=== PATIENT | female | born 1970 | race Caucasian/White ===

== ENCOUNTER 2018-10-20 17:23 | Inpatient (IN) | payer BC ==
[2018-10-20] MEDS ORDERED: ONDANSETRON 4 MG/2 ML VIAL IVP STA (18:24)
[2018-10-20] MEDS ORDERED: MORPHINE SULFATE 4 MG/ML SYRINGE IV STA (18:24)
[2018-10-20] MEDS ORDERED: KETOROLAC 30 MG/ML 1 ML VIAL IVP STA (18:24)
[2018-10-20] MEDS ORDERED: SODIUM CHLORIDE 0.9% 1,000 ML IV STA ×2 (18:24)
--- NOTE | 2018-10-20 19:04 | ED ---
Abdominal Pain HPI - General Chief Complaint: Abdominal Pain Stated Complaint: abdominal pain Time Seen by Provider: 10/20/18 17:58 Source: patient, RN notes reviewed, old records reviewed Mode of arrival: ambulatory Limitations: no limitations - History of Present Illness Initial Comments: 48-year-old female presents emergency Department today. No lower abdominal pain , low-grade fevers and chills for the past 3 days. Patient states that she has had frequent urination. She reports that she's also been having heavy menstrual cycles and bleeding for the past few months. She reports that she has started estrogen and progesterone creams week or 2 ago. She states that her bleeding has stopped. Patient states she is following up with her [facility] doctor Jhoana. She is scheduled to have a hysterectomy due to his prolonged bleeding every fibroids. Patient states that when she called her OB they're concerned because she described a fever and there is concern for not origin for pain. - Related Data Home Medications Medication Instructions Recorded Confirmed Calcium/Magnesium 1 tab PO DAILY 10/20/18 10/20/18 Cyanocobalamin (Vitamin B-12) 1,000 mcg PO DAILY 10/20/18 10/20/18 [Vitamin B-12] Diflucan (Unknown Dose) 1 tab PO MCCORMICK 10/20/18 10/20/18 Happy Pms 1 tab PO DAILY 10/20/18 10/20/18 Licorice Root 1 tab PO DAILY 10/20/18 10/20/18 Vitamin D3 10,000 Iu Oral Solution 5,000 units PO DAILY 10/20/18 10/20/18 Allergies Allergy/AdvReac Type Severity Reaction Status Date / Time No Known Allergies Allergy Verified 10/20/18 17:27 Review of Systems ROS Statement: Those systems with pertinent positive or pertinent negative responses have been documented in the HPI. ROS Other: All systems not noted in ROS Statement are negative. Past Medical History Past Medical History: Diabetes Mellitus Additional Past Medical History / Comment(s): MENORRHAGIA History of Any Multi-Drug Resistant Organisms: None Reported Past Surgical History: Section, Tonsillectomy, Tubal Ligation Additional Past Surgical History / Comment(s): tummy tuck, meliton cataracts, PILONIDAL CYST X3 (LAST 12/26/15), HEMORRHOIDECTOMY (12/26/15), uterine ablation Past Anesthesia/Blood Transfusion Reactions: Motion Sickness, Postoperative Nausea & Vomiting (PONV) Past Psychological History: Anxiety, Depression Smoking Status: Current every day smoker Past Alcohol Use History: Occasional Past Drug Use History: None Reported - Past Family History Mother Family Medical History: No Reported History General Exam - General Exam Comments Initial Comments: Well appearing 48-year-old female. No significant distress. Limitations: no limitations General appearance: alert, in no apparent distress Head exam: Present: atraumatic, normocephalic, normal inspection Eye exam: Present: normal appearance, PERRL, EOMI. Absent: scleral icterus, conjunctival injection, periorbital swelling ENT exam: Present: normal exam, mucous membranes moist Neck exam: Present: normal inspection. Absent: tenderness, meningismus, lymphadenopathy Respiratory exam: Present: normal lung sounds bilaterally. Absent: respiratory distress, wheezes, rales, rhonchi, stridor Cardiovascular Exam: Present: regular rate, normal rhythm, normal heart sounds. Absent: systolic murmur, diastolic murmur, rubs, gallop, clicks GI/Abdominal exam: Present: tenderness, normal bowel sounds. Absent: soft (His abdominal tenderness, guarding over the right lower quadrant.), distended, guarding, rebound, rigid Course Vital Signs 10/20/18 10/20/18 10/20/18 17:24 19:00 20:30 Temperature 98.4 F 101.7 F H 98.7 F Pulse Rate 99 76 Respiratory 18 18 Rate Blood Pressure 136/61 101/60 O2 Sat by Pulse 99 93 L Oximetry Medical Decision Making - Medical Decision Making 48-year-old female 3 days abdominal pain, low-grade fevers presents emergency Department today. She also reports some diarrhea. Treatment urination. At this time patient's white blood count cell count is significantly elevated at 21 ,000. She had a fever 101.7. She is given IV fluids, Toradol IV morphine for pain. She continues to describe lower abdominal pain despite pain medicine. CT was completed. Evidence of diffuse sigmoid diverticulitis. With white blood cell count being elevated 21,000 like to admit the Patient for IV antibiotics, she does meet sepsis criteria. Patient was initially hesitant about admission. I did discuss will she can leave on her own well being signing AMA. She eventually decided to stay. Started the Patient on IV Levaquin and Flagyl. Patient will be on a clear liquid diet. - Lab Data Result diagrams: 10/20/18 18:50 10/20/18 18:50 Lab Results 10/20/18 10/20/18 10/20/18 Range/Units 18:50 18:50 18:50 WBC 21.1 H (3.8-10.6) k/uL RBC 4.35 (3.80-5.40) m/uL Hgb 13.6 (11.4-16.0) gm/dL Hct 41.3 (34.0-46.0) % MCV 94.8 (80.0-100.0) fL MCH 31.4 (25.0-35.0) pg MCHC 33.1 (31.0-37.0) g/dL RDW 12.6 (11.5-15.5) % Plt Count 266 (150-450) k/uL Neutrophils % 81 % Lymphocytes % 13 % Monocytes % 4 % Eosinophils % 1 % Basophils % 0 % Neutrophils # 17.2 H (1.3-7.7) k/uL Lymphocytes # 2.7 (1.0-4.8) k/uL Monocytes # 0.8 (0-1.0) k/uL Eosinophils # 0.2 (0-0.7) k/uL Basophils # 0.1 (0-0.2) k/uL PT (9.0-12.0) sec INR (<1.2) APTT (22.0-30.0) sec Sodium 138 (137-145) mmol/L Potassium 4.1 (3.5-5.1) mmol/L Chloride 101 (98-107) mmol/L Carbon Dioxide 24 (22-30) mmol/L Anion Gap 13 mmol/L BUN 8 (7-17) mg/dL Creatinine 0.83 (0.52-1.04) mg/dL Est GFR (CKD-EPI)AfAm >90 (>60 ml/min/1.73 sqM) Est GFR (CKD-EPI)NonAf 83 (>60 ml/min/1.73 sqM) Glucose 101 H (74-99) mg/dL Plasma Lactic Acid Jose M 1.0 (0.7-2.0) mmol/L Calcium 9.5 (8.4-10.2) mg/dL Total Bilirubin 0.7 (0.2-1.3) mg/dL AST 17 (14-36) U/L ALT 31 (9-52) U/L Alkaline Phosphatase 57 (38-126) U/L Total Protein 7.3 (6.3-8.2) g/dL Albumin 4.3 (3.5-5.0) g/dL Amylase 38 (30-110) U/L Lipase 31 (23-300) U/L Urine Color Urine Appearance (Clear) Urine pH (5.0-8.0) Ur Specific [place] (1.001-1.035) Urine Protein (Negative) Urine Glucose (UA) (Negative) Urine Ketones (Negative) Urine Blood (Negative) Urine Nitrite (Negative) Urine Bilirubin (Negative) Urine Urobilinogen (<2.0) mg/dL Ur Leukocyte Esterase (Negative) Urine RBC (0-5) /hpf Urine WBC (0-5) /hpf Ur Squamous Epith Cells (0-4) /hpf Amorphous Sediment (None) /hpf Urine Bacteria (None) /hpf Urine Mucus (None) /hpf 10/20/18 10/20/18 Range/Units 18:50 18:50 WBC (3.8-10.6) k/uL RBC (3.80-5.40) m/uL Hgb (11.4-16.0) gm/dL Hct (34.0-46.0) % MCV (80.0-100.0) fL MCH (25.0-35.0) pg MCHC (31.0-37.0) g/dL RDW (11.5-15.5) % Plt Count (150-450) k/uL Neutrophils % % Lymphocytes % % Monocytes % % Eosinophils % % Basophils % % Neutrophils # (1.3-7.7) k/uL Lymphocytes # (1.0-4.8) k/uL Monocytes # (0-1.0) k/uL Eosinophils # (0-0.7) k/uL Basophils # (0-0.2) k/uL PT 10.2 (9.0-12.0) sec INR 1.0 (<1.2) APTT 26.1 (22.0-30.0) sec Sodium (137-145) mmol/L Potassium (3.5-5.1) mmol/L Chloride (98-107) mmol/L Carbon Dioxide (22-30) mmol/L Anion Gap mmol/L BUN (7-17) mg/dL Creatinine (0.52-1.04) mg/dL Est GFR (CKD-EPI)AfAm (>60 ml/min/1.73 sqM) Est GFR (CKD-EPI)NonAf (>60 ml/min/1.73 sqM) Glucose (74-99) mg/dL Plasma Lactic Acid Jose M (0.7-2.0) mmol/L Calcium (8.4-10.2) mg/dL Total Bilirubin (0.2-1.3) mg/dL AST (14-36) U/L ALT (9-52) U/L Alkaline Phosphatase (38-126) U/L Total Protein (6.3-8.2) g/dL Albumin (3.5-5.0) g/dL Amylase (30-110) U/L Lipase (23-300) U/L Urine Color Yellow Urine Appearance Cloudy H (Clear) Urine pH 6.0 (5.0-8.0) Ur Specific [place] 1.018 (1.001-1.035) Urine Protein 1+ H (Negative) Urine Glucose (UA) Negative (Negative) Urine Ketones 1+ H (Negative) Urine Blood Moderate H (Negative) Urine Nitrite Negative (Negative) Urine Bilirubin Negative (Negative) Urine Urobilinogen 2.0 (<2.0) mg/dL Ur Leukocyte Esterase Trace H (Negative) Urine RBC 18 H (0-5) /hpf Urine WBC 6 H (0-5) /hpf Ur Squamous Epith Cells 20 H (0-4) /hpf Amorphous Sediment Rare H (None) /hpf Urine Bacteria Few H (None) /hpf Urine Mucus Many H (None) /hpf - Radiology Data Radiology results: report reviewed Moderate marked sigmoid diverticulitis. Patient hasn't had a colonoscopy within the past 2 years when advised eventual follow-up with direct visualization. Disposition Clinical Impression: Sepsis, Diverticulitis Disposition: ADMITTED IP TO THIS HOSP Condition: Good Is patient prescribed a controlled substance at d/c from ED?: No Referrals: Aiden Rush III, MD [Primary Care Provider] - 1-2 days Time of Disposition: 21:14
[2018-10-20 19:22] LABS: Basophils # (A) 0.1 k/uL (0-0.2); Basophils % (A) 0 %; Eosinophils # (A) 0.2 k/uL (0-0.7); Eosinophils % (A) 1 %; HCT 41.3 % (34.0-46.0); HGB 13.6 gm/dL (11.4-16.0); Lymphocytes # (A) 2.7 k/uL (1.0-4.8); Lymphocytes % (A) 13 %; MCH 31.4 pg (25.0-35.0); MCHC 33.1 g/dL (31.0-37.0); MCV 94.8 fL (80.0-100.0); Mean Platelet Volume 6.5; Monocytes # (A) 0.8 k/uL (0-1.0); Monocytes % (A) 4 %; Neutrophils # (A) 17.2 k/uL (1.3-7.7); Neutrophils % (A) 81 %; Platelet Count 266 k/uL (150-450); RBC 4.35 m/uL (3.80-5.40); RDW 12.6 % (11.5-15.5); WBC 21.1 k/uL (3.8-10.6)
[2018-10-20 19:33] LABS: ALT 31 U/L (9-52); AST 17 U/L (14-36); Albumin 4.3 g/dL (3.5-5.0); Alkaline Phosphatase 57 U/L (38-126); Amylase 38 U/L (30-110); Anion Gap 13 mmol/L; Blood Urea Nitrogen 8 mg/dL (7-17); Calcium 9.5 mg/dL (8.4-10.2); Carbon Dioxide 24 mmol/L (22-30); Chloride 101 mmol/L (98-107); Glucose 101 mg/dL (74-99); Lipase 31 U/L (23-300); Potassium 4.1 mmol/L (3.5-5.1); Sodium 138 mmol/L (137-145); Total Bilirubin 0.7 mg/dL (0.2-1.3); Total Protein 7.3 g/dL (6.3-8.2)
[2018-10-20 19:40] LABS: Amorphous Sediment,Urine Rare /hpf; Appearance,Urine Cloudy (Clear); Bacteria,Urine Few /hpf; Bilirubin,Urine Negative (Negative); Blood,Urine Moderate (Negative); Color,Urine Yellow; Glucose,Urine (UA) Negative (Negative); Ketones,Urine 1+ (Negative); Leukocyte Esterase,Urine Trace (Negative); Mucus,Urine Many /hpf; Nitrite,Urine Negative (Negative); Protein,Urine 1+ (Negative); RBC,Urine 18 /hpf (0-5); Specific Gravity,Urine 1.018 (1.001-1.035); Squamous Epithelial Cell,Urine 20 /hpf (0-4); WBC,Urine 6 /hpf (0-5)
[2018-10-20 19:46] LABS: Partial Thromboplastin Time 26.1 sec (22.0-30.0); Prothrombin Time 10.2 sec (9.0-12.0)
--- NOTE | 2018-10-20 20:31 | CT ---
EXAMINATION TYPE: CT abdomen pelvis w con DATE OF EXAM: 10/20/2018 COMPARISON: None HISTORY: Abdominal pain, fever and diarrhea CT DLP: 1011 mGycm. Automated exposure control for dose reduction was used. TECHNIQUE: Helical acquisition of images was performed from the lung bases through the pelvis. CONTRAST: Performed without Oral Contrast and with IV Contrast, patient injected with 100 mL of Isovu e 300. FINDINGS: LUNG BASES: No significant abnormality is appreciated. LIVER/GB: No significant abnormality is appreciated. PANCREAS: No significant abnormality is seen. SPLEEN: No significant abnormality is seen. ADRENALS: No significant abnormality is seen. KIDNEYS: No significant abnormality is seen. PERITONEAL CAVITY: No pneumoperitoneum or peritoneal fluid. RETROPERITONEAL ADENOPATHY: None visualized REPRODUCTIVE ORGANS: No significant abnormality is seen URINARY BLADDER: No significant abnormality is seen. PELVIC ADENOPATHY: None visualized. OSSEOUS STRUCTURES: No significant abnormality is seen. BOWEL: The mid sigmoid colon shows prominent circumferential mural thickening and marked indistinctn ess with edematous reticulation throughout the associated mesocolon -including a few tiny bubbles of extraluminal gas within the mesocolon (perforated into the extraperitoneal space of the mesocolon - n ot the peritoneal cavity). There is no pneumoperitoneum, and there is no peritoneal fluid. No bowel o bstruction. Mesenteric circulation is unremarkable. VASCULATURE: No acute findings. IMPRESSION: MODERATE MARKED SIGMOID DIVERTICULITIS. If the patient has not had colonoscopy in the last 2 years, would advise eventual follow-up direct v isualization.
[2018-10-20] MEDS ORDERED: LEVOFLOXACIN 750MG-D5W PMX 750 MG in DEXTROSE/WATER 1 150ML.BAG IVPB STA (21:04)
[2018-10-20] MEDS ORDERED: metroNIDAZOLE-NS PMX 500 MG in SALINE 1 100ML.BAG IVPB STA (21:07)
[2018-10-20] MEDS ORDERED: NALOXONE 0.4 MG/ML 1 ML VIAL IV PRN (21:15)
[2018-10-20] MEDS: MORPHINE SULFATE 4 MG/ML SYRINGE IV PRN (22:40)
[2018-10-21] MEDS: HYDROmorphone 1 MG/ML 1 ML SYRINGE IVP PRN (02:26)
[2018-10-21] MEDS: SODIUM CHLORIDE 0.9% 1,000 ML IV SCH ×3 (02:28→18:09)
[2018-10-21] MEDS: metroNIDAZOLE-NS PMX 500 MG in SALINE 1 100ML.BAG IVPB SCH ×2 (03:09→07:54)
[2018-10-21] MEDS: PANTOPRAZOLE 40 MG/10 ML VIAL IV SCH (07:54)
[2018-10-21] MEDS: MORPHINE SULFATE 4 MG/ML SYRINGE IV PRN ×3 (07:54→18:25)
[2018-10-21] MEDS: NICOTINE 21MG/24HR PATCH TRANSDERM SCH (09:28)
[2018-10-21] MEDS ORDERED: TEMAZEPAM 15 MG CAP PO PRN (11:28)
[2018-10-21 11:44] LABS: Basophils % (A) 0 %; Eosinophils # (A) 0.3 k/uL (0-0.7); Eosinophils % (A) 2 %; HCT 36.6 % (34.0-46.0); HGB 12.1 gm/dL (11.4-16.0); Lymphocytes # (A) 1.5 k/uL (1.0-4.8); Lymphocytes % (A) 10 %; MCH 31.5 pg (25.0-35.0); MCV 95.5 fL (80.0-100.0); Mean Platelet Volume 6.9; Monocytes # (A) 0.7 k/uL (0-1.0); Monocytes % (A) 4 %; Neutrophils % (A) 82 %; Platelet Count 244 k/uL (150-450); RBC 3.83 m/uL (3.80-5.40); RDW 12.5 % (11.5-15.5); WBC 15.8 k/uL (3.8-10.6)
[2018-10-21] MEDS: MULTIVITAMINS, THERA 1 EACH TAB PO SCH (12:18)
[2018-10-21 12:19] LABS: Albumin 3.6 g/dL (3.5-5.0); Calcium 8.7 mg/dL (8.4-10.2); Potassium 4.7 mmol/L (3.5-5.1); Total Bilirubin 0.6 mg/dL (0.2-1.3); Total Protein 6.4 g/dL (6.3-8.2)
[2018-10-21] MEDS: HEPARIN SODIUM,PORCINE 5,000 UNIT/ML 1 ML VIAL SQ SCH ×2 (12:19→20:11)
[2018-10-21] MEDS: PIPERACILLIN-TAZOBACTAM 3.375 GM in SODIUM CHLORIDE 0.9% 100 ML IVPB SCH ×2 (13:20→20:11)
[2018-10-21] MEDS: HYDROcodone/APAP 5-325MG 1 EACH TAB PO PRN (15:01)
[2018-10-21] MEDS ORDERED: LEVOFLOXACIN 750MG-D5W PMX 750 MG in DEXTROSE/WATER 1 150ML.BAG IVPB SCH (21:00)
--- NOTE | 2018-10-22 00:05 | HP ---
HISTORY AND PHYSICAL CHIEF COMPLAINTS: Abdominal pain. HISTORY OF PRESENT ILLNESS: This 48-year-old woman with a past medical history of diabetes, history of menorrhagia, history of tonsillectomy, anxiety and depression, being followed by Dr. Sunni Dee in the outpatient setting was complaining of abdominal pain for the last several days. The pain was felt in the lower part of the abdomen. Patient initially thought it was related to her uterus and the patient consulted [facility] [employer]. Subsequently, because of lack of improvement, the patient came to [facility] and was admitted for further evaluation and treatment. A CT scan of the abdomen was done and showed moderate marked sigmoid diverticulitis. The patient was admitted to the hospital for further evaluation and treatment. White count is elevated. There is no history of fever, rigors or chills. No history of headache, loss of consciousness, seizures. PAST MEDICAL HISTORY: Diabetes, menorrhagia, section, tonsillectomy, anxiety and depression. MEDICATIONS: Prior to admission include home medications are: 1. Calcium magnesium 1 p.o. daily. 2. Vitamin D 5000 daily. 3. root 1 tab p.o. daily. 4. Happy PMs 1 tablet p.o. daily. 5. Senokot. 6. Vitamin B12 1000 mcg p.o. daily. 7. Diflucan 1 tablet p.o. ALLERGIES: None. FAMILY HISTORY: No history of heart disease or strokes in the family. SOCIAL HISTORY: History of smoking, continued ongoing. No history of alcohol intake. REVIEW OF SYSTEMS: ENT: No diminished hearing or diminished vision. CARDIOVASCULAR: No angina or palpitations. RESPIRATORY: As mentioned earlier. GI: As mentioned earlier. : No dysuria. NERVOUS SYSTEM: No numbness or weakness. ALLERGY/IMMUNOLOGY: No asthma or hayfever. MUSCULOSKELETAL : As mentioned earlier. HEMATOLOGY/ONCOLOGY: No history of anemia. ENDOCRINE: History of diabetes. CONSTITUTIONAL: As mentioned earlier. Dermatology: Negative. Rheumatology: Negative. Psychiatry: As mentioned earlier. PHYSICAL EXAMINATION: Alert and oriented times three. Pulse is 90, blood pressure 119/72, respiration 16, temperature 97.9, pulse ox 93% on room air. HEENT: Conjunctivae normal. Oral mucosa moist. NECK is no jugular venous distention. No carotid bruit. No lymph node enlargement. Cardiovascular system: S1, S2. RESPIRATORY: Breath sounds diminished in the bases. A few rhonchi. No crackles. ABDOMEN: Soft. Mild diffuse tenderness especially in the lower part. No guarding. No rigidity. No mass palpable. LEGS: No edema. No swelling. NERVOUS SYSTEM: No focal deficits. LABS: WBC 15.8, hemoglobin is 12.1, sodium is 136. The UA noted. ASSESSMENT: 1. Acute diverticulitis with severe acute respiratory syndrome. 2. Increased WBC. 3. Abdominal pain. 4. Diabetes mellitus type 2. 5. History of menorrhagia. 6. History of section. 7. History of tonsillectomy. 8. History of anxiety, depression. 9. History of nicotine dependence. 10.FULL CODE. RECOMMENDATIONS AND DISCUSSION: In this 48-year-old woman who presented with multiple complex medical issues, we will monitor the patient closely. Continue the current medications, management and symptomatic treatment. We will initiate broad-spectrum IV antibiotics. Surgical consultation. Follow the cultures. Symptomatic treatment. DVT prophylaxis. See orders for details. Prognosis guarded. Further recommendations to follow. Smoking cessation has been advised. Copy of dictation forwarded to Dr. Sunni Dee who is the primary physician. MMODL / IJN: [id number] / MTDD
[2018-10-22] MEDS: SODIUM CHLORIDE 0.9% 1,000 ML IV SCH ×2 (03:05→21:05)
[2018-10-22] MEDS: PIPERACILLIN-TAZOBACTAM 3.375 GM in SODIUM CHLORIDE 0.9% 100 ML IVPB SCH ×3 (03:46→20:05)
[2018-10-22] MEDS: HYDROcodone/APAP 5-325MG 1 EACH TAB PO PRN ×2 (04:01→12:06)
[2018-10-22] MEDS: NICOTINE 21MG/24HR PATCH TRANSDERM SCH (07:49)
[2018-10-22] MEDS: PANTOPRAZOLE 40 MG/10 ML VIAL IV SCH (07:50)
[2018-10-22] MEDS: HEPARIN SODIUM,PORCINE 5,000 UNIT/ML 1 ML VIAL SQ SCH ×2 (07:50→20:04)
[2018-10-22 08:58] LABS: Basophils % (A) 0 %; Eosinophils # (A) 0.4 k/uL (0-0.7); Eosinophils % (A) 3 %; HCT 36.6 % (34.0-46.0); HGB 12.1 gm/dL (11.4-16.0); Lymphocytes # (A) 2.1 k/uL (1.0-4.8); Lymphocytes % (A) 17 %; MCH 31.7 pg (25.0-35.0); MCHC 33.2 g/dL (31.0-37.0); MCV 95.4 fL (80.0-100.0); Mean Platelet Volume 7.1; Monocytes # (A) 0.4 k/uL (0-1.0); Monocytes % (A) 3 %; Neutrophils # (A) 9.1 k/uL (1.3-7.7); Neutrophils % (A) 75 %; Platelet Count 265 k/uL (150-450); RBC 3.83 m/uL (3.80-5.40); RDW 12.6 % (11.5-15.5); WBC 12.1 k/uL (3.8-10.6)
[2018-10-22 09:00] LABS: Anion Gap 9 mmol/L; Blood Urea Nitrogen 5 mg/dL (7-17); Calcium 8.7 mg/dL (8.4-10.2); Carbon Dioxide 22 mmol/L (22-30); Chloride 108 mmol/L (98-107); Glucose 161 mg/dL (74-99); Potassium 4.4 mmol/L (3.5-5.1); Sodium 139 mmol/L (137-145)
--- NOTE | 2018-10-22 10:12 | P.GSCN ---
History of Present Illness Consult date: 10/22/18 Reason for Consult: Diverticulitis History of present illness: Patient hospitalized because of suprapubic abdominal pain. She was having fevers while at home. The symptoms began 3-4 days prior to admission. Patient spoke with gynecology while she was at home and they'll instruct her to come to the hospital. CAT scan showed diverticulitis with a small focus of extraluminal air adjacent fat. There is no free intraperitoneal air seen. Patient has improved. When she arrived she said her pain was 9 out of 10. Currently 4 out of 10. T-max 100 white blood cell count improved now at 12. She is tolerating clears. Some constipation now but had some loose stools initially. Similar episode approximately one to 2 years ago. No previous colonoscopy. No rectal bleeding or melena. Review of Systems The patient denies any acute changes in vision or hearing, no dysphagia or odynophagia, no chest pain or shortness of breath, no dysuria or hematuria, no headache, no runny nose, no rectal bleeding or melena, no unexplained weight loss Past Medical History Past Medical History: Diabetes Mellitus Additional Past Medical History / Comment(s): MENORRHAGIA History of Any Multi-Drug Resistant Organisms: None Reported Past Surgical History: Section, Tonsillectomy, Tubal Ligation Additional Past Surgical History / Comment(s): tummy tuck, meliton cataracts, PILONIDAL CYST X3 (LAST 12/26/15), HEMORRHOIDECTOMY (12/26/15), uterine ablation Past Anesthesia/Blood Transfusion Reactions: Motion Sickness, Postoperative Nausea & Vomiting (PONV) Past Psychological History: Anxiety, Depression Smoking Status: Current every day smoker Past Alcohol Use History: Occasional Additional Past Alcohol Use History / Comment(s): smokes 1/2 PPD, started smoking age 11. smoked for 33 yrs Past Drug Use History: None Reported - Past Family History Mother Family Medical History: No Reported History Medications and Allergies Home Medications Medication Instructions Recorded Confirmed Type Calcium/Magnesium 1 tab PO DAILY 10/20/18 10/20/18 History Cyanocobalamin (Vitamin B-12) 1,000 mcg PO DAILY 10/20/18 10/20/18 History [Vitamin B-12] Diflucan (Unknown Dose) 1 tab PO MCCORMICK 10/20/18 10/20/18 History Happy Pms 1 tab PO DAILY 10/20/18 10/20/18 History Licorice Root 1 tab PO DAILY 10/20/18 10/20/18 History Vitamin D3 10,000 Iu Oral Solution 5,000 units PO DAILY 10/20/18 10/20/18 History Allergies Allergy/AdvReac Type Severity Reaction Status Date / Time No Known Allergies Allergy Verified 10/20/18 17:27 Surgical - Exam Vital Signs Temp Pulse Resp BP Pulse Ox 98.4 F 99 18 136/61 99 10/20/18 17:24 10/20/18 17:24 10/20/18 17:24 10/20/18 17:24 10/20/18 17:24 Physical exam: General: Well-developed, well-nourished HEENT: Normocephalic, sclerae nonicteric Abdomen: Suprapubic tenderness, no rebound or guarding, nondistended Extremities: No edema Neuro: Alert and oriented Results - Labs 10/22/18 08:30 10/22/18 08:30 Abnormal Lab Results - Last 24 Hours (Table) 10/21/18 10/21/18 10/22/18 Range/Units 11:11 11: 08:30 WBC 15.8 H 12.1 H (3.8-10.6) k/uL Neutrophils # 13.0 H 9.1 H (1.3-7.7) k/uL Sodium 136 L (137-145) mmol/L Chloride (98-107) mmol/L BUN (7-17) mg/dL Glucose (74-99) mg/dL 10/22/18 Range/Units 08:30 WBC (3.8-10.6) k/uL Neutrophils # (1.3-7.7) k/uL Sodium (137-145) mmol/L Chloride 108 H (98-107) mmol/L BUN 5 L (7-17) mg/dL Glucose 161 H (74-99) mg/dL Microbiology - Last 24 Hours (Table) 10/20/18 18:50 Urine Culture - Final Urine,Catheterized Strep agalactiae - (group b) 10/20/18 18:50 Blood Culture - Preliminary Blood No Growth after 24 hours Diabetes panel 10/21/18 10/22/18 Range/Units 11:11 08:30 Sodium 136 L 139 (137-145) mmol/L Potassium 4.7 4.4 (3.5-5.1) mmol/L Chloride 102 108 H (98-107) mmol/L Carbon Dioxide 26 22 (22-30) mmol/L BUN 8 5 L (7-17) mg/dL Creatinine 0.89 0.75 (0.52-1.04) mg/dL Glucose 90 161 H (74-99) mg/dL Calcium 8.7 8.7 (8.4-10.2) mg/dL AST 15 (14-36) U/L ALT 26 (9-52) U/L Alkaline Phosphatase 56 (38-126) U/L Total Protein 6.4 (6.3-8.2) g/dL Albumin 3.6 (3.5-5.0) g/dL Calcium panel 10/21/18 10/22/18 Range/Units 11:11 08:30 Calcium 8.7 8.7 (8.4-10.2) mg/dL Albumin 3.6 (3.5-5.0) g/dL Pituitary panel 10/21/18 10/22/18 Range/Units 11:11 08:30 Sodium 136 L 139 (137-145) mmol/L Potassium 4.7 4.4 (3.5-5.1) mmol/L Chloride 102 108 H (98-107) mmol/L Carbon Dioxide 26 22 (22-30) mmol/L BUN 8 5 L (7-17) mg/dL Creatinine 0.89 0.75 (0.52-1.04) mg/dL Glucose 90 161 H (74-99) mg/dL Calcium 8.7 8.7 (8.4-10.2) mg/dL Adrenal panel 10/21/18 10/22/18 Range/Units 11:11 08:30 Sodium 136 L 139 (137-145) mmol/L Potassium 4.7 4.4 (3.5-5.1) mmol/L Chloride 102 108 H (98-107) mmol/L Carbon Dioxide 26 22 (22-30) mmol/L BUN 8 5 L (7-17) mg/dL Creatinine 0.89 0.75 (0.52-1.04) mg/dL Glucose 90 161 H (74-99) mg/dL Calcium 8.7 8.7 (8.4-10.2) mg/dL Total Bilirubin 0.6 (0.2-1.3) mg/dL AST 15 (14-36) U/L ALT 26 (9-52) U/L Alkaline Phosphatase 56 (38-126) U/L Total Protein 6.4 (6.3-8.2) g/dL Albumin 3.6 (3.5-5.0) g/dL Assessment and Plan (1) Diverticulitis Narrative/Plan: Continue IV antibiotics. Continue clear liquids. Recheck CBC tomorrow. Plan colonoscopy 6-8 weeks. Current Visit: Yes Status: Acute Code(s): K57.92 - DVTRCLI OF INTEST, PART UNSP, W/O PERF OR ABSCESS W/O BLEED SNOMED Code(s): 540176362
[2018-10-22] MEDS: MULTIVITAMINS, THERA 1 EACH TAB PO SCH (11:31)
[2018-10-22] MEDS: MORPHINE SULFATE 4 MG/ML SYRINGE IV PRN (13:45)
[2018-10-22] MEDS ORDERED: KETOROLAC 30 MG/ML 1 ML VIAL IVP STA (15:07)
[2018-10-22] MEDS: HYDROmorphone 1 MG/ML 1 ML SYRINGE IVP PRN (20:04)
--- NOTE | 2018-10-22 20:06 | PN ---
PROGRESS NOTE DATE OF SERVICE: 10/22/2018 This is a 48-year-old woman who was admitted with acute diverticulitis, SARS, is being closely monitored. Dr. French has re-evaluated the CT scan of the abdomen which showed a small foci of extraluminal air consistent with fat and a possible microperforation was suspected. The patient is on IV antibiotics. The patient is complaining of some mild abdominal pain. No guarding, no rigidity. Patient is being closely monitored. Patient on broad-spectrum IV antibiotics. PHYSICAL EXAM: Alert and oriented x3. The pulse is 75, blood pressure 107/78, respiration 20, temperature 98.4, pulse ox 98% on room air. HEENT: Conjunctivae normal. Oral mucosa moist. NECK: No jugular venous distention. No lymph node enlargement. CARDIOVASCULAR: S1, S2. RESPIRATORY: Diminished breath sounds at the bases. No rhonchi, no crackles. ABDOMEN: Soft, mild diffuse discomfort. No guarding. No rigidity. No mass palpable. No rebound tenderness. Bowel sounds present. No ascites. LEGS: No swelling. NERVOUS SYSTEM: No focal deficits. LABS: WBC 12.1, sodium 139, potassium 4.4. ASSESSMENT: 1. Acute diverticulitis with microperforation with possibly minimal diverticular abscess with air extraluminal. 2. Severe acute respiratory syndrome, present on admission. 3. Increased WBC. 4. Abdominal pain. 5. Diabetes mellitus type 2. 6. History of menorrhagia. 7. Status history of tonsillectomy. 8. History of anxiety, depression. 9. History of nicotine dependence. 10.FULL CODE. RECOMMENDATIONS: Continue current management, continue symptomatic treatment. At this time I recommend continue with broad-spectrum IV antibiotics, closely follow with Dr. French, stay on clear liquids. Prognosis guarded. Further recommendations to follow. MMODL / IJN: [id number] /
[2018-10-22] MEDS ORDERED: ACETAMINOPHEN IV (For NPO) 1,000 MG in EMPTY BAG 1 BAG IVPB PRN (20:25)
[2018-10-22] MEDS ORDERED: KETOROLAC 30 MG/ML 1 ML VIAL IVP PRN (20:30)
[2018-10-22] MEDS: SIMETHICONE 40 MG/0.6 ML DROPS 2,000 MG/30 ML BOTTLE PO PRN (22:10)
[2018-10-23] MEDS: PIPERACILLIN-TAZOBACTAM 3.375 GM in SODIUM CHLORIDE 0.9% 100 ML IVPB SCH ×3 (03:32→21:16)
[2018-10-23] MEDS: SODIUM CHLORIDE 0.9% 1,000 ML IV SCH (03:32)
[2018-10-23] MEDS: HYDROcodone/APAP 5-325MG 1 EACH TAB PO PRN (05:43)
--- NOTE | 2018-10-23 07:10 | XR ---
EXAMINATION TYPE: XR abdomen acute w cxr DATE OF EXAM: 10/23/2018 COMPARISON: CT abdomen pelvis dated 10/20/2018 HISTORY: Diverticulitis. Follow-up exam. TECHNIQUE: Frontal upright chest radiograph, upright abdominal radiograph, and supine abdominal radi ographs were obtained FINDINGS: Curvilinear air is seen beneath both hemidiaphragms, however the hemidiaphragms appear thic k measuring 5 mm bilaterally and therefore this likely represents apposition of colon and stomach aga inst the hemidiaphragms rather than pneumoperitoneum although small volume pneumoperitoneum is a poss ibility. Scattered colonic air-fluid levels are seen within the nondilated large bowel throughout. Cecal gaseo us distention without dilation is present on the supine image only. No dilated loops of small bowel. There is a very mild levoscoliotic curvature of the lumbar spine. Tubal ligation clips are seen withi n the pelvis. Left basilar atelectasis is seen within the lungs. No focal consolidation, pleural effusion or pneumo thorax. Cardia mediastinal fluid is within normal limits. IMPRESSION: 1. Small volume air beneath both hemidiaphragms is favored to be within the colon and gastric fundus given the bilateral hemidiaphragms thickness, however small volume pneumoperitoneum remains a possibi lity and short-term follow-up is recommended. 2. Scattered colonic air-fluid levels within the nondilated colon relate to colonic malabsorption. No nobstructive bowel gas pattern. 3. Minimal left basilar subsegmental atelectasis.
[2018-10-23] MEDS: NICOTINE 21MG/24HR PATCH TRANSDERM SCH (07:45)
[2018-10-23] MEDS: PANTOPRAZOLE 40 MG/10 ML VIAL IV SCH (07:45)
[2018-10-23] MEDS: HEPARIN SODIUM,PORCINE 5,000 UNIT/ML 1 ML VIAL SQ SCH ×2 (07:45→21:16)
--- NOTE | 2018-10-23 08:46 | CT ---
EXAMINATION TYPE: CT abdomen pelvis wo con DATE OF EXAM: 10/23/2018 COMPARISON: 10/20/2018 HISTORY: diverticulitis, possible perforation CT DLP: 885.5 mGycm Automated exposure control for dose reduction was used. TECHNIQUE: Helical acquisition of images was performed from the lung bases through the pelvis. FINDINGS: LUNG BASES: Subsegmental changes at both lung bases are incidentally noted.. LIVER/GB: Liver is enlarged there is reduced attenuation compatible hepatic steatosis. Cannot exclude tiny gallstones.. PANCREAS: No significant abnormality is seen. SPLEEN: No significant abnormality is seen. ADRENALS: No significant abnormality is seen. KIDNEYS: No significant abnormality is seen. ADENOPATHY: None visualized. OSSEOUS STRUCTURES: No significant abnormality is seen. BOWEL: The mid sigmoid colon shows prominent circumferential mural thickening and marked indistinctn ess with edematous reticulation throughout the associated mesocolon -including a few bubbles of extr aluminal gas within the mesocolon. Diverticular disease noted. There is moderate pneumoperitoneum exa m which suggest evidence of bowel perforation. Report called the patient's nurse immediately. OTHER: Uterus is somewhat prominent in size and is evidence of previous surgical procedure. Small ant erior abdominal wall hernia noted. Soft tissue nodule in the left adnexa likely representing a normal -appearing ovary with a small cyst which is stable from the prior exam. There is thickening of the la teral conal fascia with a tiny amount of fluid bilaterally. IMPRESSION: 1. Persistent changes of acute diverticulitis of the sigmoid colon with evidence of free intraperiton eal air now noted in the upper abdomen correlate for bowel perforation. Results were immediately call ed to the patient's nurse by telephone. 2. Hepatic steatosis.
[2018-10-23] MEDS: MULTIVITAMINS, THERA 1 EACH TAB PO SCH (11:09)
[2018-10-23 11:21] LABS: Basophils % (A) 0 %; Eosinophils # (A) 0.2 k/uL (0-0.7); Eosinophils % (A) 2 %; Lymphocytes # (A) 1.5 k/uL (1.0-4.8); Lymphocytes % (A) 11 %; MCH 30.2 pg (25.0-35.0); MCHC 31.5 g/dL (31.0-37.0); MCV 96.1 fL (80.0-100.0); Mean Platelet Volume 6.7; Monocytes # (A) 0.5 k/uL (0-1.0); Monocytes % (A) 4 %; Neutrophils # (A) 10.8 k/uL (1.3-7.7); Neutrophils % (A) 82 %; Platelet Count 329 k/uL (150-450); RBC 3.64 m/uL (3.80-5.40); RDW 12.5 % (11.5-15.5); WBC 13.2 k/uL (3.8-10.6)
[2018-10-23 11:38] LABS: Calcium 8.8 mg/dL (8.4-10.2); Potassium 4.4 mmol/L (3.5-5.1)
[2018-10-23] MEDS ORDERED: LORazepam 2 MG/ML INJ IV STA (12:39)
--- NOTE | 2018-10-23 12:52 | P.PN ---
<Loly Garciane M - Last Filed: 10/23/18 12:36> Subjective Progress Note Date: 10/23/18 48-year-old female seen sitting up in a chair this morning states there is an improvement in the pain that she had been experiencing yesterday the pain has decreased but continues to persist in the left lower quadrant patient stated that she had 1 loose stool yesterday morning. Nausea sensation no active emesis. Attempted max to 102.1 at 10:00 last night. Current temp is 98 white count 13.2 patient had undergone this morning a computed tomography scan of the abdomen and pelvis. Reviewing the report showed persistent changes of acute diverticulitis of the sigmoid colon with evidence of free intraperitoneal air now noted in the upper abdomen correlate for bowel perforation. Sitting up crying patient states is overwhelmed by everything that has been going on and feeling overly anxious Objective - Vital Signs Vital signs: Vital Signs Temp 98.0 F 10/23/18 06:27 Pulse 80 10/23/18 06:27 Resp 16 10/23/18 06:27 BP 108/68 10/23/18 06:27 Pulse Ox 91 L 10/23/18 06:27 Intake & Output 10/22/18 10/23/18 10/23/18 18:59 06:59 18:59 Weight 88 kg Other: Voiding Method Toilet Toilet # Voids 3 2 1 # Bowel Movements 1 - Exam Physical exam 48-year-old female sitting up in a chair continues to report having left lower quadrant abdominal pain persist not as intense "" Lungs adequate air movement bilaterally on room air heart S1-S2 regular no murmur denying chest pain Abdomen diffuse tenderness across the abdominal wall left lower quadrant greater than the right active bowel tones reports a nausea sensation no active emesis states had one bowel movement last evening small amount Studies no edema noted - Labs CBC & Chem 7: 10/23/18 10:39 10/23/18 10:39 Labs: Abnormal Lab Results - Last 24 Hours (Table) 10/23/18 Range/Units 10:39 WBC 13.2 H (3.8-10.6) k/uL RBC 3.64 L (3.80-5.40) m/uL Hgb 11.0 L (11.4-16.0) gm/dL Neutrophils # 10.8 H (1.3-7.7) k/uL Microbiology - Last 24 Hours (Table) 10/20/18 18:50 Blood Culture - Preliminary Blood No Growth after 48 hours Assessment and Plan Assessment: Impression Present on admission right lower quadrant pain suspect due to an acute diverticulitis with computed tomography scan abdomen and pelvis showing evidence of free intraperitoneal air Present on admission lower abdominal pain low-grade temp fever chills leukocytosis suspect due to acute diverticulitis meet SIRS criteria Present on admission right lower quadrant abdominal pain suspect due to moderate sigmoid diverticulitis as evident on a CAT scan of the abdomen pelvis Anxiety nonspecified Plan Dr. French did explain treatment options with patient will be scheduled today for exploratory laparotomy sigmoid colectomy,end colostomy Keep nothing by mouth Pain control DVT and GI prophylaxis IV fluid hydration One-time dose of 0.5 IV Ativan for anxiety IV Zosyn as ordered Further surgical recommendations pending The above impression and plan of care have been discussed and directed by signing physician. Camille Garcia nurse practitioner acting as scribe for signing physician. <Logan French - Last Filed: 10/23/18 16:48> Objective - Vital Signs Vital signs: Vital Signs Temp 98.8 F 10/23/18 15:29 Pulse 92 10/23/18 15:29 Resp 16 10/23/18 15:29 BP 133/79 10/23/18 15:29 Pulse Ox 93 L 10/23/18 15:29 Intake & Output 10/22/18 10/23/18 10/23/18 18:59 06:59 18:59 Intake Total 100 Balance 100 Weight 88 kg Intake: IV 100 Other: Voiding Method Toilet Toilet # Voids 3 2 1 # Bowel Movements 1 - Labs CBC & Chem 7: 10/23/18 10:39 10/23/18 10:39 Labs: Abnormal Lab Results - Last 24 Hours (Table) 10/23/18 Range/Units 10:39 WBC 13.2 H (3.8-10.6) k/uL RBC 3.64 L (3.80-5.40) m/uL Hgb 11.0 L (11.4-16.0) gm/dL Neutrophils # 10.8 H (1.3-7.7) k/uL Microbiology - Last 24 Hours (Table) 10/20/18 18:50 Blood Culture - Preliminary Blood No Growth after 48 hours Assessment and Plan Assessment: As above. Patient with evidence of reperforation that likely occurred yesterday afternoon. Still having ongoing pain. Fevers last night of 102. White blood cell count came back up somewhat. Options discussed in detail with the patient and also her mother. Further observation versus exploratory laparotomy with colectomy and colostomy discussed. We decided to proceed with Garsia's procedure. Risks of bleeding, infection, abscess, ureteral injury, bladder injury, hernia, ostomy related complications including ischemia retraction and bleeding reviewed. They understand and wish to proceed. (1) Diverticulitis Current Visit: Yes Status: Acute Code(s): K57.92 - DVTRCLI OF INTEST, PART UNSP, W/O PERF OR ABSCESS W/O BLEED SNOMED Code(s): 348993753
[2018-10-23] MEDS ORDERED: IV FLUID CONTINUATION 1,000 ML IV ONE (15:28)
[2018-10-23] MEDS ORDERED: NALOXONE 0.4 MG/ML 1 ML VIAL IV PRN ×2 (16:09→16:10)
[2018-10-23] MEDS ORDERED: PROPOFOL 10 MG/ML 20 ML VIAL IV ONE (16:26)
[2018-10-23] MEDS ORDERED: NEOSTIGMINE 1 MG/ML 10 ML VIAL ONE (16:26)
[2018-10-23] MEDS ORDERED: ROCURONIUM BROMIDE 10 MG/ML 10 ML VIAL IV ONE (16:26)
[2018-10-23] MEDS ORDERED: MIDAZOLAM 2 MG/2 ML VIAL ONE (16:26)
[2018-10-23] MEDS ORDERED: fentaNYL (PF) 50 MCG/ML 2 ML AMP ONE (16:26)
[2018-10-23] MEDS ORDERED: LIDOCAINE 1% INJ 10MG/ML (20 ML MDV) ONE (16:26)
[2018-10-23] MEDS ORDERED: GLYCOPYRROLATE 0.2 MG/ML 2 ML VIAL ONE (16:26)
[2018-10-23] MEDS ORDERED: LACTATED RINGERS 1,000 ML IV ONE ×2 (17:21→18:45)
[2018-10-23] MEDS: ROPIVACAINE 400 MG, fentaNYL (PF) 1,250 MCG in SODIUM CHLORIDE 0.9% 145 ML EPIDURAL PRN ×2 (18:59→19:57)
[2018-10-23] MEDS ORDERED: MIDAZOLAM 2 MG/2 ML VIAL IVP ONE (19:20)
--- NOTE | 2018-10-23 19:32 | P.OP ---
Date of Procedure: 10/23/18 Procedure(s) Performed: PREOPERATIVE DIAGNOSIS: Perforated sigmoid diverticulitis POSTOPERATIVE DIAGNOSIS: Same PROCEDURE: Sigmoid colectomy with end colostomy, incidental appendectomy SURGEON: Gillian EBL: 48 Shannan ANESTHESIA: General COMPLICATIONS: None OPERATIVE PROCEDURE: Patient place in the operative table in the supine position. The patient was placed under general anesthesia. The abdomen was prepped and draped in usual sterile fashion. A vertical incision was made encompassing extending from the suprapubic region above the umbilicus. The fascia was divided as well. The patient had a fascial defect at the umbilicus that was incorporated into our incision and later closed with our fascial closure. Upon entrance into the peritoneal cavity purulent fluid was identified. The Bookwalter retractor was utilized. There were small bowel loops that were gently adherence to the inflamed sigmoid colon loop. These were able to be lysed quite easily. The patient's appendix was also incorporated into that inflammatory. The appendix itself however appeared normal. I did decide to remove the appendix at this time. The base of the appendix was divided using a linear 75 stapler. The mesoappendix was divided using a LigaSure device. The site of perforation was identified. I divided the sigmoid colon proximal to this using a linear 75 stapler. The mesentery was divided at that time using the LigaSure device. Beyond the inflamed segment I divided the distal sigmoid colon using a contour stapler. 2 separate 2-0 Prolene sutures were used on the staple line for future identification. The sigmoid colon was then mobilized further by dividing a portion of mesentery proximally and also dividing the white line of Toldt. The patient's uterus it should be mentioned was fairly large greater than fist sized. The patient had at least a left ovarian cyst. I could not visualize the right ovary well. Once I had enough length on the colon the abdomen was copiously irrigated with 3 L of saline. No further purulence was encountered at that time. A circular incision was made in the left midabdomen. Dissection through the subcutaneous fat and fascia took place using electrocautery. I bluntly entered the perineal cavity and this was further bluntly opened. The bowel was brought out through this defect in the left midabdomen. The midline fascia was then reapproximated using 2 separate double-stranded #1 PDS sutures. The saphenous tissues were irrigated. The subcutaneous tissues were closed using 3-0 Vicryl sutures. The skin was then closed using kasi. 3 separate sites were left open along the midline incision for Telfa wick placement. The ostomy was then addressed. A portion of the pericolonic fat was removed using the LigaSure device. The staple line was then removed using electrocautery. The ostomy was then matured in a ekuk fashion using interrupted 3-0 Vicryl sutures. An ostomy appliance was then applied. Sterile dressings were then applied to the midline incision. DISPOSITION: Stable to recovery room
[2018-10-23 20:06] LABS: Glucose,Whole Blood 96 mg/dL (75-99)
[2018-10-23] MEDS: DEXTROSE 5%-0.45% NACL 1,000 ML IV SCH (20:32)
--- NOTE | 2018-10-23 21:08 | PN ---
PROGRESS NOTE DATE OF SERVICE: 10/23/2018 48-year-old woman was admitted with acute diverticulitis with microperforation, had significant air under the diaphragm. Dr. French is planning surgery today. No chest pain. No palpitations. No fever. PHYSICAL EXAM: Alert and oriented times three. Pulse is 92, blood pressure 130/79, respiration 16, temperature 99.4, pulse ox 93% on room air. HEENT: Conjunctivae normal. NECK: No jugular venous distention. CARDIOVASCULAR: S1, S2. Respiratory: Breath sounds diminished in the bases. A few scattered rhonchi. ABDOMEN: Soft. Mild diffuse distention. Mild diffuse tenderness. No guarding. No rigidity. Legs are no edema. No swelling. Nervous system: No focal deficits. LABS: WBC 13.2, hemoglobin 11. ASSESSMENT: 1. Acute severe diverticulitis with perforation with diverticular abscess. 2. Systemic inflammatory response syndrome present on admission. 3. Increased WBC. 4. Abdominal pain. 5. Diabetes mellitus type 2. 6. History of menorrhagia. 7. History of tonsillectomy. 8. History of anxiety, depression. 9. History of nicotine dependence. 10.FULL CODE. RECOMMENDATIONS AND DISCUSSION: Recommend to continue current medications, management and symptomatic treatment. Continue with antibiotics. DVT prophylaxis. Otherwise, closely monitor with Dr. French. Guarded prognosis. Further recommendations to follow. See orders for details. Incentive spirometry. MMODL / IJN: [id number] /
[2018-10-23] MEDS ORDERED: diphenhydrAMINE 50 MG/ML 1 ML VIAL IVP PRN (21:25)
[2018-10-23] MEDS ORDERED: ACETAMINOPHEN IV (For NPO) 1,000 MG in EMPTY BAG 1 BAG IVPB PRN (22:43)
[2018-10-23] MEDS: metroNIDAZOLE-NS PMX 500 MG in SALINE 1 100ML.BAG IVPB SCH (23:50)
[2018-10-24] MEDS: PIPERACILLIN-TAZOBACTAM 3.375 GM in SODIUM CHLORIDE 0.9% 100 ML IVPB SCH ×3 (04:28→20:23)
[2018-10-24] MEDS: DEXTROSE 5%-0.45% NACL 1,000 ML IV SCH ×4 (04:28→21:11)
--- NOTE | 2018-10-24 07:23 | P.PN ---
Progress Note - Text Progress Note Date: 10/24/18 patient evaluated VAS 4/10 epidural Running at 10 ml/hr Denies any complications continue current rate and management per primary team
[2018-10-24] MEDS: HEPARIN SODIUM,PORCINE 5,000 UNIT/ML 1 ML VIAL SQ SCH ×2 (08:03→20:31)
[2018-10-24] MEDS: NICOTINE 21MG/24HR PATCH TRANSDERM SCH (08:03)
[2018-10-24] MEDS: PANTOPRAZOLE 40 MG/10 ML VIAL IV SCH (08:03)
--- NOTE | 2018-10-24 08:21 | XR ---
EXAMINATION TYPE: XR chest 2V DATE OF EXAM: 10/24/2018 COMPARISON: Prior chest x-ray and CT 10/23/2018 HISTORY: Fever, abnormal chest x-ray, pneumoperitoneum TECHNIQUE: Frontal and lateral views of the chest are obtained. FINDINGS: Pneumoperitoneum is again noted. No evident pneumothorax. Patient is rotated. Atelectatic changes are suspected, lung volumes are low. Heart size accentuated due to rotation. IMPRESSION: Expiratory rotated exam. Suspect bilateral atelectatic changes. Pneumoperitoneum as desc ribed in prior reports.
[2018-10-24] MEDS: metroNIDAZOLE-NS PMX 500 MG in SALINE 1 100ML.BAG IVPB SCH ×3 (08:38→23:33)
[2018-10-24 09:32] LABS: Basophils % (A) 0 %; Eosinophils # (A) 0.2 k/uL (0-0.7); Eosinophils % (A) 1 %; HCT 37.3 % (34.0-46.0); HGB 11.9 gm/dL (11.4-16.0); Lymphocytes # (A) 1.3 k/uL (1.0-4.8); Lymphocytes % (A) 8 %; MCH 31.1 pg (25.0-35.0); MCHC 31.9 g/dL (31.0-37.0); MCV 97.6 fL (80.0-100.0); Mean Platelet Volume 6.7; Monocytes # (A) 0.7 k/uL (0-1.0); Monocytes % (A) 4 %; Neutrophils # (A) 14.2 k/uL (1.3-7.7); Neutrophils % (A) 85 %; Platelet Count 338 k/uL (150-450); RBC 3.82 m/uL (3.80-5.40); RDW 12.6 % (11.5-15.5); WBC 16.7 k/uL (3.8-10.6)
[2018-10-24 10:01] LABS: Calcium 8.3 mg/dL (8.4-10.2); Potassium 4.1 mmol/L (3.5-5.1)
--- NOTE | 2018-10-24 10:26 | P.PN ---
<Camille Garcia M - Last Filed: 10/24/18 10:12> Subjective Progress Note Date: 10/24/18 48-year-old female seen this morning in a postop visit sitting up in a chair teary-eyed states this is overwhelming I don't think I can deal with this. Epidural in place for pain control wbc 16.7 electrolytes within normal limits febrile temp maxed 102.8 at midnight current 100.5 surgical dressing dry indwelling Saunders catheter in place reports no nausea vomiting Postop October 23 Sigmoid colectomy with end colostomy, incidental appendectomy for perforated sigmoid diverticulitis Objective - Vital Signs Vital signs: Vital Signs Temp 100.5 F H 10/24/18 06:14 Pulse 93 10/24/18 06:14 Resp 20 10/24/18 06:14 BP 110/60 10/24/18 06:14 Pulse Ox 94 L 10/24/18 06:14 Intake & Output 10/23/18 10/24/18 10/24/18 18:59 06:59 18:59 Intake Total 1700 658 Output Total 100 400 Balance 1600 258 Intake: IV 1700 658 Dextrose 5%-0.45% NaCl 1, 150 000 ml @ 150 mls/hr IV . Q6H40M [facility] Rx#:[id number] Output: Urine 50 400 Estimated Blood Loss 50 Other: Voiding Method Indwelling Catheter Indwelling Catheter # Voids 1 - Exam Physical exam 48-year-old female sitting up in a chair crying states feels overwhelmed overly anxious Lungs adequate air movement bilaterally on room air no cough noted heart S1-S2 regular no murmur denying chest pain Abdomen soft few hypoactive bowel tones ostomy with an ostomy appliance in place no stool not passing gas no nausea tolerating ice chips surgical tenderness appropriate indwelling Saunders catheter in place surgical dressing dry 2 midline incision no edema noted to extremities - Labs CBC & Chem 7: 10/24/18 09:13 10/24/18 09:13 Labs: Abnormal Lab Results - Last 24 Hours (Table) 10/23/18 10/24/18 10/24/18 Range/Units 10:39 09:13 09:13 WBC 13.2 H 16.7 H (3.8-10.6) k/uL RBC 3.64 L (3.80-5.40) m/uL Hgb 11.0 L (11.4-16.0) gm/dL Neutrophils # 10.8 H 14.2 H (1.3-7.7) k/uL Glucose 116 H (74-99) mg/dL Calcium 8.3 L (8.4-10.2) mg/dL Microbiology - Last 24 Hours (Table) 10/22/18 20:53 Blood Culture - Preliminary Blood No Growth after 24 hours 10/22/18 21:03 Blood Culture - Preliminary Blood No Growth after 24 hours 10/20/18 18:50 Blood Culture - Preliminary Blood No Growth after 72 hours Assessment and Plan Assessment: Impression Present on admission right lower quadrant pain suspect due to an acute diverticulitis with computed tomography scan abdomen and pelvis showing evidence of free intraperitoneal air Present on admission lower abdominal pain low-grade temp fever chills leukocytosis suspect due to acute diverticulitis meet SIRS criteria Present on admission right lower quadrant abdominal pain suspect due to moderate sigmoid diverticulitis as evident on a CAT scan of the abdomen pelvis Anxiety nonspecified Present on admission right lower quadrant abdominal pain due to Perforated sigmoid diverticulitis Postop October 23 Sigmoid colectomy with end colostomy, incidental appendectomy Postop febrile Plan Continue postop surgical care Keep nothing by mouth Pain control DVT and GI prophylaxis IV fluid hydration IV Zosyn and Flagyl as ordered Further surgical recommendations pending Use IS as directed Increase activity Epidural per anesthesia for pain control Continue recommendations per infectious disease for antibiotics The above impression and plan of care have been discussed and directed by signing physician. Camille Garcia nurse practitioner acting as scribe for signing physician. <Logan French - Last Filed: 10/24/18 13:16> Objective - Vital Signs Vital signs: Vital Signs Temp 100.5 F H 10/24/18 06:14 Pulse 93 10/24/18 06:14 Resp 20 10/24/18 06:14 BP 110/60 10/24/18 06:14 Pulse Ox 94 L 10/24/18 06:14 Intake & Output 10/23/18 10/24/18 10/24/18 18:59 06:59 18:59 Intake Total 1700 658 Output Total 100 400 Balance 1600 258 Intake: IV 1700 658 Dextrose 5%-0.45% NaCl 1, 150 000 ml @ 150 mls/hr IV . Q6H40M [facility] Rx#:[id number] Output: Urine 50 400 Estimated Blood Loss 50 Other: Voiding Method Indwelling Catheter Indwelling Catheter # Voids 1 - Labs CBC & Chem 7: 10/24/18 09:13 10/24/18 09:13 Labs: Abnormal Lab Results - Last 24 Hours (Table) 10/24/18 10/24/18 Range/Units 09:13 09:13 WBC 16.7 H (3.8-10.6) k/uL Neutrophils # 14.2 H (1.3-7.7) k/uL Glucose 116 H (74-99) mg/dL Calcium 8.3 L (8.4-10.2) mg/dL Microbiology - Last 24 Hours (Table) 10/24/18 00:05 Urine Culture - Preliminary Urine,Catheterized 10/22/18 20:53 Blood Culture - Preliminary Blood No Growth after 24 hours 10/22/18 21:03 Blood Culture - Preliminary Blood No Growth after 24 hours 10/20/18 18:50 Blood Culture - Preliminary Blood No Growth after 72 hours Assessment and Plan Assessment: As above. Patient says she did pretty well overnight. She was able to sleep. This morning she said after she ambulated she had more incisional pain. She is requesting her pain medication be increased. Ostomy remains pink. No function. Small amount of serosanguineous drainage from the dressings. Significant fevers last night although better today. White blood cell count went up somewhat to 16. (1) Diverticulitis Current Visit: Yes Status: Acute Code(s): K57.92 - DVTRCLI OF INTEST, PART UNSP, W/O PERF OR ABSCESS W/O BLEED SNOMED Code(s): 988875547
[2018-10-24] MEDS: MULTIVITAMINS, THERA 1 EACH TAB PO SCH (11:24)
[2018-10-24] MEDS: ALPRAZolam 0.25 MG TAB PO PRN ×2 (11:25→20:31)
[2018-10-24] MEDS: SIMETHICONE 40 MG/0.6 ML DROPS 2,000 MG/30 ML BOTTLE PO PRN (11:26)
--- NOTE | 2018-10-24 17:54 | PN ---
PROGRESS NOTE DATE OF SERVICE 10/24/2018 This 48-year-old woman who was admitted with acute severe diverticulitis and perforation, diverticular abscess, is being closely monitored. Dr. French performed exploratory laparotomy as well as sigmoid colectomy and end colostomy and incidental appendectomy yesterday. The patient is complaining of severe pain. Patient is on epidural at this time. No chest pain. No palpitations. No fever. PHYSICAL EXAMINATION: Alert and oriented x3. Pulse is 94, blood pressure 132/73, respiration 16, temperature 98.5, pulse ox 92% on room air. HEENT: Conjunctivae normal. NECK: No jugular venous distention. CARDIOVASCULAR SYSTEM: S1, S2 muffled. RESPIRATORY SYSTEM: Breath sounds diminished at the bases. A few rhonchi. No crackles. ABDOMEN: Soft. Status post surgery. LEGS: No edema. No swelling. NERVOUS SYSTEM: No focal deficit. LABS: WBC 16.7. ASSESSMENT: 1. Acute severe diverticulitis with perforation with diverticular abscess, status post sigmoid colectomy with end colostomy and incidental appendectomy for perforated sigmoid diverticulitis. 2. Systemic inflammatory response syndrome, present on admission. 3. Increased white count. 4. Diabetes mellitus, type 2. 5. History of menorrhagia. 6. History of tonsillectomy. 7. History of anxiety, depression. 8. History of nicotine dependence. 9. FULL CODE. RECOMMENDATIONS AND DISCUSSION: I recommend to continue current medication, continue the monitoring, symptomatic treatment. Otherwise at this time we will continue with IV antibiotics, pain medications. Guarded prognosis because of multiple complex medical issues. Further recommendations to follow. MMODL / IJN: [id number] /
[2018-10-24] MEDS: HYDROmorphone 1 MG/ML 1 ML SYRINGE IVP PRN ×2 (18:00→21:11)
[2018-10-24] MEDS: ROPIVACAINE 400 MG, fentaNYL (PF) 1,250 MCG in SODIUM CHLORIDE 0.9% 145 ML EPIDURAL PRN (19:29)
[2018-10-24] MEDS ORDERED: ACETAMINOPHEN IV (For NPO) 1,000 MG in EMPTY BAG 1 BAG IVPB PRN (20:29)
[2018-10-25] MEDS: AMPICILLIN-SULBACTAM 3 GM in SODIUM CHLORIDE 0.9% 100 ML IVPB SCH ×4 (01:00→17:04)
[2018-10-25] MEDS: DEXTROSE 5%-0.45% NACL 1,000 ML IV SCH ×3 (05:15→21:35)
[2018-10-25] MEDS: NICOTINE 21MG/24HR PATCH TRANSDERM SCH (07:28)
[2018-10-25] MEDS: metroNIDAZOLE-NS PMX 500 MG in SALINE 1 100ML.BAG IVPB SCH ×2 (07:33→15:50)
[2018-10-25] MEDS: HEPARIN SODIUM,PORCINE 5,000 UNIT/ML 1 ML VIAL SQ SCH ×2 (07:33→21:35)
[2018-10-25] MEDS: PANTOPRAZOLE 40 MG/10 ML VIAL IV SCH (07:34)
--- NOTE | 2018-10-25 07:57 | CONS ---
CONSULTATION DATE OF SERVICE: 10/24/2018. REASON FOR CONSULTATION: Fever and sepsis. HISTORY OF PRESENT ILLNESS: The patient is a 48-year-old female who presented to the [facility] ER on 10/20/2018 with the chief complaints of abdominal pain. Her pain has been going on for about 3 days. Before she presented to the hospital pain has been mostly in the lower abdominal area, mostly on the left side, described it to more of sharp in nature about 7 to 8 out of 10 on presentation. Did have some associated nausea, but no vomiting. No diarrhea or constipation. The patient on presentation to the hospital did have a fever of 101.7 degrees Fahrenheit. The patient did have elevated white count. The patient did have CT of abdomen and pelvis, which did show marked sigmoid diverticulitis with microperforation. The patient subsequently was admitted to the hospital was started on Zosyn, a clear liquid diet of the next few days. The patient's abdominal pain continued to get worse with associated nausea and vomiting and persistent fever. Repeat CAT scan was performed yesterday morning, which did show evidence of intraperitoneal air and perforated bowel. The patient was taken to the OR in the evening by Dr. French. Patient is status post laparotomy with diverting colostomy and incidental appendectomy. With persistent fever and elevated white count, infectious Disease was consulted last evening for further recommendation regarding antibiotic. Repeat blood cultures were ordered. Antibiotic will be adjusted. The patient was able to this afternoon, but the patient continued complaining of pain in the lower abdominal area almost 10 out of 10, which is sharp in nature in the lower abdominal area with associated nausea, no vomiting. Denies having any chest pain. No shortness of breath or cough. REVIEW OF SYSTEMS: CONSTITUTIONAL: Positive for weakness along with the fever. EYES: No complaint. ENT: No complaint. RESPIRATORY: No complaint. CARDIOVASCULAR: No complaint. GENITOURINARY: No complaint. GASTROINTESTINAL: As per HPI. MUSCULOSKELETAL: No complaint. INTEGUMENTARY: No complaint. PSYCHOLOGICAL: No complaint. ENDOCRINE: No complaint. NEUROLOGIC: No complaint. PAST MEDICAL HISTORY: Diabetes mellitus, pilonidal cyst. PAST SURGICAL HISTORY: , tonsillectomy, tubal ligation, bilateral cataract surgery, pilonidal cyst removal, tummy tuck, uterine ablation. SOCIAL HISTORY: Current everyday smoker, smokes about a 1/2 a pack a day since age of 11. Occasionally drinks. No drug use. FAMILY HISTORY: No pertinent findings noticed. ALLERGIES: No known drug allergies. MEDICATION: Medications include the patient is currently on Tylenol, Girard, Xanax, Benadryl, heparin, Dilaudid, Flagyl 500 q.8, nicotine patch, Zosyn 3.375 grams q.8 hour and Restoril. PHYSICAL EXAMINATION: On examination, blood pressure 132/73 with a pulse of 84, temperature 98.5, T-max is 101. She is 92% on room air. General description is a middle aged female lying in bed in no distress. No tachypnea or accessory muscle of respiration use. HEENT examination shows no pallor or scleral icterus. Oral mucous membrane is dry. No pharyngeal erythema or thrush. NECK: Trachea central. No thyromegaly. LUNGS: Unlabored breathing with decreased breath sounds at the bases. No wheeze or crackle. HEART: S1, S2. Regular rate and rhythm. ABDOMEN: Soft, mildly distended and tender in lower quadrant area. No organomegaly. EXTREMITIES: No edema of feet. SKIN EXAMINATION: No rash or mass palpable. NEUROLOGICAL: Patient is awake, alert, oriented x3. Mood and affect normal. LABS: Hemoglobin 11.9, white count 16.7 with BUN of 8, creatinine 0.95. Electrolytes have been normal. Blood culture obtained currently pending. Urine was Streptococcus agalactiae. DIAGNOSTIC IMPRESSION AND PLAN: Patient with sepsis in this patient who presented to the hospital with abdominal pain of about 3 days duration in a patient who did have evidence of severe diverticulitis with microperforation. Subsequently did have a complete perforation of the bowel for which the patient had been taken to the OR. The patient is status post laparotomy and diverting colostomy. cultures though likely organism gram negative both aerobes and anaerobes in the patient who had been exposed outpatient setting could be sensitive pathogen. PLAN: 1. We will transition antibiotic therapy to Unasyn 3 grams q.6 hours and continue with the Flagyl. 2. IV fluid. 3. Depending on clinical response as well as cultures, will adjust the medication further if needed. Thank you for this consultation. Will follow this patient along with you. MMODL / IJN: [id number] /
[2018-10-25 10:07] LABS: Anion Gap 8 mmol/L; Blood Urea Nitrogen 6 mg/dL (7-17); Calcium 8.4 mg/dL (8.4-10.2); Carbon Dioxide 26 mmol/L (22-30); Chloride 105 mmol/L (98-107); Glucose 121 mg/dL (74-99); Potassium 3.7 mmol/L (3.5-5.1); Sodium 139 mmol/L (137-145)
[2018-10-25 10:13] LABS: Basophils % (A) 0 %; Eosinophils # (A) 0.5 k/uL (0-0.7); Eosinophils % (A) 4 %; HCT 36.6 % (34.0-46.0); HGB 11.7 gm/dL (11.4-16.0); Lymphocytes # (A) 1.5 k/uL (1.0-4.8); Lymphocytes % (A) 11 %; MCH 30.9 pg (25.0-35.0); MCV 96.7 fL (80.0-100.0); Mean Platelet Volume 6.4; Monocytes # (A) 0.5 k/uL (0-1.0); Monocytes % (A) 4 %; Neutrophils % (A) 80 %; Platelet Count 373 k/uL (150-450); RBC 3.78 m/uL (3.80-5.40); RDW 12.6 % (11.5-15.5); WBC 13.8 k/uL (3.8-10.6)
[2018-10-25 10:24] VITALS: BMI 34.3
--- NOTE | 2018-10-25 10:51 | P.PN ---
<Camille Garcia - Last Filed: 10/25/18 10:56> Subjective Progress Note Date: 10/25/18 48-year-old female seen in a postop surgical visit epidural in place anesthesia at the bedside did discuss with the patient the plan for the epidural which will be due tapering likely to be removed within 24 hours. Patient reports with any movement has "increased abdominal pain" becomes teary- eyed states she cannot tolerate the pain. Ostomy right lower quadrant stoma pink scant amount of serous drainage in the bag. Tolerating ice chips states belching reports no nausea vomiting asking for diet to be increased a few hypoactive bowel tones surgical dressing dry Patient states she has been up ambulating in the herrera once this morning Temp this morning 100.2 white count 13.8 this morning electrolytes within normal limits Postop October 23 Sigmoid colectomy with end colostomy, incidental appendectomy for perforated sigmoid diverticulitis Objective - Vital Signs Vital signs: Vital Signs Temp 100.2 F H 10/25/18 07:00 Pulse 89 10/25/18 07:00 Resp 20 10/25/18 07:00 BP 119/68 10/25/18 07:00 Pulse Ox 92 L 10/25/18 07:05 Intake & Output 10/24/18 10/25/18 10/25/18 18:59 06:59 18:59 Intake Total 76 Output Total 250 Balance -174 Weight 88 kg Intake: Intake, IV Titration 56 Amount Ropivacaine 400 mg 56 fentaNYL (PF) 1,250 mcg In Sodium Chloride 0.9% 145 ml @ Per Protocol EPIDURAL .Q0M PRN Rx#: [id number] Oral 20 Output: Urine 250 Other: Voiding Method Indwelling Catheter Indwelling Catheter - Exam Physical exam 48-year-old female currently just returned from walking in the hallway resting in bed easily teary-eyed again this morning states feels overly anxious and overwhelmed dealing with the ostomy concerned about the pain medication not being effective for pain control with any movement patient states has pain currently has an epidural in place per anesthesia's recommendations Lungs decreased posterior at the bases needs encouragement to use IS sats 92 on room air Heart S1-S2 audible regular denying chest pain Abdomen surgical tenderness appropriate soft not distended indwelling Saunders catheter in place taking ice chips tolerating no nausea vomiting reports hungry sensation belching not passing gas no stool from ostomy stoma pink surgical dressing dry few hypoactive bowel tones Extremities no edema noted - Labs CBC & Chem 7: 10/25/18 09:41 10/25/18 09:41 Labs: Abnormal Lab Results - Last 24 Hours (Table) 10/25/18 10/25/18 Range/Units 09:41 09:41 WBC 13.8 H (3.8-10.6) k/uL RBC 3.78 L (3.80-5.40) m/uL Neutrophils # 11.0 H (1.3-7.7) k/uL BUN 6 L (7-17) mg/dL Glucose 121 H (74-99) mg/dL Microbiology - Last 24 Hours (Table) 10/23/18 23:59 Blood Culture - Preliminary Blood No Growth after 24 hours 10/23/18 23:45 Blood Culture - Preliminary Blood No Growth after 24 hours 10/22/18 20:53 Blood Culture - Preliminary Blood No Growth after 48 hours 10/22/18 21:03 Blood Culture - Preliminary Blood No Growth after 48 hours 10/20/18 18:50 Blood Culture - Preliminary Blood No Growth after 96 hours 10/24/18 00:05 Urine Culture - Preliminary Urine,Catheterized Assessment and Plan Assessment: Impression Present on admission right lower quadrant pain suspect due to an acute diverticulitis with computed tomography scan abdomen and pelvis showing evidence of free intraperitoneal air Present on admission lower abdominal pain low-grade temp fever chills leukocytosis suspect due to acute diverticulitis meet SIRS criteria Present on admission right lower quadrant abdominal pain suspect due to moderate sigmoid diverticulitis as evident on a CAT scan of the abdomen pelvis Anxiety nonspecified Present on admission right lower quadrant abdominal pain due to Perforated sigmoid diverticulitis Postop October 23 Sigmoid colectomy with end colostomy, incidental appendectomy Postop febrile Plan Start ostomy teaching per ostomy nurse Continue postop surgical care Keep nothing by mouth except ice chips Pain control DVT and GI prophylaxis IV fluid hydration IV Unasyn and Flagyl as ordered Further surgical recommendations pending Use IS as directed Increase activity Epidural per anesthesia for pain control Continue recommendations per infectious disease for antibiotics The above impression and plan of care have been discussed and directed by signing physician. Camille Garcia nurse practitioner acting as scribe for signing physician. <Logan French - Last Filed: 10/25/18 12:48> Objective - Vital Signs Vital signs: Vital Signs Temp 97.6 F 10/25/18 09:25 Pulse 89 10/25/18 07:00 Resp 20 10/25/18 07:00 BP 119/68 10/25/18 07:00 Pulse Ox 95 10/25/18 09:25 Intake & Output 10/24/18 10/25/18 10/25/18 18:59 06:59 18:59 Intake Total 76 Output Total 250 Balance -174 Weight 88 kg Intake: Intake, IV Titration 56 Amount Ropivacaine 400 mg 56 fentaNYL (PF) 1,250 mcg In Sodium Chloride 0.9% 145 ml @ Per Protocol EPIDURAL .Q0M PRN Rx#: [id number] Oral 20 Output: Urine 250 Other: Voiding Method Indwelling Catheter Indwelling Catheter Indwelling Catheter - Labs CBC & Chem 7: 10/25/18 09:41 10/25/18 09:41 Labs: Abnormal Lab Results - Last 24 Hours (Table) 10/25/18 10/25/18 Range/Units 09:41 09:41 WBC 13.8 H (3.8-10.6) k/uL RBC 3.78 L (3.80-5.40) m/uL Neutrophils # 11.0 H (1.3-7.7) k/uL BUN 6 L (7-17) mg/dL Glucose 121 H (74-99) mg/dL Microbiology - Last 24 Hours (Table) 10/24/18 00:05 Urine Culture - Final Urine,Catheterized 10/23/18 23:59 Blood Culture - Preliminary Blood No Growth after 24 hours 10/23/18 23:45 Blood Culture - Preliminary Blood No Growth after 24 hours 10/22/18 20:53 Blood Culture - Preliminary Blood No Growth after 48 hours 10/22/18 21:03 Blood Culture - Preliminary Blood No Growth after 48 hours 10/20/18 18:50 Blood Culture - Preliminary Blood No Growth after 96 hours Assessment and Plan Assessment: Patient doing better today. She is having some flatus. Pain seems improved. We'll advance to clear liquids. Keep epidural for 1 more day. Ambulate. Ostomy nurse to evaluate later today. (1) Diverticulitis Current Visit: Yes Status: Acute Code(s): K57.92 - DVTRCLI OF INTEST, PART UNSP, W/O PERF OR ABSCESS W/O BLEED SNOMED Code(s): 718735551
[2018-10-25] MEDS: MULTIVITAMINS, THERA 1 EACH TAB PO SCH (12:19)
--- NOTE | 2018-10-25 12:56 | P.PN ---
Subjective This is a pleasant 48 years old female with past medical history of diabetes mellitus, section, who presents because of abdominal pain and found to have perforated diverticulitis with an abscess as well as urinary tract infection. She is a status post sigmoid colectomy with end colostomy, incidental appendectomy for perforative diverticulitis. Patient states that she has little abdominal pain is 1-2/10 in the lower abdomen. Her pain is worse with movement. Wound looks excellent and the closed end colostomy back showing some little of brown fluid. Patient still has a Saunders. She has a fever today of 100.2. WBC is trending down from 16.7 to 13.8 K. BMP was unremarkable. Her urine culture was positive for strep agalactiae. Patient currently on Flagyl and Zosyn and IV fluids. With pain management she is on a epidural analgesics Objective - Vital Signs Vital signs: Vital Signs Temp 97.6 F 10/25/18 09:25 Pulse 89 10/25/18 07:00 Resp 20 10/25/18 07:00 BP 119/68 10/25/18 07:00 Pulse Ox 95 10/25/18 09:25 Intake & Output 10/24/18 10/25/18 10/25/18 18:59 06:59 18:59 Intake Total 76 Output Total 250 Balance -174 Weight 88 kg Intake: Intake, IV Titration 56 Amount Ropivacaine 400 mg 56 fentaNYL (PF) 1,250 mcg In Sodium Chloride 0.9% 145 ml @ Per Protocol EPIDURAL .Q0M PRN Rx#: [id number] Oral 20 Output: Urine 250 Other: Voiding Method Indwelling Catheter Indwelling Catheter Indwelling Catheter - Exam GENERAL: The patient is alert and oriented x3, not in any acute distress. Well developed, well nourished. HEENT: Pupils are round and equally reacting to light. EOMI. No scleral icterus. No conjunctival pallor. Normocephalic, atraumatic. No pharyngeal erythema. No thyromegaly. CARDIOVASCULAR: S1 and S2 present. No murmurs, rubs, or gallops. PULMONARY: Chest is clear to auscultation, no wheezing or crackles. ABDOMEN: Soft, nontender, nondistended, normoactive bowel sounds. No palpable organomegaly. Midline incision closed and healing. Left side colostomy bag is in a Place MUSCULOSKELETAL: No joint swelling or deformity. EXTREMITIES: No cyanosis, clubbing, or pedal edema. NEUROLOGICAL: Gross neurological examination did not reveal any focal deficits. SKIN: No rashes. - Labs CBC & Chem 7: 10/25/18 09:41 10/25/18 09:41 Labs: Abnormal Lab Results - Last 24 Hours (Table) 10/25/18 10/25/18 Range/Units 09:41 09:41 WBC 13.8 H (3.8-10.6) k/uL RBC 3.78 L (3.80-5.40) m/uL Neutrophils # 11.0 H (1.3-7.7) k/uL BUN 6 L (7-17) mg/dL Glucose 121 H (74-99) mg/dL Microbiology - Last 24 Hours (Table) 10/24/18 00:05 Urine Culture - Final Urine,Catheterized 10/23/18 23:59 Blood Culture - Preliminary Blood No Growth after 24 hours 10/23/18 23:45 Blood Culture - Preliminary Blood No Growth after 24 hours 10/22/18 20:53 Blood Culture - Preliminary Blood No Growth after 48 hours 10/22/18 21:03 Blood Culture - Preliminary Blood No Growth after 48 hours 10/20/18 18:50 Blood Culture - Preliminary Blood No Growth after 96 hours Assessment and Plan Assessment: Perforated diverticulitis with abscess Status post sigmoid colectomy with end colostomy, incidental appendectomy for perforative diverticulitis Diabetes mellitus, type tone History of menorrhagia History of tonsillectomy History of anxiety/depressive History of nicotine dependence Plan: This is a pleasant 48 years old female presents with diverticulitis status post surgery for perforated viscus. Surgery team are following the patient. Continue with IV fluids and antibiotics.Labs and medication were reviewed.. Continue same treatment. Continue with symptomatic treatment. Resume home medication. Monitor lytes and vitals. DVT and GI prophylaxis. Further recommendations of the clinical course of the patient DVT prophylaxis: Subcutaneous heparin GI Prophylaxis: Protonix Prognosis is guarded
--- NOTE | 2018-10-25 14:16 | P.PN ---
Progress Note - Text 10/25 744am 48-year-old female status post exploratory lap. Patient has an epidural catheter for postop pain control running at 10 mL an hour with a VAS of 2. Patient has been ambulating no motor or sensory deficits. Plan to continue to epidural infusion for 1 more day
--- NOTE | 2018-10-25 15:18 | CDI ---
Last Revision, October 2017 Documentation Clarification Form Date: 10/25/2018 3:05:33 PM From: Gay Hensley, [facility], CCDS Admit Date: 10/20/2018 9:27:00 PM Patient Name: Nathalia Swanson Visit Number: [id number] Discharge Date: ATTENTION: The Clinical Documentation Specialists (CDI) and [facility] Coding Staff appreciate your assistance in clarifying documentation. Please respond to the clarification below the line at the bottom and electronically sign. The CDI & [facility] Coding staff will review the response and follow-up if needed. Please note: Queries are made part of the Legal Health Record. If you have any questions, please contact the author of this message via ITS. Ryan Suarez MD: Per the ED note 10/20: Meets sepsis criteria. Diagnosed with Sepsis & diverticulitis. Per the 10/24 ID consult 10/24: Reason for consult: Fever & sepsis. IMP: Patient with sepsis who presented with abdominal pain. Per the surgical PNs: POA lower abdominal pain, low grade temp, fever, chills, leukocytosis suspect due to acute diverticulitis meet SIRS criteria. History/Risk Factors: Diabetes, Menorrhagia, Fibroids, Anxiety & Depression Clinical Indicators: Presented to ED with abdominal pain, fever, chills, frequent urination. Procedure 10/23: Sigmoid colectomy with end colostomy, incidental appendectomy for Perforated sigmoid diverticulitis w/abscess. VS: T 98.4-101.7^, P 99, R 18, BP 136/61 - 99/60; PO 99 RA - 93 RA LAB: WBC 21.1^, Neut 17.2^, Lactic Acid (1.0). UA: cloudy, 1+ protein, 1+ ketones, Moderate blood, trace esterase. RAD: CT Abdomen & Pelvis: Moderate marked sigmoid diverticulitis. Treatment: IV toradol, IV Ms, IV Zofran, IV fluid bolus, IV fluid 100, IV Levaquin, IV Flagyl, IV Narcan, IV Zofran, IV fluid rate 60, IV Dilaudid. In your professional opinion, please clarify if these findings signify one of the following conditions, whether the condition is POA, and cause, if known: Sepsis ruled out Sepsis ruled in o If ruled in: please identify source & organism if known. Severe Sepsis Septic Shock Other, please specify Unable to determine Present on Admission: Yes or No pt with SIRS with fever and leukocytosis on admission , with sepsis secondary to abd diverticulitis and abscess. MTDD
[2018-10-25] MEDS ORDERED: diphenhydrAMINE 25 MG CAP PO PRN (15:20)
--- NOTE | 2018-10-25 20:24 | PN ---
PROGRESS NOTE DATE OF SERVICE: 10/25/2018 REASON FOR FOLLOWUP: Abdominal abscess from ruptured diverticulitis. INTERVAL HISTORY: The patient is afebrile. She has been breathing comfortably. Denies significant chest pain or cough. Her abdominal pain has improved compared to yesterday. No nausea. No vomiting. PHYSICAL EXAMINATION: Blood pressure 177/77 with a pulse of 85, temperature 97.3. She is 92% on room air. General description is a middle-aged female lying in bed in no distress. RESPIRATORY SYSTEM: Unlabored breathing with decreased breath sounds in the bases. No wheeze. HEART: S1, S2. Regular rate and rhythm. ABDOMEN: Soft. Mildly distended. No guarding or rigidity. EXTREMITIES: No edema of the feet. LABS: Hemoglobin is 11.7, white count down to 13.8 with a BUN of 6, creatinine 0.74. DIAGNOSTIC IMPRESSION AND PLAN: Patient with abdominal abscess from a ruptured sigmoid diverticulitis, failing medical therapy, status post laparotomy with diverting colostomy. Plan at this time to keep the patient on Unasyn 3 grams q.6. She has been advised to use incentive spirometry to prevent development of any pneumonia. Continue with supportive care. MMODL / IJN: [id number] /
[2018-10-25] MEDS: ONDANSETRON 4 MG/2 ML VIAL IVP PRN (22:14)
[2018-10-25] MEDS: ROPIVACAINE 400 MG, fentaNYL (PF) 1,250 MCG in SODIUM CHLORIDE 0.9% 145 ML EPIDURAL PRN (22:15)
[2018-10-25] MEDS: HYDROmorphone 1 MG/ML 1 ML SYRINGE IVP PRN (22:52)
[2018-10-26] MEDS: metroNIDAZOLE-NS PMX 500 MG in SALINE 1 100ML.BAG IVPB SCH ×4 (00:07→23:32)
[2018-10-26] MEDS: AMPICILLIN-SULBACTAM 3 GM in SODIUM CHLORIDE 0.9% 100 ML IVPB SCH ×4 (00:07→19:43)
--- NOTE | 2018-10-26 06:45 | P.PN ---
Progress Note - Text Progress Note Date: 10/26/18 48 yo lety s/p Exploratory Laparotomy. POD #4. Patient had a good night sleep. No complaints overnight. VAS=0. No motor or sensory deficit. No nausea, vomiting or itching. Epidural running at 10 cc/hr. Plan is to D/c today.
[2018-10-26 08:19] LABS: Basophils % (A) 0 %; Eosinophils # (A) 0.7 k/uL (0-0.7); Eosinophils % (A) 8 %; HCT 35.4 % (34.0-46.0); HGB 11.3 gm/dL (11.4-16.0); Lymphocytes # (A) 1.3 k/uL (1.0-4.8); Lymphocytes % (A) 15 %; MCH 30.8 pg (25.0-35.0); MCHC 31.9 g/dL (31.0-37.0); MCV 96.7 fL (80.0-100.0); Mean Platelet Volume 6.3; Monocytes # (A) 0.4 k/uL (0-1.0); Monocytes % (A) 4 %; Neutrophils # (A) 6.4 k/uL (1.3-7.7); Neutrophils % (A) 70 %; Platelet Count 410 k/uL (150-450); RBC 3.66 m/uL (3.80-5.40); RDW 12.5 % (11.5-15.5); WBC 9.1 k/uL (3.8-10.6)
[2018-10-26 08:47] LABS: Anion Gap 5 mmol/L; Blood Urea Nitrogen 5 mg/dL (7-17); Calcium 8.2 mg/dL (8.4-10.2); Carbon Dioxide 29 mmol/L (22-30); Chloride 105 mmol/L (98-107); Glucose 98 mg/dL (74-99); Potassium 4.1 mmol/L (3.5-5.1); Sodium 139 mmol/L (137-145)
[2018-10-26] MEDS: HEPARIN SODIUM,PORCINE 5,000 UNIT/ML 1 ML VIAL SQ SCH ×2 (10:48→20:06)
[2018-10-26] MEDS: PANTOPRAZOLE 40 MG/10 ML VIAL IV SCH (10:50)
[2018-10-26] MEDS: NICOTINE 21MG/24HR PATCH TRANSDERM SCH (10:50)
[2018-10-26] MEDS: MULTIVITAMINS, THERA 1 EACH TAB PO SCH (10:51)
--- NOTE | 2018-10-26 11:10 | P.PN ---
Subjective This is a pleasant 48 years old female with past medical history of diabetes mellitus, section, who presents because of abdominal pain and found to have perforated diverticulitis with an abscess as well as urinary tract infection. She is a status post sigmoid colectomy with end colostomy, incidental appendectomy for perforative diverticulitis. Patient states that she has little abdominal pain is 1-2/10 in the lower abdomen. Her pain is worse with movement. Wound looks excellent and the closed end colostomy back showing some little of brown fluid. Patient still has a Saunders. She has a fever today of 100.2. WBC is trending down from 16.7 to 13.8 K. BMP was unremarkable. Her urine culture was positive for strep agalactiae. Patient currently on Flagyl and Zosyn and IV fluids. With pain management she is on a epidural analgesics 10/26/2018 Patient lower abdominal pain looks much control. She has an episode of pain at last night however today is significantly improved. Patient tolerating clear liquid diet however she could not take soft diet last night however she is willing to try today. Pain management team are planning to take off her epidural analgesia. No more fever since yesterday of 100.2. And WBC is back to normal at 9.1. Objective - Vital Signs Vital signs: Vital Signs Temp 98.7 F 10/26/18 07:00 Pulse 79 10/26/18 07:00 Resp 16 10/26/18 07:00 BP 112/72 10/26/18 07:00 Pulse Ox 92 L 10/26/18 07:00 Intake & Output 10/25/18 10/26/18 10/26/18 18:59 06:59 18:59 Intake Total 800 856.333 Output Total 530 Balance 800 326.333 Weight 88 kg Intake: IV 800 Ampicillin-Sulbactam 3 gm 100 In Sodium Chloride 0.9% 100 ml @ 200 mls/hr IVPB Q6HR [facility] Rx#:[id number] Dextrose 5%-0.45% NaCl 1, 600 000 ml @ 75 mls/hr IV . [id number] [facility] Rx#:[id number] metroNIDAZOLE-NS PMX 500 100 mg In Saline 1 100ml.bag @ 100 mls/hr IVPB Q8HR [facility] Rx#:[id number] Intake, IV Titration 856.333 Amount Dextrose 5%-0.45% NaCl 1, 600 000 ml @ 75 mls/hr IV . [id number] [facility] Rx#:[id number] Ropivacaine 400 mg 256.333 fentaNYL (PF) 1,250 mcg In Sodium Chloride 0.9% 145 ml @ Per Protocol EPIDURAL .Q0M PRN Rx#: [id number] Output: Urine 510 Emesis 20 Other: Voiding Method Indwelling Catheter Indwelling Catheter # Voids 1 - Exam GENERAL: The patient is alert and oriented x3, not in any acute distress. Well developed, well nourished. HEENT: Pupils are round and equally reacting to light. EOMI. No scleral icterus. No conjunctival pallor. Normocephalic, atraumatic. No pharyngeal erythema. No thyromegaly. CARDIOVASCULAR: S1 and S2 present. No murmurs, rubs, or gallops. PULMONARY: Chest is clear to auscultation, no wheezing or crackles. ABDOMEN: Soft, nontender, nondistended, normoactive bowel sounds. No palpable organomegaly. Midline incision closed and healing. Left side colostomy bag is in a Place MUSCULOSKELETAL: No joint swelling or deformity. EXTREMITIES: No cyanosis, clubbing, or pedal edema. NEUROLOGICAL: Gross neurological examination did not reveal any focal deficits. SKIN: No rashes. - Labs CBC & Chem 7: 10/26/18 07:50 10/26/18 07:50 Labs: Abnormal Lab Results - Last 24 Hours (Table) 10/26/18 10/26/18 Range/Units 07:50 07:50 RBC 3.66 L (3.80-5.40) m/uL Hgb 11.3 L (11.4-16.0) gm/dL BUN 5 L (7-17) mg/dL Calcium 8.2 L (8.4-10.2) mg/dL Microbiology - Last 24 Hours (Table) 10/23/18 23:59 Blood Culture - Preliminary Blood No Growth after 48 hours 10/23/18 23:45 Blood Culture - Preliminary Blood No Growth after 48 hours 10/22/18 20:53 Blood Culture - Preliminary Blood No Growth after 72 hours 10/22/18 21:03 Blood Culture - Preliminary Blood No Growth after 72 hours 10/20/18 18:50 Blood Culture - Preliminary Blood No Growth after 120 hours 10/24/18 00:05 Urine Culture - Final Urine,Catheterized Assessment and Plan Assessment: Perforated diverticulitis with abscess Status post sigmoid colectomy with end colostomy, incidental appendectomy for perforative diverticulitis Diabetes mellitus, type tone History of menorrhagia History of tonsillectomy History of anxiety/depressive History of nicotine dependence Plan: This is a pleasant 48 years old female presents with diverticulitis status post surgery for perforated viscus. Surgery team are following the patient. Continue with IV fluids and antibiotics.Labs and medication were reviewed.. Continue same treatment. Continue with symptomatic treatment. Resume home medication. Monitor lytes and vitals. DVT and GI prophylaxis. Further recommendations of the clinical course of the patient DVT prophylaxis: Subcutaneous heparin GI Prophylaxis: Protonix Prognosis is guarded
[2018-10-26] MEDS: DEXTROSE 5%-0.45% NACL 1,000 ML IV SCH ×2 (11:32→22:47)
--- NOTE | 2018-10-26 16:06 | P.PN ---
Subjective Progress Note Date: 10/26/18 Principal diagnosis: Diverticulitis Patient doing well today. Her pain is improved. White blood cell count normal. She is afebrile at this time. Small amount of flatus. She did have episodes of nausea and vomiting last night. That is improved now. Objective - Vital Signs Vital signs: Vital Signs Temp 98.6 F 10/26/18 15:00 Pulse 74 10/26/18 15:00 Resp 22 10/26/18 15:00 BP 115/77 10/26/18 15:00 Pulse Ox 93 L 10/26/18 15:00 Intake & Output 10/25/18 10/26/18 10/26/18 18:59 06:59 18:59 Intake Total 800 856.333 Output Total 530 500 Balance 800 326.333 -500 Weight 88 kg Intake: IV 800 Ampicillin-Sulbactam 3 gm 100 In Sodium Chloride 0.9% 100 ml @ 200 mls/hr IVPB Q6HR [facility] Rx#:[id number] Dextrose 5%-0.45% NaCl 1, 600 000 ml @ 75 mls/hr IV . [id number] [facility] Rx#:[id number] metroNIDAZOLE-NS PMX 500 100 mg In Saline 1 100ml.bag @ 100 mls/hr IVPB Q8HR [facility] Rx#:[id number] Intake, IV Titration 856.333 Amount Dextrose 5%-0.45% NaCl 1, 600 000 ml @ 75 mls/hr IV . [id number] [facility] Rx#:[id number] Ropivacaine 400 mg 256.333 fentaNYL (PF) 1,250 mcg In Sodium Chloride 0.9% 145 ml @ Per Protocol EPIDURAL .Q0M [facility] Rx#: [id number] Output: Urine 510 500 Emesis 20 Other: Voiding Method Indwelling Catheter Indwelling Catheter # Voids 1 - Exam Abdomen: Soft, mild distention, incision clean, wounds clean, ostomy pink - Labs CBC & Chem 7: 10/26/18 07:50 10/26/18 07:50 Labs: Abnormal Lab Results - Last 24 Hours (Table) 10/26/18 10/26/18 Range/Units 07:50 07:50 RBC 3.66 L (3.80-5.40) m/uL Hgb 11.3 L (11.4-16.0) gm/dL BUN 5 L (7-17) mg/dL Calcium 8.2 L (8.4-10.2) mg/dL Microbiology - Last 24 Hours (Table) 10/23/18 23:59 Blood Culture - Preliminary Blood No Growth after 48 hours 10/23/18 23:45 Blood Culture - Preliminary Blood No Growth after 48 hours 10/22/18 20:53 Blood Culture - Preliminary Blood No Growth after 72 hours 10/22/18 21:03 Blood Culture - Preliminary Blood No Growth after 72 hours 10/20/18 18:50 Blood Culture - Preliminary Blood No Growth after 120 hours 10/24/18 00:05 Urine Culture - Final Urine,Catheterized Assessment and Plan (1) Diverticulitis Narrative/Plan: Continue clear liquids. Remove Saunders and epidural. Continue local wound care. Current Visit: Yes Status: Acute Code(s): K57.92 - DVTRCLI OF INTEST, PART UNSP, W/O PERF OR ABSCESS W/O BLEED SNOMED Code(s): 383936471
[2018-10-26] MEDS: KETOROLAC 30 MG/ML 1 ML VIAL IVP SCH ×2 (18:00→23:32)
[2018-10-26] MEDS: HYDROmorphone 1 MG/ML 1 ML SYRINGE IVP PRN ×2 (18:45→22:07)
[2018-10-26] MEDS: ONDANSETRON 4 MG/2 ML VIAL IVP PRN (20:06)
[2018-10-26] MEDS: HYDROcodone/APAP 5-325MG 1 EACH TAB PO PRN (20:06)
--- NOTE | 2018-10-26 22:44 | PN ---
PROGRESS NOTE DATE OF SERVICE: 10/26/2018 REASON FOR FOLLOWUP: Abdominal abscess from ruptured diverticulitis. INTERVAL HISTORY: The patient is afebrile. She has been breathing comfortably. Her abdominal pain is currently controlled. The patient denies having any nausea. No vomiting. No chest pain, shortness of breath or cough. PHYSICAL EXAMINATION: Blood pressure 133/80 with a pulse of 73, temperature 98.3. She is 93% on 2 L nasal cannula. General description is a middle-aged female lying in bed in no distress. RESPIRATORY SYSTEM: Unlabored breathing with decreased breath sounds in the bases. No wheeze. HEART: S1, S2. Regular rate and rhythm. ABDOMEN: Soft. No tenderness. LABS: Hemoglobin 11.3, white count 9.1. BUN of 5, creatinine 0.65. Blood culture has been negative. DIAGNOSTIC IMPRESSION AND PLAN: Patient with abdominal abscess from a perforated sigmoid diverticulitis, status post diverting colostomy. The patient seems to have shown clinical improvement on Unasyn, and that will be continued at this point. Hopefully transition to oral antibiotic on discharge. Continue with supportive care. MMODL / IJN: [id number] /
[2018-10-26] MEDS: ALPRAZolam 0.25 MG TAB PO PRN (22:47)
[2018-10-26] MEDS: SIMETHICONE 40 MG/0.6 ML DROPS 2,000 MG/30 ML BOTTLE PO PRN (23:55)
[2018-10-27] MEDS: AMPICILLIN-SULBACTAM 3 GM in SODIUM CHLORIDE 0.9% 100 ML IVPB SCH ×4 (01:19→18:07)
[2018-10-27] MEDS: HYDROmorphone 1 MG/ML 1 ML SYRINGE IVP PRN ×4 (01:20→12:49)
[2018-10-27] MEDS: KETOROLAC 30 MG/ML 1 ML VIAL IVP SCH ×4 (05:55→23:59)
[2018-10-27] MEDS: DEXTROSE 5%-0.45% NACL 1,000 ML IV SCH ×2 (05:56→23:59)
[2018-10-27 08:27] LABS: Basophils % (A) 0 %; Eosinophils # (A) 0.7 k/uL (0-0.7); Eosinophils % (A) 10 %; HCT 35.6 % (34.0-46.0); HGB 11.7 gm/dL (11.4-16.0); Lymphocytes # (A) 1.2 k/uL (1.0-4.8); Lymphocytes % (A) 18 %; MCH 31.4 pg (25.0-35.0); MCHC 32.7 g/dL (31.0-37.0); MCV 95.8 fL (80.0-100.0); Mean Platelet Volume 6.5; Monocytes # (A) 0.3 k/uL (0-1.0); Monocytes % (A) 4 %; Neutrophils # (A) 4.6 k/uL (1.3-7.7); Neutrophils % (A) 66 %; Platelet Count 411 k/uL (150-450); RBC 3.72 m/uL (3.80-5.40); RDW 12.7 % (11.5-15.5)
[2018-10-27] MEDS: PANTOPRAZOLE 40 MG/10 ML VIAL IV SCH (08:36)
[2018-10-27] MEDS: HEPARIN SODIUM,PORCINE 5,000 UNIT/ML 1 ML VIAL SQ SCH ×2 (08:36→21:19)
[2018-10-27] MEDS: HYDROcodone/APAP 5-325MG 1 EACH TAB PO PRN ×2 (08:36→16:48)
[2018-10-27] MEDS: NICOTINE 21MG/24HR PATCH TRANSDERM SCH (08:38)
[2018-10-27] MEDS: metroNIDAZOLE-NS PMX 500 MG in SALINE 1 100ML.BAG IVPB SCH ×2 (08:42→16:36)
[2018-10-27 08:45] LABS: Anion Gap 6 mmol/L; Blood Urea Nitrogen 7 mg/dL (7-17); Calcium 8.5 mg/dL (8.4-10.2); Carbon Dioxide 30 mmol/L (22-30); Chloride 103 mmol/L (98-107); Glucose 115 mg/dL (74-99); Potassium 4.3 mmol/L (3.5-5.1); Sodium 139 mmol/L (137-145)
--- NOTE | 2018-10-27 09:20 | P.PN ---
Subjective Progress Note Date: 10/27/18 Principal diagnosis: Diverticulitis Patient doing well today. He had another episode of spastic abdominal pain yesterday evening. That is resolved now. Passing flatus through ostomy. No fevers. White blood cell count normal. Tolerating small amount of clear liquids. Objective - Vital Signs Vital signs: Vital Signs Temp 97.7 F 10/27/18 07:10 Pulse 71 10/27/18 07:10 Resp 16 10/27/18 07:10 BP 102/66 10/27/18 07:10 Pulse Ox 93 L 10/27/18 07:10 Intake & Output 10/26/18 10/27/18 10/27/18 18:59 06:59 18:59 Intake Total 1400 Output Total 500 450 Balance -500 950 Intake: IV 800 Ampicillin-Sulbactam 3 gm 100 In Sodium Chloride 0.9% 100 ml @ 200 mls/hr IVPB Q6HR [facility] Rx#:[id number] Dextrose 5%-0.45% NaCl 1, 600 000 ml @ 75 mls/hr IV . [id number] [facility] Rx#:[id number] metroNIDAZOLE-NS PMX 500 100 mg In Saline 1 100ml.bag @ 100 mls/hr IVPB Q8HR [facility] Rx#:[id number] Intake, IV Titration 600 Amount Dextrose 5%-0.45% NaCl 1, 600 000 ml @ 75 mls/hr IV . [id number] [facility] Rx#:[id number] Output: Urine 500 450 Uretheral (Saunders) 250 Other: Voiding Method Indwelling Catheter Indwelling Catheter # Voids 1 - Exam Abdomen: Soft, minimal distention, mild tenderness, wounds clean, ostomy pink with flatus - Labs CBC & Chem 7: 10/27/18 07:47 10/27/18 07:47 Labs: Abnormal Lab Results - Last 24 Hours (Table) 10/27/18 10/27/18 Range/Units 07:47 07:47 RBC 3.72 L (3.80-5.40) m/uL Glucose 115 H (74-99) mg/dL Microbiology - Last 24 Hours (Table) 10/23/18 23:59 Blood Culture - Preliminary Blood No Growth after 72 hours 10/23/18 23:45 Blood Culture - Preliminary Blood No Growth after 72 hours 10/22/18 20:53 Blood Culture - Preliminary Blood No Growth after 96 hours 10/22/18 21:03 Blood Culture - Preliminary Blood No Growth after 96 hours 10/20/18 18:50 Blood Culture - Final Blood No Growth after 144 hours Assessment and Plan (1) Diverticulitis Narrative/Plan: Advance diet to full liquids. Continue antibiotics. Ambulate. Continue local wound care. Current Visit: Yes Status: Acute Code(s): K57.92 - DVTRCLI OF INTEST, PART UNSP, W/O PERF OR ABSCESS W/O BLEED SNOMED Code(s): 859015999
[2018-10-27] MEDS: ALPRAZolam 0.25 MG TAB PO PRN ×2 (10:03→21:30)
--- NOTE | 2018-10-27 13:06 | P.PN ---
Subjective This is a pleasant 48 years old female with past medical history of diabetes mellitus, section, who presents because of abdominal pain and found to have perforated diverticulitis with an abscess as well as urinary tract infection. She is a status post sigmoid colectomy with end colostomy, incidental appendectomy for perforative diverticulitis. Patient states that she has little abdominal pain is 1-2/10 in the lower abdomen. Her pain is worse with movement. Wound looks excellent and the closed end colostomy back showing some little of brown fluid. Patient still has a Saunders. She has a fever today of 100.2. WBC is trending down from 16.7 to 13.8 K. BMP was unremarkable. Her urine culture was positive for strep agalactiae. Patient currently on Flagyl and Zosyn and IV fluids. With pain management she is on a epidural analgesics 10/26/2018 Patient lower abdominal pain looks much control. She has an episode of pain at last night however today is significantly improved. Patient tolerating clear liquid diet however she could not take soft diet last night however she is willing to try today. Pain management team are planning to take off her epidural analgesia. No more fever since yesterday of 100.2. And WBC is back to normal at 9.1. 09/27/2018 Patient epidural analgesia has been discontinued today. The patient is managed to get out of bed. Patient seen and examined while she was sitting in the chair. She had some abdominal pain but looks controlled. Saunders was taken off. Then she is able to be as per patient and staff. No more nausea vomiting. No more fever over the last 48 hours. Blood pressure 102/66. Saturating 93% on room air. WBC is 7.0K. Rest of CBC and BMP was unremarkable. Sugar controlled. Surgery R following the patient and advancing the diet. Objective - Vital Signs Vital signs: Vital Signs Temp 97.7 F 10/27/18 07:10 Pulse 71 10/27/18 07:10 Resp 16 10/27/18 07:10 BP 102/66 10/27/18 07:10 Pulse Ox 93 L 10/27/18 07:10 Intake & Output 10/26/18 10/27/18 10/27/18 18:59 06:59 18:59 Intake Total 1400 Output Total 500 450 Balance -500 950 Weight 88 kg Intake: IV 800 Ampicillin-Sulbactam 3 gm 100 In Sodium Chloride 0.9% 100 ml @ 200 mls/hr IVPB Q6HR [facility] Rx#:[id number] Dextrose 5%-0.45% NaCl 1, 600 000 ml @ 75 mls/hr IV . [id number] [facility] Rx#:[id number] metroNIDAZOLE-NS PMX 500 100 mg In Saline 1 100ml.bag @ 100 mls/hr IVPB Q8HR [facility] Rx#:[id number] Intake, IV Titration 600 Amount Dextrose 5%-0.45% NaCl 1, 600 000 ml @ 75 mls/hr IV . [id number] [facility] Rx#:[id number] Output: Urine 500 450 Uretheral (Saunders) 250 Other: Voiding Method Indwelling Catheter Indwelling Catheter # Voids 1 - Exam GENERAL: The patient is alert and oriented x3, not in any acute distress. Well developed, well nourished. HEENT: Pupils are round and equally reacting to light. EOMI. No scleral icterus. No conjunctival pallor. Normocephalic, atraumatic. No pharyngeal erythema. No thyromegaly. CARDIOVASCULAR: S1 and S2 present. No murmurs, rubs, or gallops. PULMONARY: Chest is clear to auscultation, no wheezing or crackles. ABDOMEN: Soft, nontender, nondistended, normoactive bowel sounds. No palpable organomegaly. Midline incision closed and healing. Left side colostomy bag is in a Place MUSCULOSKELETAL: No joint swelling or deformity. EXTREMITIES: No cyanosis, clubbing, or pedal edema. NEUROLOGICAL: Gross neurological examination did not reveal any focal deficits. SKIN: No rashes. - Labs CBC & Chem 7: 10/27/18 07:47 10/27/18 07:47 Labs: Abnormal Lab Results - Last 24 Hours (Table) 10/27/18 10/27/18 Range/Units 07:47 07:47 RBC 3.72 L (3.80-5.40) m/uL Glucose 115 H (74-99) mg/dL Microbiology - Last 24 Hours (Table) 10/23/18 23:59 Blood Culture - Preliminary Blood No Growth after 72 hours 10/23/18 23:45 Blood Culture - Preliminary Blood No Growth after 72 hours 10/22/18 20:53 Blood Culture - Preliminary Blood No Growth after 96 hours 10/22/18 21:03 Blood Culture - Preliminary Blood No Growth after 96 hours 10/20/18 18:50 Blood Culture - Final Blood No Growth after 144 hours Assessment and Plan Assessment: Perforated diverticulitis with abscess Status post sigmoid colectomy with end colostomy, incidental appendectomy for perforative diverticulitis Diabetes mellitus, type tone History of menorrhagia History of tonsillectomy History of anxiety/depressive History of nicotine dependence Plan: This is a pleasant 48 years old female presents with diverticulitis status post surgery for perforated viscus. Surgery team are following the patient. Continue with IV fluids and antibiotics.Labs and medication were reviewed.. Continue same treatment. Continue with symptomatic treatment. Resume home medication. Monitor lytes and vitals. DVT and GI prophylaxis. Further recommendations of the clinical course of the patient DVT prophylaxis: Subcutaneous heparin GI Prophylaxis: Protonix Prognosis is guarded
[2018-10-27] MEDS: MULTIVITAMINS, THERA 1 EACH TAB PO SCH (16:49)
--- NOTE | 2018-10-27 23:14 | PN ---
PROGRESS NOTE DATE OF SERVICE: 10/27/2018. REASON FOR FOLLOWUP: Abdominal abscess from a ruptured peritoneal diverticulitis. INTERVAL HISTORY: The patient is currently afebrile. She is feeling better. Abdominal pain has improved. Denies any significant chest pain or shortness of breath. Occasional cough and no diarrhea. EXAMINATION: Blood pressure 190/82 with a pulse of 78, temperature 98.3. She is 93% on room air. General description is a middle aged female, lying in bed in no distress. Respiratory system: Unlabored breathing. Clear to auscultation anteriorly. Heart S1, S2. Regular rate and rhythm. Abdomen soft, mildly tender. No guarding, no rigidity. LABS: Hemoglobin 11.7, white count 7.0, BUN of 7, creatinine 0.71. DIAGNOSTIC IMPRESSION AND PLAN: Patient with secondary peritonitis from perforated sigmoid diverticulitis status post laparotomy with diverting colostomy. The patient at this time will continue on Unasyn, hopefully transition to oral antibiotics once his oral intake is improved. Continue supportive care. MMODL / IJN: [id number] /
[2018-10-28] MEDS: AMPICILLIN-SULBACTAM 3 GM in SODIUM CHLORIDE 0.9% 100 ML IVPB SCH ×5 (00:01→23:25)
[2018-10-28] MEDS: metroNIDAZOLE-NS PMX 500 MG in SALINE 1 100ML.BAG IVPB SCH ×3 (01:23→19:16)
[2018-10-28 08:05] LABS: Basophils # (A) 0.1 k/uL (0-0.2); Basophils % (A) 1 %; Eosinophils # (A) 0.4 k/uL (0-0.7); Eosinophils % (A) 4 %; HCT 35.4 % (34.0-46.0); HGB 11.4 gm/dL (11.4-16.0); Lymphocytes # (A) 1.2 k/uL (1.0-4.8); Lymphocytes % (A) 12 %; MCH 31.3 pg (25.0-35.0); MCHC 32.3 g/dL (31.0-37.0); MCV 96.9 fL (80.0-100.0); Mean Platelet Volume 6.6; Monocytes # (A) 0.3 k/uL (0-1.0); Monocytes % (A) 3 %; Neutrophils # (A) 7.9 k/uL (1.3-7.7); Neutrophils % (A) 78 %; Platelet Count 468 k/uL (150-450); RBC 3.65 m/uL (3.80-5.40); RDW 12.8 % (11.5-15.5); WBC 10.2 k/uL (3.8-10.6)
[2018-10-28 08:22] LABS: Anion Gap 5 mmol/L; Blood Urea Nitrogen 5 mg/dL (7-17); Calcium 8.5 mg/dL (8.4-10.2); Carbon Dioxide 27 mmol/L (22-30); Chloride 107 mmol/L (98-107); Glucose 119 mg/dL (74-99); Potassium 3.7 mmol/L (3.5-5.1); Sodium 139 mmol/L (137-145)
[2018-10-28] MEDS: NICOTINE 21MG/24HR PATCH TRANSDERM SCH (09:16)
[2018-10-28] MEDS: HEPARIN SODIUM,PORCINE 5,000 UNIT/ML 1 ML VIAL SQ SCH ×2 (09:22→21:15)
[2018-10-28] MEDS: PANTOPRAZOLE 40 MG TABLET PO SCH (09:22)
[2018-10-28] MEDS ORDERED: ALPRAZolam 0.5 MG TAB PO STA (09:50)
--- NOTE | 2018-10-28 09:51 | P.PN ---
Subjective This is a pleasant 48 years old female with past medical history of diabetes mellitus, section, who presents because of abdominal pain and found to have perforated diverticulitis with an abscess as well as urinary tract infection. She is a status post sigmoid colectomy with end colostomy, incidental appendectomy for perforative diverticulitis. Patient states that she has little abdominal pain is 1-2/10 in the lower abdomen. Her pain is worse with movement. Wound looks excellent and the closed end colostomy back showing some little of brown fluid. Patient still has a Saunders. She has a fever today of 100.2. WBC is trending down from 16.7 to 13.8 K. BMP was unremarkable. Her urine culture was positive for strep agalactiae. Patient currently on Flagyl and Zosyn and IV fluids. With pain management she is on a epidural analgesics 10/26/2018 Patient lower abdominal pain looks much control. She has an episode of pain at last night however today is significantly improved. Patient tolerating clear liquid diet however she could not take soft diet last night however she is willing to try today. Pain management team are planning to take off her epidural analgesia. No more fever since yesterday of 100.2. And WBC is back to normal at 9.1. 10/27/2018 Patient epidural analgesia has been discontinued today. The patient is managed to get out of bed. Patient seen and examined while she was sitting in the chair. She had some abdominal pain but looks controlled. Saunders was taken off. Then she is able to be as per patient and staff. No more nausea vomiting. No more fever over the last 48 hours. Blood pressure 102/66. Saturating 93% on room air. WBC is 7.0K. Rest of CBC and BMP was unremarkable. Sugar controlled. Surgery R following the patient and advancing the diet. 10/28/2018 Patient was sitting in the chair little distressed due to pain and she's feeling sad because she is away of home and because of her medical illness. She has little pain around the surgery site. Wound looks clean and closed and colostomy back is in a Place. Little nauseated though vomited we advancing diet but tolerance needs to be monitored. Patient states she is able to be with no problem after discontinuing the Saunders catheter. Surgery follow-up is appreciated. Objective - Vital Signs Vital signs: Vital Signs Temp 98.8 F 10/28/18 07:00 Pulse 77 12/08/18 07:00 Resp 16 10/28/18 07:00 BP 141/88 10/28/18 07:00 Pulse Ox 94 L 10/28/18 07:00 Intake & Output 10/27/18 10/28/18 10/28/18 18:59 06:59 18:59 Intake Total 600 1400 Output Total 1 150 Balance 600 1399 -150 Weight 88 kg Intake: IV 800 Ampicillin-Sulbactam 3 gm 100 In Sodium Chloride 0.9% 100 ml @ 200 mls/hr IVPB Q6HR [facility] Rx#:[id number] Dextrose 5%-0.45% NaCl 1, 600 000 ml @ 75 mls/hr IV . [id number] [facility] Rx#:[id number] metroNIDAZOLE-NS PMX 500 100 mg In Saline 1 100ml.bag @ 100 mls/hr IVPB Q8HR [facility] Rx#:[id number] Intake, IV Titration 600 600 Amount Dextrose 5%-0.45% NaCl 1, 600 600 000 ml @ 75 mls/hr IV . [id number] [facility] Rx#:[id number] Output: Urine 1 Emesis 150 Other: Voiding Method Toilet # Voids 2 2 1 - Exam GENERAL: The patient is alert and oriented x3, not in any acute distress. Well developed, well nourished. HEENT: Pupils are round and equally reacting to light. EOMI. No scleral icterus. No conjunctival pallor. Normocephalic, atraumatic. No pharyngeal erythema. No thyromegaly. CARDIOVASCULAR: S1 and S2 present. No murmurs, rubs, or gallops. PULMONARY: Chest is clear to auscultation, no wheezing or crackles. ABDOMEN: Soft, nontender, nondistended, normoactive bowel sounds. No palpable organomegaly. Midline incision closed and healing. Left side colostomy bag is in a Place MUSCULOSKELETAL: No joint swelling or deformity. EXTREMITIES: No cyanosis, clubbing, or pedal edema. NEUROLOGICAL: Gross neurological examination did not reveal any focal deficits. SKIN: No rashes. - Labs CBC & Chem 7: 10/28/18 07:36 10/28/18 07:36 Labs: Abnormal Lab Results - Last 24 Hours (Table) 10/28/18 10/28/18 Range/Units 07:36 07:36 RBC 3.65 L (3.80-5.40) m/uL Plt Count 468 H (150-450) k/uL Neutrophils # 7.9 H (1.3-7.7) k/uL BUN 5 L (7-17) mg/dL Glucose 119 H (74-99) mg/dL Microbiology - Last 24 Hours (Table) 10/23/18 23:59 Blood Culture - Preliminary Blood No Growth after 96 hours 10/23/18 23:45 Blood Culture - Preliminary Blood No Growth after 96 hours 10/22/18 20:53 Blood Culture - Preliminary Blood No Growth after 120 hours 10/22/18 21:03 Blood Culture - Preliminary Blood No Growth after 120 hours Assessment and Plan Assessment: Perforated diverticulitis with abscess Status post sigmoid colectomy with end colostomy, incidental appendectomy for perforative diverticulitis Diabetes mellitus, type tone History of menorrhagia History of tonsillectomy History of anxiety/depressive History of nicotine dependence Plan: This is a pleasant 48 years old female presents with diverticulitis status post surgery for perforated viscus. Surgery team are following the patient. Continue with IV fluids and antibiotics.Labs and medication were reviewed.. Continue same treatment. Continue with symptomatic treatment. Resume home medication. Monitor lytes and vitals. DVT and GI prophylaxis. Further recommendations of the clinical course of the patient DVT prophylaxis: Subcutaneous heparin GI Prophylaxis: Protonix Prognosis is guarded
--- NOTE | 2018-10-28 10:27 | P.PN ---
Progress Note - Text Progress Note Date: 10/28/18 The patient states she feels better. She is requesting a home. She is only been on full liquids. On exam her vital signs are stable. Her abdomen soft. Colostomy is functioning. Patient will have her diet advanced to regular diet today. She will be discharged home in the a.m.
[2018-10-28] MEDS: MULTIVITAMINS, THERA 1 EACH TAB PO SCH (13:01)
[2018-10-28] MEDS: HYDROcodone/APAP 5-325MG 1 EACH TAB PO PRN (18:11)
[2018-10-28] MEDS: ALPRAZolam 0.25 MG TAB PO PRN (18:12)
--- NOTE | 2018-10-28 23:40 | PN ---
PROGRESS NOTE DATE OF SERVICE: 10/28/2018. REASON FOR FOLLOWUP: Abdominal abscess from ruptured sigmoid diverticulitis. INTERVAL HISTORY: The patient is currently afebrile. She has been breathing comfortably. Denies having any chest pain, shortness of breath or cough. Abdominal pain is currently controlled. No nausea, vomiting. Did have output in the colostomy bag. EXAMINATION: Blood pressure 127/89 with a pulse of 74, temperature 98.4. She is 93% on room air. General description is a middle aged female lying in bed in no distress. Respiratory system unlabored breathing. Clear to auscultation anteriorly. Heart S1, S2. Regular rate and rhythm. Abdomen soft, no tenderness. Extremities: No edema of the feet. LABS: Hemoglobin 11.8, white count 10.2, BUN of 5, creatinine 0.67. Blood culture has been negative. DIAGNOSTIC IMPRESSION AND PLAN: Patient with abdominal abscess from a ruptured sigmoid diverticulitis, status post diverting colostomy. The patient at this time covered with the Unasyn that will continue over the weekend to finish therapy with oral Augmentin on discharge. Continue supportive care. MMODL / IJN: [id number] /
[2018-10-29] MEDS: metroNIDAZOLE-NS PMX 500 MG in SALINE 1 100ML.BAG IVPB SCH ×2 (00:25→07:54)
[2018-10-29] MEDS: AMPICILLIN-SULBACTAM 3 GM in SODIUM CHLORIDE 0.9% 100 ML IVPB SCH ×2 (06:08→12:24)
[2018-10-29 07:04] VITALS: BP 126/79; PULSE 80; RESP 17; TEMP 98.5
[2018-10-29] MEDS: PANTOPRAZOLE 40 MG TABLET PO SCH (07:04)
[2018-10-29] MEDS: HEPARIN SODIUM,PORCINE 5,000 UNIT/ML 1 ML VIAL SQ SCH (07:04)
[2018-10-29] MEDS: NICOTINE 21MG/24HR PATCH TRANSDERM SCH (07:04)
[2018-10-29] MEDS: MULTIVITAMINS, THERA 1 EACH TAB PO SCH (12:24)
--- NOTE | 2018-10-29 13:04 | P.PN ---
Progress Note - Text Progress Note Date: 10/29/18 The patient feels well. She has no significant pain. On exam her vital signs are stable. Her abdomen soft. Patient discharged home today. She'll follow-up Dr. French next week.
--- NOTE | 2018-10-29 16:47 | PN ---
PROGRESS NOTE DATE OF SERVICE: 10/29/2018. REASON FOR FOLLOWUP: Secondary peritonitis from perforated diverticulitis. INTERVAL HISTORY: The patient is afebrile. She is feeling much better today. She is breathing comfortably. Denies having any chest pain or shortness of breath. Cough. No abdominal pain. No nausea, vomiting. We were able to change her colostomy bag and is insisting on going home. EXAMINATION: Blood pressure 126/79 with a pulse of 80, temperature 98.5. She is 92% on room air. General description is a middle aged female, lying in bed in no distress. Respiratory system unlabored breathing. Clear to auscultation anteriorly. Heart is S1, S2. Regular rate and rhythm. Abdomen soft, no tenderness. LABORATORY DATA: No new labs have been obtained today. Her blood culture has been negative. DIAGNOSTIC IMPRESSION AND PLAN: Patient with secondary peritonitis from a perforated sigmoid diverticulitis, status post laparotomy and diverting colostomy. The patient has shown overall clinical improvement on Unasyn. Has received about 9 days of IV antibiotic therapy. Patient to transition to a short course of oral Augmentin 875 b.i.d. for another 10 days. Prescription had been sent to the pharmacy with a follow up in the office in a week. Continue supportive care. MMODL / IJN: [id number] /
--- NOTE | 2018-10-29 23:47 | P.DS ---
Providers Date of admission: 10/20/18 21:27 Attending physician: Shilpi Alegria Consults: 10/21/18 13:05 Consult Physician Routine Consulting Provider: Logan French Consult Reason/Comments: diverticulitis Do you want consulting provider notified?: Yes 10/23/18 22:45 Consult Physician Stat Consulting Provider: Phylicia Rapp Consult Reason/Comments: fever Do you want consulting provider notified?: Yes Primary care physician: Aiden Rush Hospital Course: Dx: Perforated diverticulitis with abscess Status post sigmoid colectomy with end colostomy, incidental appendectomy for perforative diverticulitis Diabetes mellitus, type tone History of menorrhagia History of tonsillectomy History of anxiety/depressive History of nicotine dependence hospital course: This is a pleasant 48 years old female with past medical history of diabetes mellitus, section, who presents because of abdominal pain and found to have perforated diverticulitis with an abscess as well as urinary tract infection. She is a status post sigmoid colectomy with end colostomy, incidental appendectomy for perforative diverticulitis.pt has been followed up by surgical team during her hospital stay. on the day of discharge pt abd pain has resolved and pt did not need pain medication or very minimal , she tolerated her diet very well , she is having normal bowel movement . no n/v. fever subsided and WBC back to normal . she is able to move around with ease and gait is normal. ID team cleared pt for DC and send augmentin script to the pharmacy. pt was cleared by surgical and ID teams for Discharge pt was eager to go home . Pt was instructed about the problems and management plan and Pt verbalized understanding and acceptance Pt is found stable and can be discharged to the community but needs follow up as outpt Discharge exam Gen.: Patient alert awake and oriented X 3, NOT IN DISTRESS CVS: s1-s2, RRR, no murmur CHEST:bilateral CTA, no wheezing or crepitation Abdomen: Soft, no tenderness, no distention, positive bowel sounds. wound is clean and is healing , kasi is in place. Extremities: No leg edema or induration time spent : more than 35 min Patient Condition at Discharge: Good Plan - Discharge Summary New Discharge Prescriptions: New Amoxic-Pot Clav 875-125Mg [Augmentin 875-125] 1 tab PO Q12HR #20 tablet Pantoprazole [Protonix] 40 mg PO DAILY #30 tablet. HYDROcodone/APAP 5-325MG [[place] 5-325] 1 tab PO DAILY PRN #5 tab PRN Reason: Pain Continue Vitamin D3 10,000 Iu Oral Solution 5,000 units PO DAILY Happy Pms 1 tab PO DAILY Cyanocobalamin (Vitamin B-12) [Vitamin B-12] 1,000 mcg PO DAILY Diflucan (Unknown Dose) 1 tab PO [place]ICK Calcium/Magnesium 1 tab PO DAILY Discontinued Licorice Root 1 tab PO DAILY Discharge Medication List Calcium/Magnesium 1 tab PO DAILY 10/20/18 [History] Cyanocobalamin (Vitamin B-12) [Vitamin B-12] 1,000 mcg PO DAILY 10/20/18 [ History] Diflucan (Unknown Dose) 1 tab PO M[place]ICK 10/20/18 [History] Happy Pms 1 tab PO DAILY 10/20/18 [History] Vitamin D3 10,000 Iu Oral Solution 5,000 units PO DAILY 10/20/18 [History] Amoxic-Pot Clav 875-125Mg [Augmentin 875-125] 1 tab PO Q12HR #20 tablet [Rx] HYDROcodone/APAP 5-325MG [[place] 5-325] 1 tab PO DAILY PRN #5 tab 10/29/18 [Rx] Pantoprazole [Protonix] 40 mg PO DAILY #30 tablet. 10/29/18 [Rx] Follow up Appointment(s)/Referral(s): Logan French MD [Medical Doctor] - 1 Week Aiden Rush III, MD [Primary Care Provider] - 1-2 days [facility], [NON-STAFF] - Phylicia Rapp MD [STAFF PHYSICIAN] - 1 Week Patient Instructions/Handouts: Diverticulitis (GEN), Colostomy Care (GEN) Activity/Diet/Wound Care/Special Instructions: Abdominal Incision Care: Colostomy Care for Discharge: Last Appliance change: 10.29.2018 Ostomy Supplies for Home from the Hospital: Convatec Flange #[id number] (three) moldable technology Convatec pouches with filter #[id number] No sting prep around stoma with each pouching system change (10) form hospital Ostomy powder Only to use when skin around the stoma is irritated Ms. Swanson also will be receiving sample ostomy appliances kacie Ayon by Tuesday to her home for home use including disposable pouches for 2 weeks down the line. Home Health Please set patient up in 3 weeks with Durable Medical Supplies for ostomy products as needed. Diet: Regular as tolerated Activity is limited till you see your doctor. No lifting over 5 pounds. No driving until cleared by Surgeon. Discharge Disposition: HOME WITH HOME HEALTH SERVICES
== END 2018-10-29 16:15 | disposition home health service (06) | DRG 853 ==
LOC: EC 17:23 → 4MS4W 21:27 → 4SSUR 10-25 18:19
PROVIDERS: ADMIT Hospitalist; ATTEND Hospitalist
PROC: 0D1N0Z4 Bypass Sigmoid Colon to Cutaneous, Open Approach (ICD-10-PCS; 2018-10-23)
PROC: 0DTJ0ZZ Resection of Appendix, Open Approach (ICD-10-PCS; 2018-10-23)
PROC: 0DTN0ZZ Resection of Sigmoid Colon, Open Approach (ICD-10-PCS; principal; 2018-10-23 12:10)
DX: A41.9 Sepsis, unspecified organism (principal); J80 Acute respiratory distress syndrome; K57.20 Diverticulitis of large intestine with perforation and abscess without bleeding; N39.0 Urinary tract infection, site not specified; D25.9 Leiomyoma of uterus, unspecified; N92.0 Excessive and frequent menstruation with regular cycle; E11.9 Type 2 diabetes mellitus without complications; K59.00 Constipation, unspecified; F17.210 Nicotine dependence, cigarettes, uncomplicated; Z71.6 Tobacco abuse counseling; Z79.899 Other long term (current) drug therapy; Z86.59 Personal history of other mental and behavioral disorders; Z98.891 History of uterine scar from previous surgery; Z98.51 Tubal ligation status; Z98.42 Cataract extraction status, left eye; Z98.41 Cataract extraction status, right eye
CPT/HCPCS: 36415; 71046; 74022; 74176; 74177; 80048; 80053; 81001; 81025; 82150; 83605; 83690; 85025; 85610; 85730; 86850; 86900; 86901; 86902; 87040; 87086; 87324; 88302; 88307; 96361; 96365; 96375; 96376; 99285

== ENCOUNTER → 2019-01-23 | Outpatient (CLI) | payer BC ==
--- NOTE | 2019-01-23 11:22 | MM ---
Reason for exam: screening (asymptomatic). Last mammogram was performed 3 years and 2 months ago. History: Took hormonal contraceptives for 15 years. Physical Findings: A clinical breast exam by your physician is recommended on an annual basis and results should be correlated with mammographic findings. MG Screening Mammo w CAD Bilateral CC and MLO view(s) were taken. Prior study comparison: November 10, 2015, bilateral MG 3d screening mammo w/cad. July 16, 2013, mammogram, performed at [facility]. The breast tissue is heterogeneously dense. This may lower the sensitivity of mammography. Finding: There is a 6 mm circumscribed round mass in the upper outer quadrant, middle position of the left breast. New finding and increase in size since November 10, 2015 and July 16, 2013. ASSESSMENT: Incomplete: need additional imaging evaluation, BI-RAD 0 RECOMMENDATION: Ultrasound of the left breast. [facility] will attempt to contact patient to return for ultrasound.
== END | disposition home or self-care (01) ==
LOC: RADMAMWWP 09:16
PROVIDERS: ATTEND Obstetrics & Gynecology
DX: Z12.31 Encounter for screening mammogram for malignant neoplasm of breast (principal)
CPT/HCPCS: 77067

== ENCOUNTER → 2019-02-02 | Outpatient (CLI) | payer BC ==
--- NOTE | 2019-02-02 09:47 | USB ---
Reason for exam: additional evaluation requested from abnormal screening. History: Took hormonal contraceptives for 15 years. Physical Findings: Nurse did not find any significant physical abnormalities on exam. US Breast Workup Limited LT Left limited breast ultrasound including focal area of concern, retroareolar and axilla demonstrates a 0.5 x 0.6 x 0.4cm oval, solid, vascular lesion at 2 o'clock, possible node. These results were verbally communicated with the patient and result sheet given to the patient on 02/02/19. ASSESSMENT: Benign, BI-RAD 2 RECOMMENDATION: Return to routine screening mammogram schedule for both breasts.
== END | disposition home or self-care (01) ==
LOC: RADUSWWP 07:26
PROVIDERS: ATTEND Obstetrics & Gynecology
DX: R92.8 Other abnormal and inconclusive findings on diagnostic imaging of breast (principal)

== ENCOUNTER → 2019-02-22 | Outpatient (CLI) | payer BC ==
[2019-02-22 11:58] LABS: Basophils # (A) 0.1 k/uL (0-0.2); Basophils % (A) 1 %; Eosinophils # (A) 0.2 k/uL (0-0.7); Eosinophils % (A) 2 %; HGB 15.1 gm/dL (11.4-16.0); Lymphocytes # (A) 3.1 k/uL (1.0-4.8); Lymphocytes % (A) 33 %; MCH 30.6 pg (25.0-35.0); MCHC 34.4 g/dL (31.0-37.0); Mean Platelet Volume 7.3; Monocytes # (A) 0.4 k/uL (0-1.0); Monocytes % (A) 4 %; Neutrophils # (A) 5.5 k/uL (1.3-7.7); Neutrophils % (A) 59 %; Platelet Count 298 k/uL (150-450); RBC 4.94 m/uL (3.80-5.40); RDW 14.8 % (11.5-15.5); WBC 9.5 k/uL (3.8-10.6)
[2019-02-22 12:19] LABS: Anion Gap 10 mmol/L; Blood Urea Nitrogen 13 mg/dL (7-17); Calcium 9.8 mg/dL (8.4-10.2); Carbon Dioxide 26 mmol/L (22-30); Chloride 103 mmol/L (98-107); Glucose 96 mg/dL (74-99); Potassium 4.8 mmol/L (3.5-5.1); Sodium 139 mmol/L (137-145)
== END | disposition home or self-care (01) ==
LOC: LABPAT 10:07
PROVIDERS: ATTEND Obstetrics & Gynecology
DX: Z01.818 Encounter for other preprocedural examination (principal); Z01.812 Encounter for preprocedural laboratory examination; K63.1 Perforation of intestine (nontraumatic)
CPT/HCPCS: 36415; 80048; 85025; 86850; 86870; 86880; 86900; 86901; 93005

== ENCOUNTER 2019-02-28 08:35 | Day surgery (SDC) | payer BC ==
[~2019-02-28 08:35] MED LIST: LACTATED RINGERS 1,000 ML IV SCH; LIDOCAINE 1% 20 ML VIAL (10MG/ML) FOR IV START INTRADERMA PRN
[2019-02-28 09:16] VITALS: TEMP 97.5
[2019-02-28 09:23] LABS: Glucose,Whole Blood 108 mg/dL (75-99)
[2019-02-28] MEDS ORDERED: PROPOFOL 10 MG/ML 20 ML VIAL IV ONE (09:52)
--- NOTE | 2019-02-28 10:20 | P.PCN ---
Date of Procedure: 02/28/19 Procedure(s) Performed: PREOPERATIVE DIAGNOSIS: Change in bowel habits, preoperative evaluation POSTOPERATIVE DIAGNOSIS: Diverticulosis mild PROCEDURE: Colonoscopy ANESTHESIA: MAC SURGEON: Logan French M.D. SPECIMENS: None ENDOSCOPIC PROCEDURE: The patient was placed on the endoscopy table in the left decubitus position. The Olympus colonoscope was inserted into the anus and passed under direct visualization to the distal sigmoid colon staple line. Mild diverticulosis was seen in the distal sigmoid colon. The rectum appeared normal. The scope was then advanced through the ostomy to the base of the cecum. The appendiceal orifice was visualized. From that point the scope was slowly withdrawn inspecting all surfaces carefully. There were no neoplastic inflammatory or polypoid lesions throughout the cecum, ascending, transverse, and descending colon. There is no significant diverticular disease seen throughout this section of colon. Patient had small hemorrhoids at the anus. The patient was taken to the recovery room in stable condition per anesthesia guidelines. RECOMMENDATIONS: Will proceed with colostomy reversal.
[2019-02-28 10:50] VITALS: BP 109/68; PULSE 74; RESP 18
== END 2019-02-28 11:11 | disposition home or self-care (01) ==
LOC: ORWHC2ENDO 08:35
PROVIDERS: ATTEND Surgery
DX: K57.30 Diverticulosis of large intestine without perforation or abscess without bleeding (principal); F17.210 Nicotine dependence, cigarettes, uncomplicated; E11.9 Type 2 diabetes mellitus without complications; F41.9 Anxiety disorder, unspecified; K64.9 Unspecified hemorrhoids; N85.2 Hypertrophy of uterus; F32.9 Major depressive disorder, single episode, unspecified; Z79.899 Other long term (current) drug therapy; Z43.3 Encounter for attention to colostomy; Z90.49 Acquired absence of other specified parts of digestive tract; Z91.048 Other nonmedicinal substance allergy status; Z80.0 Family history of malignant neoplasm of digestive organs
CPT/HCPCS: 45330; 81025; 44388; J2704

== ENCOUNTER 2019-03-01 05:28 | Inpatient (IN) | payer BC ==
[2019-02-19 12:35] VITALS: BMI 35.4
--- NOTE | 2019-02-28 17:01 | P.HPOB ---
History of Present Illness H&P Date: 02/28/19 Chief Complaint: Fibroid uterus Patient is a 48-year-old female with a known fibroid uterus. Ultrasounds have revealed a almost 5 cm uterus and possible dermoid. She was originally scheduled for a hysterectomy in 2017 but at that time was unable to move forward with the procedure. At that time she was originally planning to have a robotic hysterectomy. However prior to scheduling her hysterectomy second time, she had a perforated diverticulum for that required colostomy with Dr. French is at this time she is scheduled for a reversal of colostomy and will therefore plan total abdominal hysterectomy with possible bilateral salpingo-oophorectomy in conjunction with this procedure. We are converting to open due to significant scarring due to perforated diverticulum. Risks and benefits have been reviewed with the patient on several occasions and all questions are answered for her prior to proceeding to the operating room. Please see dictation for any further information regarding this. Past Medical History Past Medical History: Diabetes Mellitus Additional Past Medical History / Comment(s): ENLARGED UTERUS, FIBROIDS, OVARIAN CYSTS; ONGOING MENORRHAGIA. DIVERTICULITIS W/ BOWEL PERFORATION 10/20/18, HAS COLOSTOMY. ON RX FOR TOENAIL FUNGUS. History of Any Multi-Drug Resistant Organisms: None Reported Past Surgical History: Appendectomy, Bowel Resection, Section, Tonsillectomy, Tubal Ligation, Uterine Ablation Additional Past Surgical History / Comment(s): Tummy Tuck, meliton cataracts, PILONIDAL CYST X3 (LAST 12/26/15), HEMORRHOIDECTOMY (12/26/15). COLOSTOMY 10/23/18. Past Anesthesia/Blood Transfusion Reactions: Postoperative Nausea & Vomiting (PONV) Smoking Status: Current every day smoker - Past Family History Mother Family Medical History: No Reported History Medications and Allergies Home Medications Medication Instructions Recorded Confirmed Type Cyanocobalamin (Vitamin B-12) 1,000 mcg PO DAILY 10/20/18 02/28/19 History [Vitamin B-12] Vitamin D3 10,000 Iu Oral Solution 5,000 units PO DAILY 10/20/18 02/28/19 History Albuterol Inhaler [Ventolin Hfa 1 - 2 puff INHALATION RT-Q6H PRN 02/19/19 02/28/19 History Inhaler] Fluconazole [Diflucan] 150 mg PO MCCORMICK 02/19/19 02/28/19 History Fluticasone Nasal [place] [Flonase 2 spr EA NOSTRIL HS 02/19/19 02/28/19 History Nasal [place]] L. Rhamnosus GG/Inulin [Culturelle 1 each PO DAILY 02/19/19 02/28/19 History Probiotics Capsule] Multivitamins, Thera [Multivitamin 1 tab PO DAILY 02/19/19 02/28/19 History (formulary)] Allergies Allergy/AdvReac Type Severity Reaction Status Date / Time adhesive tape Allergy Rash/Hives Verified 02/28/19 08:54 Exam Osteopathic Statement: *. No significant issues noted on an osteopathic structural exam other than those noted in the History and Physical/Consult. - OBG Physical Exam Breast: both: normal (no masses) Abdomen: Colostomy Abdomen: bowel sounds normal, no diffuse tenderness, no bruit present, no guarding noted, no hepatomegaly, no splenomegaly, no mass Vulva: both: normal Vagina: normal moisture, no discharge Cervix: no lesion, no discharge Uterus: normal size, normal contour Adnexa: both: normal Anus/Rectum: normal perianal skin, no rectal mass, no hemorrhoids, heme negative
[~2019-03-01 05:28] MED LIST changes: +DEXAMETHASONE SOD PHOSPHATE 10 MG/ML 1 ML VIAL IV ONE; +HEPARIN SODIUM,PORCINE 5,000 UNIT/ML 1 ML VIAL SQ ONE; +HYDROmorphone 0.5 MG/0.5 ML SYRINGE IVP PRN; -LACTATED RINGERS 1,000 ML IV SCH; +MIDAZOLAM (PF) 2 MG/2 ML VIAL IV PRN; +ONDANSETRON 4 MG/2 ML VIAL IVP ONE; +ceFAZolin IN SWFI 2 GM/20 ML SYRINGE IVP ONE; +metroNIDAZOLE-NS PMX 500 MG in SALINE 1 100ML.BAG IVPB ONE
[2019-03-01] MEDS: LACTATED RINGERS 1,000 ML IV SCH (06:48)
[2019-03-01] MEDS ORDERED: SCOPOLAMINE 1.5MG/72HR PATCH TRANSDERM ONE (06:56)
[2019-03-01] MEDS: fentaNYL (PF) 50 MCG/ML 2 ML AMP IV PRN ×2 (07:04→07:10)
[2019-03-01] MEDS ORDERED: ALVIMOPAN 12 MG CAPSULE PO STA (07:21)
[2019-03-01] MEDS ORDERED: ALVIMOPAN 12 MG CAPSULE PO ONE (07:24)
[2019-03-01] MEDS ORDERED: NEOSTIGMINE 1 MG/ML 10 ML VIAL ONE (07:28)
[2019-03-01] MEDS ORDERED: PHENYLEPHRINE-0.9% NACL SYG 1 MG/10 ML SYRINGE ONE (07:28)
[2019-03-01] MEDS ORDERED: ALBUTEROL INHALER 60 PUFF/8 GM INHALER INHALATION ONE (07:28)
[2019-03-01] MEDS ORDERED: HEPARIN SODIUM,PORCINE 5,000 UNIT/ML 1 ML VIAL ONE (07:28)
[2019-03-01] MEDS ORDERED: ONDANSETRON 4 MG/2 ML VIAL ONE (07:28)
[2019-03-01] MEDS ORDERED: GLUCAGON 1 MG/ML VIAL ONE (07:28)
[2019-03-01] MEDS ORDERED: PROPOFOL 10 MG/ML 20 ML VIAL IV ONE (07:28)
[2019-03-01] MEDS ORDERED: fentaNYL (PF) 50 MCG/ML 2 ML AMP ONE (07:28)
[2019-03-01] MEDS ORDERED: MIDAZOLAM 2 MG/2 ML VIAL ONE (07:28)
[2019-03-01] MEDS ORDERED: SUCCINYLCHOLINE CHLORIDE 100 MG/5 ML SYR IV ONE (07:28)
[2019-03-01] MEDS ORDERED: LIDOCAINE 1% INJ 10MG/ML (20 ML MDV) ONE (07:28)
[2019-03-01] MEDS ORDERED: ROCURONIUM BROMIDE 10 MG/ML 10 ML VIAL IV ONE (07:28)
[2019-03-01] MEDS ORDERED: GLYCOPYRROLATE 0.2 MG/ML 2 ML VIAL ONE (07:28)
[2019-03-01] MEDS ORDERED: NALBUPHINE 10 MG/ML (1 ML AMP) IV PRN (07:36)
[2019-03-01] MEDS ORDERED: diphenhydrAMINE 50 MG/ML 1 ML VIAL IVP PRN (07:36)
[2019-03-01] MEDS ORDERED: NALOXONE 0.4 MG/ML 1 ML VIAL IV PRN (07:36)
[2019-03-01] MEDS ORDERED: LACTATED RINGERS 1,000 ML IV ONE ×5 (08:09→13:39)
--- NOTE | 2019-03-01 10:03 | P.OP ---
Date of Procedure: 03/01/19 Preoperative Diagnosis: Fibroid uterus Postoperative Diagnosis: Same Procedure(s) Performed: Total abdominal hysterectomy Anesthesia: GETA Surgeon: Ashok Copeland Supervisor Clam Bed #1: Logan French Estimated Blood Loss (ml): 50 Pathology: other (Uterus and cervix) Condition: stable Disposition: floor Operative Findings: Grossly enlarged fibroid uterus normal tubes and ovaries Filshie clips also removed during the procedure Description of Procedure: Patient was taken to the operating suite where a general anesthetic had been done be adequate. Dr. French had done a midline vertical incision due to reversal of colostomy done at the same time as are hysterectomy. All adhesions were lysed and the bowel was mobilized and packed out of the operative field. Bookwalter retractor was used to obtain excellent visualization and using 2 long Antoinette clamps uterus was elevated at the adnexal attachments once this was accomplished a clamps were clamped on the right and left side and sloping tube round ligament segment were cut and tied. Once this was accomplished but bladder flap was identified and entered with Metzenbaums mom scissors and this opening was extended laterally and bladder was bluntly dissected out of the operative field. Once this was accomplished he clamps were clamped over the blood vessels/uterine vasculature bilaterally tissues and cut and tied moving inferiorly then along the lateral borders the uterus staying close to the uterus the cardinal and uterosacral ligaments were clamped cut and tied in stepwise fashion until the vagina was entered. Once vagina was entered the corners were tied in these sutures were held. Uterus was then fully excised and sent to pathology for evaluation. With no bleeding noted in the pedicles 0 Vicryl suture was used to close the vaginal cuff in a running locking fashion. Pelvis was then irrigated no bleeding is noted across the pedicles or along the vaginal cuff therefore incidents removed from my standpoint sutures were cut and the remainder of the case is completed by Dr. Zarco please see his dictation regarding the remainder of his procedure.
[2019-03-01] MEDS ORDERED: diphenhydrAMINE 50 MG/ML 1 ML VIAL IVP ONE ×2 (13:20)
[2019-03-01] MEDS ORDERED: ONDANSETRON 4 MG/2 ML VIAL IVP PRN (13:53)
[2019-03-01 14:14] LABS: Glucose,Whole Blood 138 mg/dL (75-99)
[2019-03-01] MEDS: HEPARIN SODIUM,PORCINE 5,000 UNIT/ML 1 ML VIAL SQ SCH (14:53)
[2019-03-01 14:56] LABS: Basophils % (A) 0 %; Eosinophils # (A) 0.1 k/uL (0-0.7); Eosinophils % (A) 0 %; HCT 44.8 % (34.0-46.0); HGB 14.3 gm/dL (11.4-16.0); Lymphocytes % (A) 5 %; MCH 30.1 pg (25.0-35.0); MCV 93.8 fL (80.0-100.0); Mean Platelet Volume 6.6; Monocytes # (A) 0.5 k/uL (0-1.0); Monocytes % (A) 3 %; Neutrophils # (A) 17.9 k/uL (1.3-7.7); Neutrophils % (A) 91 %; Platelet Count 314 k/uL (150-450); RBC 4.77 m/uL (3.80-5.40); RDW 14.1 % (11.5-15.5); WBC 19.6 k/uL (3.8-10.6)
[2019-03-01 15:05] LABS: Calcium 8.8 mg/dL (8.4-10.2); Potassium 5.1 mmol/L (3.5-5.1)
[2019-03-01] MEDS ORDERED: ALBUTEROL NEBULIZED 2.5 MG/3 ML INHALATION PRN (15:26)
--- NOTE | 2019-03-01 15:39 | P.CONS ---
History of Present Illness - Reason for Consult Leukocytosis, history of COPD - History of Present Illness Patient is a pleasant 48-year-old female was admitted for Hysterectomy and reversal of colostomy sepsis underwent surgery patient is still coming out of anesthesia unable to get much of the history from the patient patient can use to smoke uses albuterol on as-needed basis not wheezing at this time patient does have leukocytosis which appears to be reactive without any signs or symptoms of sepsis denied any dysuria nausea vomiting cough Review of Systems REVIEW OF SYSTEMS: CONSTITUTIONAL: No fever, no malaise, no fatigue. HEENT: No recent visual problems or hearing problems. Denied any sore throat. CARDIOVASCULAR: No chest pain, orthopnea, PND, no palpitations, no syncope. PULMONARY: No shortness of breath, no cough, no hemoptysis. GASTROINTESTINAL: No diarrhea, no nausea, no vomiting, no abdominal pain. NEUROLOGICAL: No headaches, no weakness, no numbness. HEMATOLOGICAL: Denies any bleeding or petechiae. GENITOURINARY: Denies any burning micturition, frequency, or urgency. MUSCULOSKELETAL/RHEUMATOLOGICAL: Denies any joint pain, swelling, or any muscle pain. ENDOCRINE: Denies any polyuria or polydipsia. The rest of the 14-point review of systems is negative. Past Medical History Past Medical History: Diabetes Mellitus Additional Past Medical History / Comment(s): ENLARGED UTERUS, FIBROIDS, OVARIAN CYSTS; ONGOING MENORRHAGIA. DIVERTICULITIS W/ BOWEL PERFORATION 10/20/18, HAS COLOSTOMY. ON RX FOR TOENAIL FUNGUS. History of Any Multi-Drug Resistant Organisms: None Reported Past Surgical History: Appendectomy, Bowel Resection, Section, Tonsillectomy, Tubal Ligation, Uterine Ablation Additional Past Surgical History / Comment(s): Tummy Tuck, meliton cataracts, PILONIDAL CYST X3 (LAST 12/26/15), HEMORRHOIDECTOMY (12/26/15). COLOSTOMY 10/23/18. Past Anesthesia/Blood Transfusion Reactions: Postoperative Nausea & Vomiting (PONV) Smoking Status: Current every day smoker - Past Family History Mother Family Medical History: No Reported History Medications and Allergies Home Medications Medication Instructions Recorded Confirmed Type Cyanocobalamin (Vitamin B-12) 1,000 mcg PO DAILY 10/20/18 02/28/19 History [Vitamin B-12] Vitamin D3 10,000 Iu Oral Solution 5,000 units PO DAILY 10/20/18 02/28/19 History Albuterol Inhaler [Ventolin Hfa 1 - 2 puff INHALATION RT-Q6H PRN 02/19/19 03/01/19 History Inhaler] Fluconazole [Diflucan] 150 mg PO MCCORMICK 02/19/19 02/28/19 History Fluticasone Nasal [place] [Flonase 2 spr EA NOSTRIL HS 02/19/19 03/01/19 History Nasal [place]] L. Rhamnosus GG/Inulin [Culturelle 1 each PO DAILY 02/19/19 02/28/19 History Probiotics Capsule] Multivitamins, Thera [Multivitamin 1 tab PO DAILY 02/19/19 02/28/19 History (formulary)] Allergies Allergy/AdvReac Type Severity Reaction Status Date / Time adhesive tape Allergy Rash/Hives Verified 03/01/19 14:59 Physical Exam Vitals: Vital Signs Temp Pulse Resp BP Pulse Ox 03/01/19 13:58 68 14 156/70 100 03/01/19 13:30 69 16 130/69 100 03/01/19 13:15 70 16 94/54 97 03/01/19 13:00 71 16 97/55 95 03/01/19 12:45 76 14 104/80 92 L 03/01/19 12:36 97.4 F L 72 14 95/50 95 03/01/19 06:31 97.8 F 79 18 92/60 95 Intake and Output 03/01/19 03/01/19 03/01/19 06:59 14:59 22:59 Intake Total 300 4800 Output Total 460 Balance 300 4340 Intake: IV 300 4800 Output: Urine 310 Estimated Blood Loss 150 Other: Weight 90.718 kg PHYSICAL EXAMINATION: GENERAL: Drowsy coming out of anesthesia, not in any acute distress. Well developed, well nourished. HEENT: Pupils are round and equally reacting to light. EOMI. No scleral icterus. No conjunctival pallor. Normocephalic, atraumatic. No pharyngeal erythema. No thyromegaly. CARDIOVASCULAR: S1 and S2 present. No murmurs, rubs, or gallops. PULMONARY: Chest is clear to auscultation, no wheezing or crackles. ABDOMEN: Soft, nontender, nondistended, normoactive bowel sounds. No palpable organomegaly. MUSCULOSKELETAL: No joint swelling or deformity. EXTREMITIES: No cyanosis, clubbing, or pedal edema. NEUROLOGICAL: Gross neurological examination did not reveal any focal deficits. SKIN: No rashes. Results CBC & Chem 7: 03/01/19 14:37 03/01/19 14:37 Labs: Abnormal Lab Results - Last 24 Hours (Table) 03/01/19 03/01/19 03/01/19 Range/Units 14:10 14:37 14:37 WBC 19.6 H (3.8-10.6) k/uL Neutrophils # 17.9 H (1.3-7.7) k/uL Glucose 118 H (74-99) mg/dL POC Glucose (mg/dL) 138 H (75-99) mg/dL Assessment and Plan Plan: -Leukocytosis reactive without any signs or symptoms of infection no further intervention is necessary clinical monitoring. -Patient had history of diabetes mellitus although patient blood sugars are not very high patient can get hemoglobin A1c of 10 as an outpatient patient is not on any diabetic medications at this time. -Possibly of mild COPD presently not in acute exacerbation is a smoker on albuterol as needed she'll be continued. -Nicotine abuse: Counseling was provided -Depression -Status post hysterectomy and reversal of colostomy postoperative day 0 pain management due to prophylaxis as per primary service.
--- NOTE | 2019-03-01 16:29 | P.OP ---
Date of Procedure: 03/01/19 Procedure(s) Performed: PREOPERATIVE DIAGNOSIS: Diverticulitis POSTOPERATIVE DIAGNOSIS: Same PROCEDURE: Colostomy reversal, lysis of adhesions, assist Dr. Copeland with [facility] SURGEON: Gillian EBL: 100 mL ANESTHESIA: General COMPLICATIONS: None OPERATIVE PROCEDURE: Patient place in the operative table in the supine position. The patient was placed under general anesthesia. The patient was then placed in lithotomy. The stoma was closed using a pursestring 2-0 Vicryl stitch. The abdomen was prepped and draped in usual sterile fashion. An elliptical incision was made around the colostomy. Dissection through the subcutaneous fat took place using electrocautery. Entrance into the peritoneal cavity took place. The stoma was fully mobilized and reduced back into the peritoneal cavity. At that time a vertical incision was made using a scalpel. The fascia was divided using cautery as well. The Bookwalter retractor was utilized. The patient had adhesions in the abdominal cavity that were lysed using both sharp and blunt and electrocautery. The bowel was reduced back into the upper abdomen. Adhesions to the pelvis were lysed as well. We had good visualization of the patient's ovaries and uterus at that point. Dr. Copeland proceeded with a total abdominal hysterectomy. I assisted with that part of the procedure. That portion of the procedure will be dictated separately. Once the vaginal cuff was closed the distal sigmoid colon was mobilized using blunt dissection electrocautery and the LigaSure device. An additional 5 cm of so of the distal sigmoid colon and proximal rectum was excised at that time using both the LigaSure and a contour stapler. It appeared that we did not have enough length to reach the pelvis at that point. Full mobilization of the splenic flexure took place using both blunt dissection electrocautery and the LigaSure device. This allowed for excellent mobilization and the stoma site reached the pelvis quite nicely. The bowel just immediately proximal to the stoma was incised. The sizers were utilized. The 29 EEA stapler was chosen. The anvil was advanced into the lumen of the bowel. It was milked proximally. A linear 75 stapler was then fired across the bowel approximately 5-6cm proximal to the end ostomy. The anvil was brought out adjacent to the staple line using blunt dissection. A 3-0 GI silk pursestring stitch was placed at that location at that time. The stapler was then inserted into the anus and brought up to the staple line. The obturator was brought out just posterior to the staple line. The 2 portions of the stapler were connected to one another and subsequently tightened and fired. 3-0 GI silk Lambert sutures were used to strengthen the anastomosis. The bowel was clamped proximal to the anastomosis. The rigid sigmoidoscope was utilized to fill the anastomotic site nicely with air. There was saline in the pelvis at this time. No evidence of leak was seen. The abdomen was irrigated with saline. The liver, stomach, visualized colon, and small bowel appeared normal. The midline fascia was then reapproximated using 3 separate double-stranded #1 PDS sutures. The fascia at the stoma site was reapproximated using [id number] 0 Ethibond sutures in a horizontal fashion. The subcutaneous tissues were closed using 2-0 Vicryl sutures. The skin was then closed using kasi. A single 3-0 nylon horizontal mattress stitch was used at the middle of our colostomy incision site closure. Sterile dressings were then applied. DISPOSITION: Stable to recovery room
[2019-03-01] MEDS: ROPIVACAINE 300 MG, HYDROMORPHONE (PF) 5 MG in SODIUM CHLORIDE 0.9% 190 ML EPIDURAL PRN (16:39)
[2019-03-01] MEDS: D5-0.45% NACL WITH KCL 20MEQ/L 1,000 ML IV SCH (17:19)
[2019-03-01] MEDS: FLUTICASONE 50MCG/SPRAY NASAL 16GM EA NOSTRIL SCH (21:05)
[2019-03-01] MEDS: FAMOTIDINE 20 MG/2 ML VIAL IV SCH (21:06)
[2019-03-01] MEDS: ALVIMOPAN 12 MG CAPSULE PO SCH (21:06)
[2019-03-02] MEDS: D5-0.45% NACL WITH KCL 20MEQ/L 1,000 ML IV SCH ×3 (00:56→13:25)
[2019-03-02] MEDS: HEPARIN SODIUM,PORCINE 5,000 UNIT/ML 1 ML VIAL SQ SCH ×3 (00:57→15:52)
[2019-03-02] MEDS: LACTATED RINGERS 1,000 ML IV SCH (06:51)
--- NOTE | 2019-03-02 08:02 | P.PN ---
Progress Note - Text 03/01 730am 48-year-old female status post colostomy reversal and Lul. Patient has epidural catheter for postop pain control with the solution running at 5 mL an hour with a VAS of 5. Patient has no weakness or numbness and has been ambulating well. Complains of pruritus and is being treated with Benadryl plan to continue epidural infusion for another day
--- NOTE | 2019-03-02 08:02 | P.PN ---
Progress Note - Text Progress Note Date: 03/02/19 S/P AMINA and reversal of Colostomy and lysis of adhesions POD #1 Pt is feeling well and ambulating with epidural. Tender to light touch on skin around incision but able to move without too much discomfort. Catheter is still in place and she has good output. tolerating clears. VSS Abdomen: soft, expected post op tenderness, dressing is clean and dry. Ext: neg trace's A 1. S/P AMINA and reversal of Colostomy and lysis of adhesions POD #1 P1. advance diet with flatus 2. increase ambulation 3. possibly remove catheter today-defer to gen surg.
[2019-03-02] MEDS: ALVIMOPAN 12 MG CAPSULE PO SCH ×2 (08:19→20:44)
[2019-03-02] MEDS: FAMOTIDINE 20 MG/2 ML VIAL IV SCH ×2 (08:19→20:44)
--- NOTE | 2019-03-02 14:11 | P.PN ---
<Kalyani Lomas Chris - Last Filed: 03/02/19 13:59> Subjective Progress Note Date: 03/02/19 HISTORY OF PRESENT ILLNESS: Patient is status post colostomy reversal and lysis of adhesions by Dr. French and total abdominal hysterectomy by Dr. Copeland. Patient is sitting up in the bed. She has been ambulating multiple times in the hallway. Tolerating clear liquid diet. Reports belching. No flatus. No BM. PHYSICAL EXAM: VITAL SIGNS: Reviewed. GENERAL: Well-developed in no acute distress. HEENT: No sclera icterus. Extraocular movements grossly intact. Moist buccal mucosa. Head is atraumatic, normocephalic. ABDOMEN: Soft. Nondistended. Nontender. Dressing clean dry intact. Hypoactive bowel sounds. NEUROLOGIC: Alert and oriented. Cranial nerves II through XII grossly intact. ASSESSMENT: 1. Status post colostomy reversal, lysis of adhesions, and total abdominal hysterectomy 2. Leukocytosis PLAN: 1. Continue epidural and Saunders catheter. Discontinue POD #3. 2. Activity as tolerated 3. Incentive spirometry 4. Continue clear liquid diet until patient begins passing flatus may advance 5. Discontinue IV fluids with potassium due to K 5.1. 6. Monitor WBC. Repeat in AM Nurse practitioner note has been reviewed by physician. Signing provider agrees with the documented findings, assessment, and plan of care. Objective - Vital Signs Vital signs: Vital Signs Temp 98.1 F 03/02/19 07:09 Pulse 83 03/02/19 07:09 Resp 16 03/02/19 00:48 BP 124/80 03/02/19 07:09 Pulse Ox 92 L 03/02/19 00:48 Intake & Output 03/01/19 03/02/19 03/02/19 18:59 06:59 18:59 Intake Total 5047.9 1450 750 Output Total 560 1700 Balance 4487.9 -250 750 Weight 90.718 kg Intake: IV 4800 Intake, IV Titration 11.9 1000 750 Amount D5-0.45% NaCl with KCl 1000 750 20Meq/l 1,000 ml @ 125 mls/hr IV .Q8H [facility] Rx#: [id number] Ropivacaine 300 mg 11.9 Hydromorphone (Pf) 5 mg In Sodium Chloride 0.9% 190 ml @ Per Protocol EPIDURAL .Q0M PRN Rx#: [id number] Oral 236 450 Output: Urine 410 1700 Estimated Blood Loss 150 Other: Voiding Method Indwelling Catheter Indwelling Catheter Indwelling Catheter - Labs CBC & Chem 7: 03/01/19 14:37 03/01/19 14:37 Labs: Abnormal Lab Results - Last 24 Hours (Table) 03/01/19 03/01/19 03/01/19 Range/Units 14:10 14:37 14:37 WBC 19.6 H (3.8-10.6) k/uL Neutrophils # 17.9 H (1.3-7.7) k/uL Glucose 118 H (74-99) mg/dL POC Glucose (mg/dL) 138 H (75-99) mg/dL <Logan French - Last Filed: 03/02/19 15:18> Subjective As above. Patient doing well. Not sleeping well. Tolerating liquids. No bowel function. Small amount of vaginal bleeding. Labs noted. Mild leukocytosis noted. Will add Ambien when necessary. Will add abdominal binder. Keep epidural and Saunders for now. Objective - Vital Signs Vital signs: Vital Signs Temp 98.1 F 03/02/19 07:09 Pulse 83 03/02/19 07:09 Resp 16 03/02/19 00:48 BP 124/80 03/02/19 07:09 Pulse Ox 92 L 03/02/19 00:48 Intake & Output 03/01/19 03/02/19 03/02/19 18:59 06:59 18:59 Intake Total 5047.9 1450 750 Output Total 560 1700 Balance 4487.9 -250 750 Weight 90.718 kg Intake: IV 4800 Intake, IV Titration 11.9 1000 750 Amount D5-0.45% NaCl with KCl 1000 750 20Meq/l 1,000 ml @ 125 mls/hr IV .Q8H [facility] Rx#: [id number] Ropivacaine 300 mg 11.9 Hydromorphone (Pf) 5 mg In Sodium Chloride 0.9% 190 ml @ Per Protocol EPIDURAL .Q0M PRN Rx#: [id number] Oral 236 450 Output: Urine 410 1700 Estimated Blood Loss 150 Other: Voiding Method Indwelling Catheter Indwelling Catheter Indwelling Catheter - Labs CBC & Chem 7: 03/01/19 14:37 03/01/19 14:37
[2019-03-02] MEDS: SODIUM CHLORIDE 0.9% 1,000 ML IV SCH (14:13)
[2019-03-02] MEDS ORDERED: ZOLPIDEM 5 MG TAB PO PRN (15:16)
--- NOTE | 2019-03-02 15:50 | P.PN ---
Subjective Patient is a pleasant 48-year-old female was admitted for Hysterectomy and reversal of colostomy sepsis underwent surgery patient is still coming out of anesthesia unable to get much of the history from the patient patient can use to smoke uses albuterol on as-needed basis not wheezing at this time patient does have leukocytosis which appears to be reactive without any signs or symptoms of sepsis denied any dysuria nausea vomiting cough. 03/02/2019 Patient is an lady in the hallway did not pass gas yet is belching. Patient still has an epidural during previous denied any significant pain at this time. Constitutional: Denied any fatigue denied any fever. Cardio vascular: denied any chest pain, palpitations Gastrointestinal denied any nausea vomiting Pulmonary: Denied any shortness of breath cough Neurologic denied any new focal deficits All inpatient medications were reviewed and appropriate changes in these medications as dictated in the interval history and assessment and plan. Objective - Vital Signs Vital signs: Vital Signs Temp 98.2 F 03/02/19 15:34 Pulse 74 03/02/19 15:34 Resp 17 03/02/19 15:34 BP 123/74 03/02/19 15:34 Pulse Ox 91 L 03/02/19 15:34 Intake & Output 03/01/19 03/02/19 03/02/19 18:59 06:59 18:59 Intake Total 5047.9 1450 750 Output Total 560 1700 Balance 4487.9 -250 750 Weight 90.718 kg Intake: IV 4800 Intake, IV Titration 11.9 1000 750 Amount D5-0.45% NaCl with KCl 1000 750 20Meq/l 1,000 ml @ 125 mls/hr IV .Q8H [facility] Rx#: [id number] Ropivacaine 300 mg 11.9 Hydromorphone (Pf) 5 mg In Sodium Chloride 0.9% 190 ml @ Per Protocol EPIDURAL .Q0M PRN Rx#: [id number] Oral 236 450 Output: Urine 410 1700 Estimated Blood Loss 150 Other: Voiding Method Indwelling Catheter Indwelling Catheter Indwelling Catheter - Exam PHYSICAL EXAMINATION: GENERAL: Drowsy coming out of anesthesia, not in any acute distress. Well developed, well nourished. HEENT: Pupils are round and equally reacting to light. EOMI. No scleral icterus. No conjunctival pallor. Normocephalic, atraumatic. No pharyngeal erythema. No thyromegaly. CARDIOVASCULAR: S1 and S2 present. No murmurs, rubs, or gallops. PULMONARY: Chest is clear to auscultation, no wheezing or crackles. ABDOMEN: Soft surgical site areas are cleaned sluggish bowel sounds MUSCULOSKELETAL: No joint swelling or deformity. EXTREMITIES: No cyanosis, clubbing, or pedal edema. NEUROLOGICAL: Gross neurological examination did not reveal any focal deficits. SKIN: No rashes. - Labs CBC & Chem 7: 03/01/19 14:37 03/01/19 14:37 Assessment and Plan Plan: -Leukocytosis reactive without any signs or symptoms of infection no further intervention is necessary clinical monitoring. Patient is ablating no overnight events -Patient had history of diabetes mellitus although patient blood sugars are not very high patient can get hemoglobin A1c can be obtained as an outpatient patient is not on any diabetic medications at this time. -Possibly of mild COPD presently not in acute exacerbation is a smoker on albuterol as needed she'll be continued. -Nicotine abuse: -Depression -Status post hysterectomy and reversal of colostomy postoperative day 1 pain management due to prophylaxis as per primary service.
[2019-03-02] MEDS: ROPIVACAINE 300 MG, HYDROMORPHONE (PF) 5 MG in SODIUM CHLORIDE 0.9% 190 ML EPIDURAL PRN (18:07)
[2019-03-02] MEDS: FLUTICASONE 50MCG/SPRAY NASAL 16GM EA NOSTRIL SCH (20:44)
[2019-03-03] MEDS: HEPARIN SODIUM,PORCINE 5,000 UNIT/ML 1 ML VIAL SQ SCH ×4 (01:40→23:54)
[2019-03-03] MEDS: SODIUM CHLORIDE 0.9% 1,000 ML IV SCH ×3 (01:42→20:05)
[2019-03-03 08:10] LABS: Basophils % (A) 0 %; Eosinophils # (A) 0.4 k/uL (0-0.7); Eosinophils % (A) 3 %; HCT 38.3 % (34.0-46.0); HGB 12.6 gm/dL (11.4-16.0); Lymphocytes # (A) 2.1 k/uL (1.0-4.8); Lymphocytes % (A) 15 %; MCH 30.6 pg (25.0-35.0); MCHC 32.9 g/dL (31.0-37.0); MCV 92.8 fL (80.0-100.0); Monocytes # (A) 0.7 k/uL (0-1.0); Monocytes % (A) 5 %; Neutrophils # (A) 10.7 k/uL (1.3-7.7); Neutrophils % (A) 76 %; Platelet Count 258 k/uL (150-450); RBC 4.13 m/uL (3.80-5.40); RDW 14.4 % (11.5-15.5); WBC 14.1 k/uL (3.8-10.6)
[2019-03-03 08:17] LABS: Anion Gap 5 mmol/L; Blood Urea Nitrogen 6 mg/dL (7-17); Carbon Dioxide 29 mmol/L (22-30); Chloride 100 mmol/L (98-107); Glucose 111 mg/dL (74-99); Potassium 4.6 mmol/L (3.5-5.1); Sodium 134 mmol/L (137-145)
--- NOTE | 2019-03-03 08:42 | P.PN ---
Progress Note - Text Progress Note Date: 03/03/19 Post operative day #2. Patient is resting without new complaints. Vital signs are stable however she does have a low-grade temperature to 99. White blood cell count is decreased to 14 from 19. Patient's abdomen is soft and tender to palpation. Pathology from her hysterectomy showed simple endometrial hyperplasia without atypia. I did review this with her. No new orders from a HUMAN RESOURCES SAFETY MANAGER standpoint we'll continue followed general surgery for postoperative care.
[2019-03-03] MEDS: FAMOTIDINE 20 MG/2 ML VIAL IV SCH ×2 (09:32→19:57)
[2019-03-03] MEDS: METOCLOPRAMIDE 5 MG/ML 2 ML VIAL IVP PRN ×2 (09:32→21:54)
[2019-03-03] MEDS: ALVIMOPAN 12 MG CAPSULE PO SCH ×2 (09:33→19:55)
--- NOTE | 2019-03-03 10:31 | P.PN ---
Progress Note - Text Progress Note Date: 03/03/19 48-year-old female status post colostomy reversal and total abdominal hysterectomy postop day #2. Epidural catheter day #3. Patient doing well VAS is a 2-410 in severity depending on movement. No compressive motor sensory deficits no pruritus, tolerating clears. Continue epidural catheter for 1 more day at current settings.
--- NOTE | 2019-03-03 10:36 | P.PN ---
Subjective Progress Note Date: 03/03/19 Principal diagnosis: Diverticulitis Patient complaining of belching and regurgitation today. No nausea. No vomiting thus far. Today's white blood cell count 14.1. Still complaining of itching. No flatus or bowel function. Objective - Vital Signs Vital signs: Vital Signs Temp 99 F 03/03/19 07:24 Pulse 98 03/03/19 01:40 Resp 16 03/03/19 07:24 BP 111/76 03/03/19 07:24 Pulse Ox 93 L 03/03/19 07:53 Intake & Output 03/02/19 03/03/19 03/03/19 18:59 06:59 18:59 Intake Total 868.833 350 78 Output Total 250 200 Balance 868.833 100 -122 Intake: Intake, IV Titration 868.833 350 78 Amount D5-0.45% NaCl with KCl 750 20Meq/l 1,000 ml @ 125 mls/hr IV .[facility]H [facility] Rx#: [id number] Ropivacaine 300 mg 118.833 78 Hydromorphone (Pf) 5 mg In Sodium Chloride 0.9% 190 ml @ Per Protocol EPIDURAL .Q0M PRN Rx#: [id number] Sodium Chloride 0.9% 1, 350 000 ml @ 100 mls/hr IV . Q10H [facility] Rx#:[id number] Output: Urine 250 200 Uretheral (Saunders) 200 Other: Voiding Method Indwelling Catheter Incontinent Indwelling Catheter - Exam Abdomen: Soft, mild distention, dressing clean and dry, mild tenderness - Labs CBC & Chem 7: 03/03/19 07:50 03/03/19 07:50 Labs: Abnormal Lab Results - Last 24 Hours (Table) 03/03/19 03/03/19 Range/Units 07:50 07:50 WBC 14.1 H (3.8-10.6) k/uL Neutrophils # 10.7 H (1.3-7.7) k/uL Sodium 134 L (137-145) mmol/L BUN 6 L (7-17) mg/dL Glucose 111 H (74-99) mg/dL Assessment and Plan (1) Diverticulitis Narrative/Plan: Patient with evidence of intestinal ileus. Continue Entereg. Continue gum chewing. Ambulate. Will add Reglan. Keep nothing by mouth except for ice chips. Decrease epidural rate. Recheck labs tomorrow. Current Visit: No Status: Acute Code(s): K57.92 - DVTRCLI OF INTEST, PART UNSP, W/O PERF OR ABSCESS W/O BLEED SNOMED Code(s): 742584710
[2019-03-03] MEDS: LACTATED RINGERS 1,000 ML IV SCH (11:22)
[2019-03-03] MEDS ORDERED: LOPERAMIDE 2 MG CAP PO PRN (15:35)
--- NOTE | 2019-03-03 15:52 | P.PN ---
Subjective Patient is a pleasant 48-year-old female was admitted for Hysterectomy and reversal of colostomy sepsis underwent surgery patient is still coming out of anesthesia unable to get much of the history from the patient patient can use to smoke uses albuterol on as-needed basis not wheezing at this time patient does have leukocytosis which appears to be reactive without any signs or symptoms of sepsis denied any dysuria nausea vomiting cough. 03/02/2019 Patient is ambulating in the hallway did not pass gas yet is belching. Patient still has an epidural during previous denied any significant pain at this time. 03/03/2019 Patient has 6 bowel sounds was comparing of nausea patient appears to have ileus. Just surgery operative NG tube patient wanted to try conservatively patient's epidural is being tapered down and patient was started on Alvimopan. He is due in used to constipation Constitutional: Denied any fatigue denied any fever. Cardio vascular: denied any chest pain, palpitations Gastrointestinal as mentioned above Pulmonary: Denied any shortness of breath cough Neurologic denied any new focal deficits All inpatient medications were reviewed and appropriate changes in these medications as dictated in the interval history and assessment and plan. Objective - Vital Signs Vital signs: Vital Signs Temp 99 F 03/03/19 07:24 Pulse 98 03/03/19 01:40 Resp 16 03/03/19 07:24 BP 111/76 03/03/19 07:24 Pulse Ox 93 L 03/03/19 07:53 Intake & Output 03/02/19 03/03/19 03/03/19 18:59 06:59 18:59 Intake Total 868.833 350 78 Output Total 250 200 Balance 868.833 100 -122 Intake: Intake, IV Titration 868.833 350 78 Amount D5-0.45% NaCl with KCl 750 20Meq/l 1,000 ml @ 125 mls/hr IV .Q8H [facility] Rx#: [id number] Ropivacaine 300 mg 118.833 78 Hydromorphone (Pf) 5 mg In Sodium Chloride 0.9% 190 ml @ Per Protocol EPIDURAL .Q0M PRN Rx#: [id number] Sodium Chloride 0.9% 1, 350 000 ml @ 100 mls/hr IV . Q10H [facility] Rx#:[id number] Output: Urine 250 200 Uretheral (Saunders) 200 Other: Voiding Method Indwelling Catheter Incontinent Indwelling Catheter - Exam PHYSICAL EXAMINATION: GENERAL: Drowsy coming out of anesthesia, not in any acute distress. Well developed, well nourished. HEENT: Pupils are round and equally reacting to light. EOMI. No scleral icterus. No conjunctival pallor. Normocephalic, atraumatic. No pharyngeal erythema. No thyromegaly. CARDIOVASCULAR: S1 and S2 present. No murmurs, rubs, or gallops. PULMONARY: Chest is clear to auscultation, no wheezing or crackles. ABDOMEN: Abdomen is distended sluggish bowel sounds MUSCULOSKELETAL: No joint swelling or deformity. EXTREMITIES: No cyanosis, clubbing, or pedal edema. NEUROLOGICAL: Gross neurological examination did not reveal any focal deficits. SKIN: No rashes. - Labs CBC & Chem 7: 03/03/19 07:50 03/03/19 07:50 Labs: Abnormal Lab Results - Last 24 Hours (Table) 03/03/19 03/03/19 Range/Units 07:50 07:50 WBC 14.1 H (3.8-10.6) k/uL Neutrophils # 10.7 H (1.3-7.7) k/uL Sodium 134 L (137-145) mmol/L BUN 6 L (7-17) mg/dL Glucose 111 H (74-99) mg/dL Assessment and Plan Plan: -Possible postoperative ileus: Management as mentioned above -Leukocytosis reactive without any signs or symptoms of infection no further intervention is necessary clinical monitoring. -Patient had history of diabetes mellitus although patient blood sugars are not very high patient can get hemoglobin A1c can be obtained as an outpatient patient is not on any diabetic medications at this time. -Possibly of mild COPD presently not in acute exacerbation is a smoker on albuterol as needed she'll be continued. -Nicotine abuse: -Depression -Status post hysterectomy and reversal of colostomy postoperative day 1 pain management and DVT prophylaxis as per primary service.
[2019-03-03] MEDS: ROPIVACAINE 300 MG, HYDROMORPHONE (PF) 5 MG in SODIUM CHLORIDE 0.9% 190 ML EPIDURAL PRN (16:57)
[2019-03-03] MEDS: FLUTICASONE 50MCG/SPRAY NASAL 16GM EA NOSTRIL SCH (19:57)
[2019-03-04] MEDS: LACTATED RINGERS 1,000 ML IV SCH (01:51)
[2019-03-04] MEDS: SODIUM CHLORIDE 0.9% 1,000 ML IV SCH ×3 (05:19→23:34)
--- NOTE | 2019-03-04 06:58 | P.PN ---
Progress Note - Text Progress Note Date: 03/04/19 48-year-old female status post colostomy reversal and total abdominal hysterectomy postop day #3. Epidural catheter day #4. Patient doing well VAS is a 3/10 in severity depending on movement. No compressive motor sensory deficits no pruritus, tolerating clears. Per her nurse she had a bout of nausea and vomiting this morning possibly may require a computed tomography scan of her abdomen or x-ray. She hasn't passed any stool as of yet. Epidural catheter can be discontinued today remove catheter 2 hours before giving morning dose of subcutaneous heparin. Instructions were given to the day shift nurse.
--- NOTE | 2019-03-04 07:12 | P.PN ---
Progress Note - Text Progress Note Date: 03/04/19 Nathalia is seen in the room sitting up in her chair resting. She states that she has not passed any flatus at this time and did have an episode of nausea and vomiting earlier today. She informs me that her epidural and catheter will be removed today. She has developed a low-grade temperature but otherwise is feeling well. She is stable from a [employer] standpoint and we are just waiting for bowel function to return therefore further management per general surgery. I reminded her that sometimes this does take a while for bowel function to return after having a colostomy reversal. Encouraged ambulation today.
[2019-03-04] MEDS ORDERED: HYDROmorphone 1 MG/ML 1 ML SYRINGE IVP PRN (07:46)
[2019-03-04 07:55] LABS: Basophils % (A) 0 %; Eosinophils # (A) 0.2 k/uL (0-0.7); Eosinophils % (A) 1 %; HCT 38.4 % (34.0-46.0); HGB 12.4 gm/dL (11.4-16.0); Lymphocytes # (A) 1.4 k/uL (1.0-4.8); Lymphocytes % (A) 8 %; MCHC 32.3 g/dL (31.0-37.0); MCV 92.9 fL (80.0-100.0); Mean Platelet Volume 6.7; Monocytes # (A) 0.7 k/uL (0-1.0); Monocytes % (A) 4 %; Neutrophils % (A) 85 %; Platelet Count 261 k/uL (150-450); RBC 4.13 m/uL (3.80-5.40); RDW 14.1 % (11.5-15.5); WBC 16.5 k/uL (3.8-10.6)
[2019-03-04 08:05] LABS: Anion Gap 9 mmol/L; Blood Urea Nitrogen 8 mg/dL (7-17); Calcium 8.9 mg/dL (8.4-10.2); Carbon Dioxide 25 mmol/L (22-30); Chloride 102 mmol/L (98-107); Glucose 115 mg/dL (74-99); Potassium 4.6 mmol/L (3.5-5.1); Sodium 136 mmol/L (137-145)
[2019-03-04] MEDS: HEPARIN SODIUM,PORCINE 5,000 UNIT/ML 1 ML VIAL SQ SCH ×3 (10:05→23:31)
[2019-03-04] MEDS: FAMOTIDINE 20 MG/2 ML VIAL IV SCH (10:05)
[2019-03-04] MEDS: ALVIMOPAN 12 MG CAPSULE PO SCH ×2 (10:05→20:55)
--- NOTE | 2019-03-04 10:16 | P.PN ---
Subjective Progress Note Date: 03/04/19 Principal diagnosis: Diverticulitis Patient feels better today. She did have a small episode of emesis early this morning. Pain is improved. Epidural was removed. No nausea or vomiting currently. No flatus or bowel function yet. White blood cell count 16.5. Objective - Vital Signs Vital signs: Vital Signs Temp 98.6 F 03/04/19 08:18 Pulse 94 03/04/19 09:45 Resp 17 03/04/19 08:18 BP 113/72 03/04/19 08:18 Pulse Ox 93 L 03/04/19 08:18 Intake & Output 03/03/19 03/04/19 03/04/19 18:59 06:59 18:59 Intake Total 107.200 800 Output Total 500 400 200 Balance -392.800 400 -200 Intake: Intake, IV Titration 107.200 800 Amount Ropivacaine 300 mg 107.200 Hydromorphone (Pf) 5 mg In Sodium Chloride 0.9% 190 ml @ Per Protocol EPIDURAL .Q0M PRN Rx#: [id number] Sodium Chloride 0.9% 1, 800 000 ml @ 100 mls/hr IV . Q10H [facility] Rx#:[id number] Output: Urine 500 400 Uretheral (Saunedrs) 200 Urine/Stool Mix 200 Other: Voiding Method Indwelling Catheter Indwelling Catheter Indwelling Catheter - Exam Abdomen: Soft, nondistended, incisions clean and dry, mild tenderness - Labs CBC & Chem 7: 03/04/19 07:08 03/04/19 07:08 Labs: Abnormal Lab Results - Last 24 Hours (Table) 03/04/19 03/04/19 Range/Units 07:08 07:08 WBC 16.5 H (3.8-10.6) k/uL Neutrophils # 14.0 H (1.3-7.7) k/uL Sodium 136 L (137-145) mmol/L Glucose 115 H (74-99) mg/dL Assessment and Plan (1) Diverticulitis Narrative/Plan: Keep on ice chips only for now although the patient's bowel sounds are improved today. Increase activity. Add Toradol, Dilaudid, and [place] for pain control. Remove Saunders catheter. Ambulate. Current Visit: No Status: Acute Code(s): K57.92 - DVTRCLI OF INTEST, PART UNSP, W/O PERF OR ABSCESS W/O BLEED SNOMED Code(s): 773911828
[2019-03-04] MEDS: METOCLOPRAMIDE 5 MG/ML 2 ML VIAL IVP PRN (11:19)
[2019-03-04] MEDS: KETOROLAC 30 MG/ML 1 ML VIAL IM SCH ×2 (12:13→13:03)
[2019-03-04] MEDS ORDERED: ACETAMINOPHEN TAB 500 MG TAB PO PRN (12:34)
[2019-03-04] MEDS ORDERED: PANTOPRAZOLE 40 MG/10 ML VIAL IVP SCH (12:45)
[2019-03-04] MEDS: KETOROLAC 30 MG/ML 1 ML VIAL IVP SCH ×3 (13:03→23:31)
--- NOTE | 2019-03-04 14:51 | P.PN ---
Subjective Patient is a pleasant 48-year-old female was admitted for Hysterectomy and reversal of colostomy sepsis underwent surgery patient is still coming out of anesthesia unable to get much of the history from the patient patient can use to smoke uses albuterol on as-needed basis not wheezing at this time patient does have leukocytosis which appears to be reactive without any signs or symptoms of sepsis denied any dysuria nausea vomiting cough. 03/02/2019 Patient is ambulating in the hallway did not pass gas yet is belching. Patient still has an epidural during previous denied any significant pain at this time. 03/03/2019 Patient has 6 bowel sounds was comparing of nausea patient appears to have ileus. Just surgery operative NG tube patient wanted to try conservatively patient's epidural is being tapered down and patient was started on Alvimopan. He is due in used to constipation 03/04/2019 Patient does have sounds didn't move her bowel yet still has some nausea epidural was discontinued and the tramadol was added and also that Tylenol will use these 2 medications before Dilaudid. Try to avoid opiates Constitutional: Denied any fatigue denied any fever. Cardio vascular: denied any chest pain, palpitations Gastrointestinal as mentioned above Pulmonary: Denied any shortness of breath cough Neurologic denied any new focal deficits All inpatient medications were reviewed and appropriate changes in these medications as dictated in the interval history and assessment and plan. Objective - Vital Signs Vital signs: Vital Signs Temp 98.6 F 03/04/19 08:18 Pulse 94 03/04/19 09:45 Resp 17 03/04/19 08:18 BP 113/72 03/04/19 08:18 Pulse Ox 93 L 03/04/19 08:18 Intake & Output 03/03/19 03/04/19 03/04/19 18:59 06:59 18:59 Intake Total 107.200 800 Output Total 500 400 200 Balance -392.800 400 -200 Intake: Intake, IV Titration 107.200 800 Amount Ropivacaine 300 mg 107.200 Hydromorphone (Pf) 5 mg In Sodium Chloride 0.9% 190 ml @ Per Protocol EPIDURAL .Q0M PRN Rx#: [id number] Sodium Chloride 0.9% 1, 800 000 ml @ 100 mls/hr IV . Q10H [facility] Rx#:[id number] Output: Urine 500 400 Uretheral (Saunders) 200 Urine/Stool Mix 200 Other: Voiding Method Indwelling Catheter Indwelling Catheter Indwelling Catheter - Exam PHYSICAL EXAMINATION: GENERAL: Drowsy coming out of anesthesia, not in any acute distress. Well developed, well nourished. HEENT: Pupils are round and equally reacting to light. EOMI. No scleral icterus. No conjunctival pallor. Normocephalic, atraumatic. No pharyngeal erythema. No thyromegaly. CARDIOVASCULAR: S1 and S2 present. No murmurs, rubs, or gallops. PULMONARY: Chest is clear to auscultation, no wheezing or crackles. ABDOMEN: Abdomen is distended sluggish bowel sounds but present MUSCULOSKELETAL: No joint swelling or deformity. EXTREMITIES: No cyanosis, clubbing, or pedal edema. NEUROLOGICAL: Gross neurological examination did not reveal any focal deficits. SKIN: No rashes. - Labs CBC & Chem 7: 03/04/19 07:08 03/04/19 07:08 Labs: Abnormal Lab Results - Last 24 Hours (Table) 03/04/19 03/04/19 Range/Units 07:08 07:08 WBC 16.5 H (3.8-10.6) k/uL Neutrophils # 14.0 H (1.3-7.7) k/uL Sodium 136 L (137-145) mmol/L Glucose 115 H (74-99) mg/dL Assessment and Plan Plan: -Possible postoperative ileus: Patient was started on clear liquid diet still nauseous does have sluggish bowel sounds which is an improvement compared to yesterday. Pain management as mentioned above -Leukocytosis reactive without any signs or symptoms of infection no further intervention is necessary clinical monitoring. -Patient had history of diabetes mellitus although patient blood sugars are not very high patient can get hemoglobin A1c can be obtained as an outpatient patient is not on any diabetic medications at this time. -Possibly of mild COPD presently not in acute exacerbation is a smoker on albuterol as needed she'll be continued. -Nicotine abuse: -Depression -Status post hysterectomy and reversal of colostomy postoperative day 3 pain management and DVT prophylaxis as per primary service.
[2019-03-04 18:23] LABS: Glucose,Whole Blood 97 mg/dL (75-99)
[2019-03-04] MEDS: FLUTICASONE 50MCG/SPRAY NASAL 16GM EA NOSTRIL SCH (20:55)
[2019-03-04 23:18] LABS: Appearance,Urine Turbid (Clear); Bacteria,Urine Rare /hpf; Bilirubin,Urine Negative (Negative); Blood,Urine Small (Negative); Calcium Oxalate Crystals,Urine Occasional /hpf; Color,Urine Yellow; Glucose,Urine (UA) Negative (Negative); Ketones,Urine 4+ (Negative); Leukocyte Esterase,Urine Moderate (Negative); Mucus,Urine Few /hpf; Nitrite,Urine Negative (Negative); Protein,Urine 1+ (Negative); RBC,Urine 5 /hpf (0-5); Specific Gravity,Urine 1.026 (1.001-1.035); Squamous Epithelial Cell,Urine 2 /hpf (0-4); Urobilinogen,Urine <2.0 mg/dL (<2.0)
[2019-03-05 02:35] VITALS: RESP 16
[2019-03-05] MEDS: LACTATED RINGERS 1,000 ML IV SCH (03:16)
[2019-03-05] MEDS: HYDROcodone/APAP 5-325MG 1 EACH TAB PO PRN ×2 (03:32→12:39)
[2019-03-05 06:54] LABS: Basophils % (A) 0 %; Eosinophils # (A) 0.6 k/uL (0-0.7); Eosinophils % (A) 4 %; HCT 36.7 % (34.0-46.0); HGB 11.8 gm/dL (11.4-16.0); Lymphocytes # (A) 2.2 k/uL (1.0-4.8); Lymphocytes % (A) 16 %; MCH 29.9 pg (25.0-35.0); MCHC 32.2 g/dL (31.0-37.0); MCV 92.9 fL (80.0-100.0); Mean Platelet Volume 6.7; Monocytes # (A) 0.6 k/uL (0-1.0); Monocytes % (A) 5 %; Neutrophils # (A) 9.9 k/uL (1.3-7.7); Neutrophils % (A) 73 %; Platelet Count 280 k/uL (150-450); RBC 3.95 m/uL (3.80-5.40); RDW 14.3 % (11.5-15.5); WBC 13.4 k/uL (3.8-10.6)
[2019-03-05 07:05] LABS: Anion Gap 8 mmol/L; Blood Urea Nitrogen 8 mg/dL (7-17); Calcium 8.8 mg/dL (8.4-10.2); Carbon Dioxide 24 mmol/L (22-30); Chloride 107 mmol/L (98-107); Glucose 90 mg/dL (74-99); Sodium 139 mmol/L (137-145)
[2019-03-05] MEDS: KETOROLAC 30 MG/ML 1 ML VIAL IVP SCH ×2 (07:09→12:37)
[2019-03-05] MEDS: ALVIMOPAN 12 MG CAPSULE PO SCH (08:57)
[2019-03-05] MEDS: HEPARIN SODIUM,PORCINE 5,000 UNIT/ML 1 ML VIAL SQ SCH (08:57)
[2019-03-05] MEDS ORDERED: PANTOPRAZOLE 40 MG TABLET PO SCH (09:00)
--- NOTE | 2019-03-05 10:38 | P.PN ---
<Kalyani Lomas Chris - Last Filed: 03/05/19 10:34> Subjective Progress Note Date: 03/05/19 HISTORY OF PRESENT ILLNESS: Patient is status post colostomy reversal and lysis of adhesions by Dr. French and total abdominal hysterectomy by Dr. Copeland. Patient is sitting up in the chair. She is tolerating ice chips. Reports BM x 3 (yesterday evening, overnight, and this morning). No nausea or vomiting. Patient refusing IV fluids or any IV medications. Pain controlled with oral medications. Has been ambulating independently. Patient is anxious and tearful to be discharged and states she misses her child. PHYSICAL EXAM: VITAL SIGNS: Reviewed. GENERAL: Well-developed in no acute distress. HEENT: No sclera icterus. Extraocular movements grossly intact. Moist buccal mucosa. Head is atraumatic, normocephalic. ABDOMEN: Soft. Nondistended. Nontender. Dressing clean dry intact. NEUROLOGIC: Alert and oriented. Cranial nerves II through XII grossly intact. ASSESSMENT: 1. Status post colostomy reversal, lysis of adhesions, and total abdominal hysterectomy 2. Leukocytosis, improving PLAN: 1. Begin clear liquid diet. Patient encouraged to go slowly with liquids 2. Activity as tolerated 3. Incentive spirometry 4. Pain control. Continue PO pain medications 5. Monitor WBC Nurse practitioner note has been reviewed by physician. Signing provider agrees with the documented findings, assessment, and plan of care. Objective - Vital Signs Vital signs: Vital Signs Temp 98.3 F 03/05/19 07:00 Pulse 88 03/05/19 07:00 Resp 16 03/05/19 07:00 BP 117/74 03/05/19 07:00 Pulse Ox 94 L 03/05/19 07:00 Intake & Output 03/04/19 03/05/19 03/05/19 18:59 06:59 18:59 Output Total 700 Balance -700 Output: Urine 500 Urine/Stool Mix 200 Other: Voiding Method Indwelling Catheter Indwelling Catheter # Voids 2 # Bowel Movements 2 - Labs CBC & Chem 7: 03/05/19 06:34 03/05/19 06:34 Labs: Abnormal Lab Results - Last 24 Hours (Table) 03/04/19 03/05/19 Range/Units 14:40 06:34 WBC 13.4 H (3.8-10.6) k/uL Neutrophils # 9.9 H (1.3-7.7) k/uL Urine Appearance Turbid H (Clear) Urine Protein 1+ H (Negative) Urine Ketones 4+ H (Negative) Urine Blood Small H (Negative) Ur Leukocyte Esterase Moderate H (Negative) Urine WBC 21 H (0-5) /hpf Calcium Oxalate Crystal Occasional H (None) /hpf Urine Bacteria Rare H (None) /hpf Urine Mucus Few H (None) /hpf <Logan French - Last Filed: 03/05/19 17:13> Subjective As above. Patient doing well. She is fairly anxious to go home this evening. She is tolerating her liquids without difficulty. No nausea or vomiting. Passing both flatus and stools. Will tentatively plan discharge after dinner if tolerates solid foods. Prescription for [place] will be provided. Patient will follow up 1 week. Objective - Vital Signs Vital signs: Vital Signs Temp 98 F 03/05/19 15:00 Pulse 84 03/05/19 15:00 Resp 16 03/05/19 15:00 BP 138/82 03/05/19 15:00 Pulse Ox 94 L 03/05/19 15:00 Intake & Output 03/04/19 03/05/19 03/05/19 18:59 06:59 18:59 Output Total 700 Balance -700 Weight 90.718 kg Output: Urine 500 Urine/Stool Mix 200 Other: Voiding Method Indwelling Catheter Indwelling Catheter # Voids 2 1 # Bowel Movements 2 - Labs CBC & Chem 7: 03/05/19 06:34 03/05/19 06:34 Labs: Abnormal Lab Results - Last 24 Hours (Table) 03/04/19 03/05/19 Range/Units 14:40 06:34 WBC 13.4 H (3.8-10.6) k/uL Neutrophils # 9.9 H (1.3-7.7) k/uL Urine Appearance Turbid H (Clear) Urine Protein 1+ H (Negative) Urine Ketones 4+ H (Negative) Urine Blood Small H (Negative) Ur Leukocyte Esterase Moderate H (Negative) Urine WBC 21 H (0-5) /hpf Calcium Oxalate Crystal Occasional H (None) /hpf Urine Bacteria Rare H (None) /hpf Urine Mucus Few H (None) /hpf Microbiology - Last 24 Hours (Table) 04/14/19 14:40 Urine Culture - Preliminary Urine,Clean Catch Assessment and Plan (1) Diverticulitis Current Visit: No Status: Acute Code(s): K57.92 - DVTRCLI OF INTEST, PART UNSP, W/O PERF OR ABSCESS W/O BLEED SNOMED Code(s): 425396161
--- NOTE | 2019-03-05 13:30 | P.PN ---
Subjective Patient is a pleasant 48-year-old female was admitted for Hysterectomy and reversal of colostomy sepsis underwent surgery patient is still coming out of anesthesia unable to get much of the history from the patient patient can use to smoke uses albuterol on as-needed basis not wheezing at this time patient does have leukocytosis which appears to be reactive without any signs or symptoms of sepsis denied any dysuria nausea vomiting cough. 03/02/2019 Patient is ambulating in the hallway did not pass gas yet is belching. Patient still has an epidural during previous denied any significant pain at this time. 03/03/2019 Patient has 6 bowel sounds was comparing of nausea patient appears to have ileus. Just surgery operative NG tube patient wanted to try conservatively patient's epidural is being tapered down and patient was started on Alvimopan. He is due in used to constipation 03/04/2019 Patient does have sounds didn't move her bowel yet still has some nausea epidural was discontinued and the tramadol was added and also that Tylenol will use these 2 medications before Dilaudid. Try to avoid opiates. 03/05/2019 Patient's nausea improved patient had a bowel movement patient is clinically doing well. Will continue present medications. Constitutional: Denied any fatigue denied any fever. Cardio vascular: denied any chest pain, palpitations Gastrointestinal as mentioned above Pulmonary: Denied any shortness of breath cough Neurologic denied any new focal deficits All inpatient medications were reviewed and appropriate changes in these medications as dictated in the interval history and assessment and plan. Objective - Vital Signs Vital signs: Vital Signs Temp 98.3 F 03/05/19 07:00 Pulse 88 03/05/19 07:00 Resp 16 03/05/19 07:00 BP 117/74 03/05/19 07:00 Pulse Ox 94 L 03/05/19 07:00 Intake & Output 03/04/19 03/05/19 03/05/19 18:59 06:59 18:59 Output Total 700 Balance -700 Weight 90.718 kg Output: Urine 500 Urine/Stool Mix 200 Other: Voiding Method Indwelling Catheter Indwelling Catheter # Voids 2 # Bowel Movements 2 - Exam PHYSICAL EXAMINATION: GENERAL: Drowsy coming out of anesthesia, not in any acute distress. Well developed, well nourished. HEENT: Pupils are round and equally reacting to light. EOMI. No scleral icterus. No conjunctival pallor. Normocephalic, atraumatic. No pharyngeal erythema. No thyromegaly. CARDIOVASCULAR: S1 and S2 present. No murmurs, rubs, or gallops. PULMONARY: Chest is clear to auscultation, no wheezing or crackles. ABDOMEN: Bowel sounds are present MUSCULOSKELETAL: No joint swelling or deformity. EXTREMITIES: No cyanosis, clubbing, or pedal edema. NEUROLOGICAL: Gross neurological examination did not reveal any focal deficits. SKIN: No rashes. - Labs CBC & Chem 7: 03/05/19 06:34 03/05/19 06:34 Labs: Abnormal Lab Results - Last 24 Hours (Table) 03/04/19 03/05/19 Range/Units 14:40 06:34 WBC 13.4 H (3.8-10.6) k/uL Neutrophils # 9.9 H (1.3-7.7) k/uL Urine Appearance Turbid H (Clear) Urine Protein 1+ H (Negative) Urine Ketones 4+ H (Negative) Urine Blood Small H (Negative) Ur Leukocyte Esterase Moderate H (Negative) Urine WBC 21 H (0-5) /hpf Calcium Oxalate Crystal Occasional H (None) /hpf Urine Bacteria Rare H (None) /hpf Urine Mucus Few H (None) /hpf Microbiology - Last 24 Hours (Table) 03/04/19 14:40 Urine Culture - Preliminary Urine,Clean Catch Assessment and Plan Plan: -Possible postoperative ileus: Which resolved at this time patient is clinically doing well. Patient did move her bowels today. Patient has significant improvement compared to yesterday. -Leukocytosis reactive without any signs or symptoms of infection no further int ervention is necessary clinical monitoring. -Patient had history of diabetes mellitus although patient blood sugars are not very high patient can get hemoglobin A1c can be obtained as an outpatient patient is not on any diabetic medications at this time. -Possibly of mild COPD presently not in acute exacerbation is a smoker on albuterol as needed she'll be continued. -Nicotine abuse: -Depression -Status post hysterectomy and reversal of colostomy postoperative day 3 pain management and DVT prophylaxis as per primary service.
[2019-03-05 15:02] VITALS: BP 138/82; PULSE 84; TEMP 98
== END 2019-03-05 19:00 | disposition home or self-care (01) | DRG 742 ==
LOC: 2ORMAIN 05:28 → 4SSUR 14:20
PROVIDERS: ADMIT Surgery; ATTEND Surgery
PROC: 0UT90ZZ Resection of Uterus, Open Approach (ICD-10-PCS; principal; 2019-03-01 07:30)
PROC: 0DBN0ZZ Excision of Sigmoid Colon, Open Approach (ICD-10-PCS; 2019-03-01 07:30)
DX: D25.9 Leiomyoma of uterus, unspecified (principal); K57.92 Diverticulitis of intestine, part unspecified, without perforation or abscess without bleeding; K56.7 Ileus, unspecified; E11.9 Type 2 diabetes mellitus without complications; J44.9 Chronic obstructive pulmonary disease, unspecified; L29.9 Pruritus, unspecified; N85.01 Benign endometrial hyperplasia; N92.0 Excessive and frequent menstruation with regular cycle; F17.210 Nicotine dependence, cigarettes, uncomplicated; D72.829 Elevated white blood cell count, unspecified; Z90.49 Acquired absence of other specified parts of digestive tract; Z98.51 Tubal ligation status; Z98.42 Cataract extraction status, left eye; Z98.41 Cataract extraction status, right eye; Z96.1 Presence of intraocular lens; Z91.048 Other nonmedicinal substance allergy status; Z71.6 Tobacco abuse counseling; Z43.3 Encounter for attention to colostomy
CPT/HCPCS: 80048; 81001; 81025; 85025; 86850; 86870; 86880; 86900; 86901; 86902; 87077; 87086; 87186; 88304; 88307; 94640; 94760

== ENCOUNTER → 2019-07-12 | Outpatient (CLI) | payer BC ==
[2019-07-12 09:26] LABS: African American GFR (CKD) >90 (>60 ml/min/1.73 sqM); Blood Urea Nitrogen 15 mg/dL (7-17)
--- NOTE | 2019-07-12 11:10 | CT ---
EXAMINATION TYPE: CT abdomen pelvis w con DATE OF EXAM: 07/12/2019 HISTORY: Diverticulitis per order. History of surgery for perforated diverticulitis. CT DLP: 1094.90mGycm Automated Exposure Control for Dose Reduction was Utilized. CONTRAST: CT scan of the abdomen and pelvis is performed with IV Contrast, patient injected with 100 ml mL of I sovue 300. COMPARISON: CT abdomen and pelvis October 23, 2018 FINDINGS: LUNG BASES: No significant abnormality is appreciated. LIVER/GB: Liver remains diffusely low dense relative to spleen consistent with diffuse fatty infiltra tion. PANCREAS: Tiny subcentimeter hypodense lesions throughout the pancreas are present most prominent hea d and uncinate process largest coronal image 41 measures roughly 4 to 5 mm is felt unchanged from [place] or study axial image 38. Lesions too small to definitively characterize. SPLEEN: No significant abnormality is seen. ADRENALS: No significant abnormality is seen. KIDNEYS: No significant abnormality is seen. BOWEL: Oral contrast reaches level proximal sigmoid colon. There is been interval partial colectomy w ith sutures distal to this accident was 68. No significant residual sigmoid diverticulosis. No suspic ious small or large bowel dilatation. Low-lying cecum at the right pelvis is present. Appendix probab le surgically absent as not visualized. UTERUS/ADNEXA: Slightly retroverted uterus is seen. Remnant right ovary axial image 66 is normal in s ize. Left ovary is slightly smaller superior to this axial image 61. Scattered left-sided pelvic phle boliths. LYMPH NODES: No greater than 1cm abdominal or pelvic lymph nodes are appreciated. OSSEOUS STRUCTURES: Multilevel facet arthropathy lower lumbar spine. Mild disc space narrowing lumbos acral junction OTHER: New scar tissue over anterior abdominal wall with eventration extending to the skin surface valdez perior to axial image 28. No definitive hernia defect. IMPRESSION: Interval partial colectomy. No recurrent diverticulitis.
== END | disposition home or self-care (01) ==
LOC: RADCTMAIN 08:32
PROVIDERS: ATTEND Surgery
DX: K57.32 Diverticulitis of large intestine without perforation or abscess without bleeding (principal); Z90.49 Acquired absence of other specified parts of digestive tract
CPT/HCPCS: 82565; 84520; 74177; 36415; Q9967

== ENCOUNTER → 2019-10-01 | Outpatient (CLI) | payer BC ==
[2019-10-01 14:02] LABS: Basophils # (A) 0.2 k/uL (0-0.2); Basophils % (A) 2 %; Eosinophils # (A) 0.3 k/uL (0-0.7); Eosinophils % (A) 4 %; HCT 44.8 % (34.0-46.0); HGB 14.9 gm/dL (11.4-16.0); Lymphocytes # (A) 2.8 k/uL (1.0-4.8); Lymphocytes % (A) 36 %; MCH 31.2 pg (25.0-35.0); MCHC 33.2 g/dL (31.0-37.0); MCV 93.9 fL (80.0-100.0); Mean Platelet Volume 6.8; Monocytes # (A) 0.3 k/uL (0-1.0); Monocytes % (A) 4 %; Neutrophils % (A) 51 %; Platelet Count 289 k/uL (150-450); RBC 4.77 m/uL (3.80-5.40); RDW 12.9 % (11.5-15.5); WBC 7.8 k/uL (3.8-10.6)
== END | disposition home or self-care (01) ==
LOC: LABPAT 13:02
PROVIDERS: ATTEND Surgery
DX: Z01.812 Encounter for preprocedural laboratory examination (principal); K43.2 Incisional hernia without obstruction or gangrene
CPT/HCPCS: 85025

== ENCOUNTER 2019-10-08 06:12 | Day surgery (SDC) | payer BC ==
[2019-10-04 11:59] VITALS: BMI 34.3
[~2019-10-08 06:12] MED LIST changes: -HYDROmorphone 0.5 MG/0.5 ML SYRINGE IVP PRN; -MIDAZOLAM (PF) 2 MG/2 ML VIAL IV PRN; +MIDAZOLAM 2 MG/2 ML VIAL IV PRN; -ceFAZolin IN SWFI 2 GM/20 ML SYRINGE IVP ONE; +fentaNYL (PF) 50 MCG/ML 2 ML AMP IV PRN; -metroNIDAZOLE-NS PMX 500 MG in SALINE 1 100ML.BAG IVPB ONE
[2019-10-08 06:59] LABS: Glucose,Whole Blood 126 mg/dL (75-99)
[2019-10-08] MEDS: LACTATED RINGERS 1,000 ML IV SCH ×2 (07:00→07:24)
[2019-10-08] MEDS ORDERED: SCOPOLAMINE 1.5MG/72HR PATCH TRANSDERM ONE (07:34)
[2019-10-08] MEDS ORDERED: MIDAZOLAM 2 MG/2 ML VIAL ONE (07:56)
[2019-10-08] MEDS ORDERED: SUCCINYLCHOLINE CHLORIDE 100 MG/5 ML SYR IV ONE (07:56)
[2019-10-08] MEDS ORDERED: GLYCOPYRROLATE 0.2 MG/ML 2 ML VIAL ONE (07:56)
[2019-10-08] MEDS ORDERED: ROPIVACAINE 5 MG/ML 30 ML VIAL ONE (07:56)
[2019-10-08] MEDS ORDERED: ROCURONIUM BROMIDE 10 MG/ML 10 ML VIAL IV ONE (07:56)
[2019-10-08] MEDS ORDERED: LIDOCAINE 0.5% (PF) 5 MG/ML (50 ML SDV) ONE (07:56)
[2019-10-08] MEDS ORDERED: PHENYLEPHRINE-0.9% NACL SYG 1 MG/10 ML SYRINGE ONE (07:56)
[2019-10-08] MEDS ORDERED: NEOSTIGMINE 1 MG/ML 10 ML VIAL ONE (07:56)
[2019-10-08] MEDS ORDERED: LIDOCAINE 1% INJ 10MG/ML (20 ML MDV) ONE (07:56)
[2019-10-08] MEDS ORDERED: PROPOFOL 10 MG/ML 20 ML VIAL IV ONE (07:56)
[2019-10-08] MEDS ORDERED: fentaNYL (PF) 50 MCG/ML 2 ML AMP ONE (07:56)
--- NOTE | 2019-10-08 08:03 | P.GSHP ---
History of Present Illness H&P Date: 10/08/19 Chief Complaint: Incisional hernia 49-year-old female well-known to our service. Patient underwent previous colostomy and subsequent colostomy reversal. At the time of her colostomy reversal she developed a small wound infection superiorly. This has resulted in a slight bulge in that area per the patient. On examining office recently was found have a reducible hernia in the epigastric region. No identifiable hernias elsewhere. Also had a CAT scan performed. Past Medical History Past Medical History: Diabetes Mellitus Additional Past Medical History / Comment(s): States diet controlled diabetic, incisional hernia from colostomy reversal incision. States had infection post op HX FIBROIDS, OVARIAN CYSTS, DIVERTICULITIS W/ BOWEL PERFORATION 10/20/18, HAd COLOSTOMY, now reversed. History of Any Multi-Drug Resistant Organisms: None Reported Past Surgical History: Appendectomy, Bowel Resection, Section, Hysterectomy, Tonsillectomy, Tubal Ligation, Uterine Ablation Additional Past Surgical History / Comment(s): tummy tuck, meliton cataracts, PILONIDAL CYST X3 (LAST 12/26/15), HEMORRHOIDECTOMY (12/26/15). COLOSTOMY 10/23/18. reversal of colostomy 02/2019 Past Anesthesia/Blood Transfusion Reactions: Postoperative Nausea & Vomiting (PONV) Smoking Status: Current every day smoker - Past Family History Mother Family Medical History: No Reported History Medications and Allergies Home Medications Medication Instructions Recorded Confirmed Type Loratadine-Pseudoeph 10-240 mg 1 tab PO DAILY PRN 10/04/19 10/08/19 History [Claritin-D 24 Hour] Allergies Allergy/AdvReac Type Severity Reaction Status Date / Time adhesive tape Allergy Rash/Hives Verified 10/08/19 06:42 Surgical - Exam Vital Signs Temp Pulse Resp BP Pulse Ox 98.1 F 74 18 153/78 96 10/08/19 06:47 10/08/19 06:47 10/08/19 06:47 10/08/19 06:47 10/08/19 06:47 Physical exam: General: Well-developed, well-nourished HEENT: Normocephalic, sclerae nonicteric Abdomen: Nontender, nondistended, reducible epigastric incisional hernia fascial defect 4 x 5 cm Extremities: No edema Neuro: Alert and oriented Results - Labs Abnormal Lab Results - Last 24 Hours (Table) 10/08/19 Range/Units 06:57 POC Glucose (mg/dL) 126 H (75-99) mg/dL Assessment and Plan (1) Incisional hernia Narrative/Plan: Will proceed with incisional hernia repair with mesh. Risks of bleeding, infection, recurrence, bladder and bowel injury, numbness, nerve injury were discussed with the patient. The patient understands and wishes to proceed. Current Visit: Yes Status: Acute Code(s): K43.2 - INCISIONAL HERNIA WITHOUT OBSTRUCTION OR GANGRENE SNOMED Code(s): 067994902
--- NOTE | 2019-10-08 08:19 | P.ANPRN ---
Procedure Note - Anesthesia - Nerve Block Performed Bilateral Rectus Abdominis Single Time Out Performed: Yes Date of Procedure: 10/08/19 Procedure Start Time: 07:01 Procedure Stop Time: 07:15 Location of Patient: PreOp Indication: Acute Post-Operative Pain, Requested by Surgeon Specifically requested for management of pain by DrJose: Logan French Sedation Type: Sedate with meaningful contact maintained Preparation: Sterile Prep Position: Supine Catheter: None Needle Types: Pajunk Needle Gauge: 20 Ultrasound used to visualize needle placement: Yes Ultrasound used to observe medication spread: Yes Injectate: Other (see comment) (Ropivacaine 0.25%/lidocaine 0.5% 25 mL per side) Adjunct: Epinephrine (see comment for dilution ratio) (1:200,000) Blood Aspirated: No Pain Paresthesia on Injection Noted: No Resistance on Injection: Normal Image Stored and Saved: Yes Events: Uneventful and Well Tolerated
[2019-10-08] MEDS ORDERED: BUPIVACAINE (PF) 0.25% 30 ML VIAL SQ ONE (08:29)
[2019-10-08] MEDS ORDERED: LACTATED RINGERS 1,000 ML IV ONE (09:29)
[2019-10-08 09:48] VITALS: TEMP 97.1
[2019-10-08] MEDS: HYDROmorphone 0.5 MG/0.5 ML SYRINGE IVP PRN ×4 (09:56→10:30)
--- NOTE | 2019-10-08 10:06 | P.OP ---
Date of Procedure: 10/08/19 Procedure(s) Performed: PREOPERATIVE DIAGNOSIS: Reducible incisional hernia POSTOPERATIVE DIAGNOSIS: Same PROCEDURE: Reducible incisional hernia with mesh SURGEON: Gillian EBL: Minimal ANESTHESIA: Gen. COMPLICATIONS: None OPERATIVE PROCEDURE: Patient placed on the operating table in the supine position. Abdomen was prepped and draped in usual sterile fashion. The previous incision was re-incised superiorly. The previous thickened scar was excised. Dissection through the subcutaneous tissues took place using electrocautery. The hernia sac was carefully dissected down to the level of the fascia where it was excised. The size of the fascial defect was 5 x 5 cm. The edges of the fascia were debrided slightly. The preperitoneal space was then fully dissected using blunt dissection and electrocautery. The 8 x 14 cm Ventrio mesh was utilized and placed beneath the fascia. This was then sutured to the fascia using trans-fascial 0 Ethibond sutures. The defect was closed vertically using overlapping interrupted 0 Ethibond mattress sutures. The subcutaneous tissues were closed using 3-0 Vicryl sutures. The skin was closed using a running 4-0 Monocryl stitch. Skin glue and sterile dressings were applied. DISPOSITION: Stable to recovery room
[2019-10-08] MEDS ORDERED: traMADol 50 MG TAB PO PRN (10:08)
[2019-10-08] MEDS ORDERED: NALOXONE 0.4 MG/ML 1 ML VIAL IV PRN (10:08)
[2019-10-08 11:19] VITALS: RESP 18
[2019-10-08 11:21] VITALS: BP 125/75; PULSE 69
== END 2019-10-08 11:53 | disposition home or self-care (01) ==
LOC: OR 06:12
PROVIDERS: ATTEND Surgery
DX: K43.2 Incisional hernia without obstruction or gangrene (principal); E11.9 Type 2 diabetes mellitus without complications; F41.9 Anxiety disorder, unspecified; F32.9 Major depressive disorder, single episode, unspecified; N92.0 Excessive and frequent menstruation with regular cycle; F17.210 Nicotine dependence, cigarettes, uncomplicated; Z98.51 Tubal ligation status; Z98.890 Other specified postprocedural states; Z98.42 Cataract extraction status, left eye; Z98.41 Cataract extraction status, right eye; Z90.49 Acquired absence of other specified parts of digestive tract; Z90.710 Acquired absence of both cervix and uterus; Z80.0 Family history of malignant neoplasm of digestive organs; Z91.09 Other allergy status, other than to drugs and biological substances
CPT/HCPCS: 49560; 49568; 64488; 88302; C1781; J2250; J1644; J1100; J2710; J0690; J2405; J2001 ×2; J3010; J2795; J2370; J0330; J2704; J1170

== ENCOUNTER → 2021-05-11 | Outpatient (CLI) | payer BC ==
--- NOTE | 2021-05-12 10:13 | MM ---
Reason for exam: screening (asymptomatic). Last mammogram was performed 2 years and 4 months ago. History: Took hormonal contraceptives for 15 years. Physical Findings: A clinical breast exam by your physician is recommended on an annual basis and results should be correlated with mammographic findings. MG Screening Mammo w CAD Bilateral CC and MLO view(s) were taken. Prior study comparison: January 23, 2019, bilateral MG screening mammo w CAD. November 10, 2015, bilateral MG 3d screening mammo w/cad. There are scattered fibroglandular densities. ASSESSMENT: Negative, BI-RAD 1 RECOMMENDATION: Routine screening mammogram of both breasts in 1 year.
== END | disposition home or self-care (01) ==
LOC: RADMAMWWP 11:19
PROVIDERS: ATTEND Obstetrics & Gynecology
DX: Z12.31 Encounter for screening mammogram for malignant neoplasm of breast (principal)
CPT/HCPCS: 77067

== ENCOUNTER → 2024-03-19 | Outpatient (CLI) | payer BC ==
--- NOTE | 2024-03-19 15:26 | MM ---
Reason for Exam: Screening (asymptomatic). Last mammogram was performed 2 year(s) and 10 month(s) ago. Patient History: Menarche at age 9. First Full-Term at age 23. Hysterectomy at age 48. Patient has history of breast feeding. Patient used Hormonal Contraceptives for 15 years. Patient used Estrogen and Progesterone for 2 years. Risk Values: Viola 5 year model risk: 1.4%. NCI Lifetime model risk: 9.9%. Prior Study Comparison: 11/10/2015 Bilateral Screening Mammogram, [facility]. 01/23/2019 Bilateral Screening Mammogram, [facility]. 05/11/2021 Bilateral Screening Mammogram, [facility]. Tissue Density: There are scattered areas of fibroglandular density. Findings: Analyzed By CAD. Right breast: There is no suspicious group of microcalcifications or new suspicious mass. Left breast: There is no suspicious group of microcalcifications or new suspicious mass. Overall Assessment: Negative, BI-RAD 1 Management: Screening Mammogram of both breasts in [address] [facility] will attempt to contact patient to return for supplemental views and ultrasound if indicated. Patient should continue monthly self-breast exams. A clinical breast exam by your physician is recommended on an annual basis. This exam should not preclude additional follow-up of suspicious palpable abnormalities. Note on Viola scores and lifetime risk: 1. A Voila score greater than 3% is considered moderate risk. If this is the case, consider specialist referral to assess eligibility for a risk reducing agent. 2. If overall lifetime risk for the development of breast cancer is 20% or higher, the patient may qualify for future screening with alternating mammogram and breast MRI. Electronically signed and approved by: Gerber Iverson DO
== END | disposition home or self-care (01) ==
LOC: RADMAMWWP 09:45
PROVIDERS: ATTEND Family Medicine
DX: Z12.31 Encounter for screening mammogram for malignant neoplasm of breast (principal)
CPT/HCPCS: 77063; 77067